=== PATIENT | male | born 1975 | race Caucasian/White ===

== ENCOUNTER 2018-03-02 10:39 | Outpatient (REF) | payer BC, SELFPAY ==
[2018-03-02 21:45] LABS: Abs Immature Grans 0.01 k/cumm (0.0-0.09); Absolute Basophil Count 0.05 k/cumm (0.0-0.2); Absolute Eosinophil Count 0.12 k/cumm (0.0-0.7); Absolute Lymphocyte Count 1.35 k/cumm (1.2-3.4); Absolute Monocyte Count 0.61 k/cumm (0.11-0.7); Absolute Neutrophil Count 5.95 k/cumm (1.2-6.7); Basophils % 0.6; Eosinophils % 1.5; HCT 46.9 % (40.0-50.0); HGB 15.8 g/dL (13.5-17.5); Immature Grans % 0.1; Lymphocytes % 16.7; Mean Corp. HGB Concentration 33.7 g/dL (32.0-36.0); Mean Corpuscular Hemoglobin 30.9 pg (27.0-33.0); Mean Corpuscular Volume 91.8 fL (80-95); Mean Platelet Volume 11.3 fL (8.0-11.0); Monocytes % 7.5; Neutrophils % 73.6; Platelet Count 236 x1000/uL (130-400); RBC 5.11 m/cumm (4.50-6.00); RBC Distribution Width 12.9 % (11.8-14.1); White Blood Cell Count 8.09 k/cumm (4.4-10.8)
[2018-03-02 21:53] LABS: Anion Gap 8.6 mmol/L (3-11); BUN 13 mg/dL (7-18); C-Reactive Protein 0.57 mg/dL (0.0-0.3); CO2 28.4 mmol/L (21.0-32.0); CREATININE 1.12 mg/dL (0.70-1.30); Calcium 8.6 mg/dL (8.5-10.1); Chloride 102 mmol/L (98-107); Glucose 163 mg/dL (70-100); Potassium 4.5 mmol/L (3.5-5.1); Sodium 139 mmol/L (136-145); Uric Acid 6.8 mg/dL (3.5-7.2)
[2018-03-02 22:52] LABS: ESR 6 MM/HR (0-15)
== END 2018-03-02 10:59 ==
LOC: NCHCN 10:39
PROVIDERS: PCP Family Medicine; Visit Provider Nurse Practitioner Family
DX: M79.672 Pain in left foot (principal)
CPT/HCPCS: 80048; 85652; 84550; 85025; 86140

== ENCOUNTER 2018-05-30 15:00 | Outpatient (REF) | payer BC, SELFPAY ==
[2018-05-30 20:50] LABS: ALT 95 U/L (12-78); AST 28 U/L (15-37); Albumin 4.1 g/dL (3.4-5.0); Alkaline Phosphatase 76 U/L (46-116); Anion Gap 10.3 mmol/L (3-11); BUN 16 mg/dL (7-18); Bilirubin, Total 0.4 mg/dL (0.2-1.0); C-Reactive Protein 0.65 mg/dL (0.0-0.3); CO2 27.7 mmol/L (21.0-32.0); CREATININE 1.09 mg/dL (0.70-1.30); Chloride 100 mmol/L (98-107); Glucose 127 mg/dL (70-100); Lipase 234 U/L (73-393); Potassium 4.2 mmol/L (3.5-5.1); Sodium 138 mmol/L (136-145); Total Protein 7.7 g/dL (6.4-8.2); Uric Acid 7.3 mg/dL (3.5-7.2)
== END 2018-05-30 15:20 ==
LOC: NCHCN 15:00
PROVIDERS: PCP Family Medicine; Visit Provider Family Medicine
DX: R10.13 Epigastric pain (principal); M10.9 Gout, unspecified
CPT/HCPCS: 80053; 83690; 84550; 86140

== ENCOUNTER 2018-08-02 00:33 | Outpatient (CLI) | payer BC, SELFPAY ==
--- NOTE | 2018-08-02 08:20 | DI.US_ITS ---
SYMPTOMS/DIAGNOSIS: ELEVATED LIVER ENZYMES, R74.8 ABDOMINAL ULTRASOUND: The visualized portions of the aorta appear unremarkable. The inferior vena cava is normal. The liver is enlarged and appears echogenic. There is normal portal venous flow. No focal abnormality is apparent. The gallbladder wall is 2 mm thick. There is no evidence of cholelithiasis or ductal obstruction. As visualized, the head and body of the pancreas appear intact. The tail is not seen. The spleen has a maximum diameter of 11.7 cm and is acoustically homogeneous. The kidneys are unremarkable. The right kidney measures 12.8 cm, the left kidney 12.7 cm. There is no evidence of abdominal fluid. . SUMMARY: There is an apparent enlarged fatty liver. No focal hepatic abnormality is apparent.
== END 2018-08-02 00:53 ==
PROVIDERS: PCP Family Medicine; Visit Provider Family Medicine
DX: R74.8 Abnormal levels of other serum enzymes (principal); K76.0 Fatty (change of) liver, not elsewhere classified; R16.0 Hepatomegaly, not elsewhere classified
CPT/HCPCS: 76700

== ENCOUNTER 2018-10-03 09:01 | Outpatient (REF) | payer BC, SELFPAY ==
[2018-10-03 21:55] LABS: Ferritin 244 ng/mL (8-388); TSH (W/Ref FT4) 0.96 uIU/mL (0.358-3.74)
== END 2018-10-03 09:21 ==
LOC: NCHCN 09:01
PROVIDERS: PCP Family Medicine; Visit Provider Family Medicine
DX: R06.02 Shortness of breath (principal)
CPT/HCPCS: 82728; 84443

== ENCOUNTER 2019-06-15 19:16 | Outpatient (REF) | payer BC, SELFPAY ==
[2019-06-14 21:13] LABS: ALT 74 U/L (16-63); AST 23 U/L (15-37); Albumin 4.2 g/dL (3.4-5.0); Alkaline Phosphatase 67 U/L (46-116); Anion Gap 6.6 mmol/L (3-11); BUN 12 mg/dL (7-18); Bilirubin, Total 0.4 mg/dL (0.2-1.0); CO2 31.4 mmol/L (21.0-32.0); COMMENT (LAB VIEW ONLY) 151.37 mg/dL; CREATININE 1.05 mg/dL (0.70-1.30); Calcium 8.9 mg/dL (8.5-10.1); Calculated LDL 129 mg/dL; Chloride 103 mmol/L (98-107); Cholesterol 235 mg/dL (<200); Glucose 87 mg/dL (74-106); HDL Cholesterol 33 mg/dL (40-60); Microalb ug/mg Crea 1.4 ug/mg Cr; Potassium 4.1 mmol/L (3.5-5.1); Sodium 141 mmol/L (136-145); Total Protein 7.6 g/dL (6.4-8.2); Triglyceride 365 mg/dL (<150)
== END 2019-06-15 19:36 ==
LOC: NCHCN 19:16
PROVIDERS: PCP Family Medicine; Visit Provider Nurse Practitioner Family
DX: R53.83 Other fatigue (principal); I10 Essential (primary) hypertension; E66.9 Obesity, unspecified
CPT/HCPCS: 80053; 80061; 82043; 82570

== ENCOUNTER 2019-09-28 10:27 | Emergency (ER) | payer BC, SELFPAY ==
[2019-09-28] VITALS (25 sets, daily range): BP systolic 137–162; BP diastolic 61–102; PULSE 76–101; RESP 14–25; TEMP 36.6–37.1; O2SAT 91–97
--- NOTE | 2019-09-28 10:36 | W.ED.GENAD ---
Discharge Plan Disposition Patient Disposition: HOME Condition: Good Discharge Details Chief Complaint: Palpitatns Clinical Impression: Palpitations Primary Care Provider: Lashon Waldron ED Provider: Ling Lizarraga Home Meds and New Rx's Prescriptions: Continued lorazepam 0.5 mg tablet 0.5 mg PO QHS PRNRF: 0 lisinopril 20 mg tablet 20 mg PO DAILY RF: 0 omeprazole 20 mg capsule,delayed release(DR/EC) 20 mg PO DAILY PRNRF: 0 Discharge Instructions Instructions: Palpitations (ED) Additional Instructions: Drink plenty of fluids and get plenty of rest. Return the Holter monitor as directed. Follow-up with your primary care doctor in 1 week for reevaluation for referral for a longer duration dry cleaning manager if needed or a stress test if symptoms persist or worsen. Return to the emergency department with any worsening or new concerning symptoms. Discharge Data Discharge Physician: Ling Lizarraga Medical Decision Making 1045 -- 43-year-old male with a history of palpitations, hypertension, obesity, former tobacco smoker presents with palpitations since last night and left arm pain this morning. Also admits to a few months of intermittent chest pressure. He is a daily alcoholic drinker and had 4 drinks last night. EKG on arrival notes a rate of 94, sinus, no acute ST elevation or depression. Patient appears nontoxic and in no acute distress. He denies any palpitations or chest pain at present. Lungs clear. Of note patient was seen here 5 years ago for similar presentation and had a Holter monitor which noted occasional PVCs and a stress test was negative for ischemia. History and presentation not consistent with dissection, PE. Considering patient's history and risk factors, will obtain a cardiac work-up, chest x-ray and give fluids and reassess. 1215 --labs and imaging reviewed and unremarkable. Negative troponin. Negative d-dimer. Chest x-ray negative. Patient reassessed -he is texting on phone and currently asymptomatic. Patient states he feels good to go home. We will place a Holter monitor and refer for follow-up with primary care doctor. It was discussed that a longer duration dry cleaning manager stress test could be indicated if symptoms persist or worsen. Usual and customary return precautions given prior to discharge. Medical Records Medical records reviewed: Yes I reviewed the patient's medical records. Imaging Data Radiologic Study: Radiologist's impression: XR CHEST 2V PA LATERAL CLINICAL HISTORY: chest pain, palpitations, r/o acute disease TECHNIQUE: 2D digital imaging was performed. COMPARISON: CHEST 2 VIEWS PA,LAT from 04/25/2015 FINDINGS: The heart is not enlarged. The lungs are clear and well expanded. No pleural effusion seen. Mediastinal contours appear intact. IMPRESSION: Normal chest Lab Data Lab results reviewed: Yes I reviewed the patient's lab results. Labs: Laboratory Tests Range/Units 09/28/19 09/28/19 09/28/19 10:40 10:40 10:40 WBC (4.4-10.8) k/cumm 7.51 RBC (4.50-6.00) m/cumm 5.04 Hgb (13.5-17.5) g/dL 16.0 Hct (40.0-50.0) % 45.1 MCV (80-95) fL 89.5 MCH (27.0-33.0) pg 31.7 MCHC (32.0-36.0) g/dL 35.5 RDW (11.8-14.1) % 12.5 Plt Count (130-400) x1000/uL 266 MPV (8.0-11.0) fL 11.0 Immature Gran % % 0.3 Neutrophils % 71.0 Lymphocytes % 21.6 Monocytes % 5.3 Eosinophils % 1.3 Basophils % 0.5 Absolute Neutrophils (1.2-6.7) k/cumm 5.33 Absolute Lymphocytes (1.2-3.4) k/cumm 1.62 Absolute Monocytes (0.11-0.7) k/cumm 0.40 Absolute Eosinophils (0.0-0.7) k/cumm 0.10 Absolute Basophils (0.0-0.2) k/cumm 0.04 D-Dimer (<500) ng/mlFEU 171 Sodium (136-145) mmol/L 137 Potassium (3.5-5.1) mmol/L 3.9 Chloride (98-107) mmol/L 102 Carbon Dioxide (21.0-32.0) mmol/L 26.7 Anion Gap (3-11) mmol/L 8.3 BUN (7-18) mg/dL 15 Creatinine (0.70-1.30) mg/dL 1.04 Estimated GFR/1.73 m2 (mL/min/1.73m2) >= 60.00 Glucose (74-106) mg/dL 196 H Calcium (8.5-10.1) mg/dL 8.7 Magnesium (1.8-2.4) mg/dL 2.1 Total Bilirubin (0.2-1.0) mg/dL 0.4 AST (15-37) U/L 31 ALT (16-63) U/L 97 H Alkaline Phosphatase (46-116) U/L 71 Troponin I (<0.06) ng/Ml < 0.05 Total Protein (6.4-8.2) g/dL 7.6 Albumin (3.4-5.0) g/dL 4.0 ECG Data Attestation: I personally reviewed and interpreted this ECG (s) as follows: Interpretation: Rate of 94, sinus, no acute ST elevation or depression. OH 154. QTc 428. QRS 102. HPI General Mode of arrival: ambulatory. Date/Time Provider Initiated Documentation: 09/28/19 10:29. Limitations to Documentation: no limitations. Information obtained by: patient. HPI Narrative: Patient is a 43-year-old male with a history of palpitations, hypertension, obesity presents for palpitations since yesterday and left arm pain this morning. Patient states he was sitting at home last night when the symptoms of palpitations started. He states he drank whiskey and the palpitations resolved. He states the palpitations returned this morning. He states he usually drinks 1-2 drinks daily but had 5 alcoholic drinks last night. Patient states he is also having 3 to 4 months of intermittent substernal chest pressure. He denies any chest pain or palpitations at present. He admits to occasional nausea and dizziness but denies any shortness of breath. He denies any recent fever, cough, travel, surgery, leg pain. He states he has occasional bilateral leg swelling but states he eats a lot of salt. Patient drove himself to the emergency department. Related Data Home Medications Medication Instructions Recorded Confirmed lisinopril 20 mg tablet 20 mg PO DAILY 09/25/19 09/28/19 lorazepam 0.5 mg tablet 0.5 mg PO QHS PRN 09/25/19 09/28/19 omeprazole 20 mg capsule,delayed 20 mg PO DAILY PRN 09/25/19 09/28/19 release Allergies Allergy/AdvReac Type Severity Reaction Status Date / Time Penicillins Allergy Unknown Unverified 09/28/19 10:38 Review of Systems All systems reviewed & are unremarkable except as noted in HPI and below Constitutional Constitutional: Reports as per HPI, Denies chills and Denies fever(s) Eyes Eyes: Denies blurry vision ENT Ears, Nose, Mouth, and Throat: Denies dizziness, Denies sore throat and Denies throat swelling Cardiovascular Cardiovascular: Denies chest pain, Reports rapid heart rate and Denies dyspnea Respiratory Respiratory: Denies cough and Denies dyspnea Gastrointestinal Gastrointestinal: Denies abdominal pain, Denies diarrhea and Denies vomiting Genitourinary Genitourinary: Denies hematuria and Denies dysuria Musculoskeletal Musculoskeletal: Denies back pain and Denies numbness Integumentary/Breasts Skin/Breast: Denies lesions and Denies rash Neurologic Neurologic: Denies dizziness, Denies localized weakness and Denies numbness Allergic/Immunologic Allergic/Immunologic: Denies throat swelling [facility] Medical History (Updated 09/28/19 @ 12:16 by Ling Lizarraga DO) Erectile dysfunction (Acute) Fatigue (Acute) Fatty (change of) liver, not elsewhere classified (Acute) Foot pain, left (Acute) Gout (Chronic) History of cigarette smoking (Acute) Hypertension (Chronic) Obesity (Chronic) Social History Smoking/Tobacco Use Status: Former Tobacco Use Alcohol Intake: current Alcohol Intake frequency: 0-2 drinks per day Drug use: Never Substance use type: does not use Do you feel safe at home: Yes Do you feel safe in your relationship?: Yes Exam Const General: cooperative, healthy appearing and no acute distress HENMT Head: normal to inspection Face and sinus: normal facial exam Eyes General: appearance normal, both eyes and all related structures EOM: EOM intact bilaterally Neck Neck: normal visual inspection and No submandibular swelling Lymphatic: no lymphadenopathy noted Chest Chest: normal inspection of the chest and no tenderness Resp Effort & Inspection: normal respiratory effort and able to speak in complete sentences Auscultation: clear to auscultation bilaterally Cardio Rate: regular rate Rhythm: regular rhythm GI Inspection: normal to inspection Palpation: soft, not firm, not rigid and nontender Auscultation: normal bowel sounds Skin General skin exam: no rashes or lesions noted Neuro General: patient alert, patient awake and patient oriented x3 Cognition: normal cognition Speech: speech normal Motor: muscle tone normal throughout Sensory Exam: no sensory deficits noted Extrem General: normal to inspection, full ROM, capillary refill normal, no calf tenderness bilaterally and no edema Psych Appearance: grossly normal Mental Status: mental status grossly normal Speech and Movement: speech and movement normal Affect: normal affect
[2019-09-28] MEDS: Normal Saline 1,000 ML 1000 ML IV (11:06)
[2019-09-28 11:14] LABS: Abs Immature Grans 0.02 k/cumm (0.0-0.09); Absolute Basophil Count 0.04 k/cumm (0.0-0.2); Absolute Lymphocyte Count 1.62 k/cumm (1.2-3.4); Absolute Neutrophil Count 5.33 k/cumm (1.2-6.7); Basophils % 0.5; Eosinophils % 1.3; HCT 45.1 % (40.0-50.0); Immature Grans % 0.3 %; Lymphocytes % 21.6; Mean Corp. HGB Concentration 35.5 g/dL (32.0-36.0); Mean Corpuscular Hemoglobin 31.7 pg (27.0-33.0); Mean Corpuscular Volume 89.5 fL (80-95); Monocytes % 5.3; Platelet Count 266 x1000/uL (130-400); RBC 5.04 m/cumm (4.50-6.00); RBC Distribution Width 12.5 % (11.8-14.1); White Blood Cell Count 7.51 k/cumm (4.4-10.8)
--- NOTE | 2019-09-28 11:20 | DI.RAD_ITS ---
EXAM: XR CHEST 2V PA LATERAL CLINICAL HISTORY: chest pain, palpitations, r/o acute disease TECHNIQUE: 2D digital imaging was performed. COMPARISON: CHEST 2 VIEWS PA,LAT from 04/25/2015 FINDINGS: The heart is not enlarged. The lungs are clear and well expanded. No pleural effusion seen. Mediastin al contours appear intact. IMPRESSION: Normal chest
[2019-09-28 11:32] LABS: ALT 97 U/L (16-63); AST 31 U/L (15-37); Alkaline Phosphatase 71 U/L (46-116); Anion Gap 8.3 mmol/L (3-11); BUN 15 mg/dL (7-18); Bilirubin, Total 0.4 mg/dL (0.2-1.0); CO2 26.7 mmol/L (21.0-32.0); CREATININE 1.04 mg/dL (0.70-1.30); Calcium 8.7 mg/dL (8.5-10.1); Chloride 102 mmol/L (98-107); Glucose 196 mg/dL (74-106); Magnesium 2.1 mg/dL (1.8-2.4); Potassium 3.9 mmol/L (3.5-5.1); Sodium 137 mmol/L (136-145); Total Protein 7.6 g/dL (6.4-8.2)
[2019-09-28 11:37] LABS: Troponin I < 0.05 ng/Ml (<0.06)
[2019-09-28 12:10] LABS: D-Dimer 171 ng/mlFEU (<500)
== END 2019-09-28 13:00 | disposition home or self-care (01) ==
PROVIDERS: Emergency Provider Physician Assistant; PCP Internal Medicine
DX: R00.2 Palpitations (principal); R07.89 Other chest pain; Z72.89 Other problems related to lifestyle; I10 Essential (primary) hypertension; Z87.891 Personal history of nicotine dependence
CPT/HCPCS: 80053; 93005; 96360; 99285; 71046; 83735; 84484; 85025; 85379; 93010; 93225; 99284

== ENCOUNTER 2019-10-01 11:27 | Outpatient (CLI) | payer BC, SELFPAY ==
--- NOTE | 2019-10-01 13:42 | W.HOLTRPT ---
Date of service: 10/01/19 Time of Service: 13:42 Holter Monitor Report Holter Monitor Note: This is a 2-day Holter monitor ordered for the indication of palpitations. ?The patient was in normal sinus rhythm for the majority of the recording. ?There were 2 episodes of supraventricular tachycardia with the longest lasting 3 beats. There were rare PACs. ?There were no episodes of ventricular tachycardia and rare (0.2%) single ventricular ectopic beats. ?There were no episodes of atrial fibrillation, no evidence of high degree heart block and no pauses greater than 3 seconds. ?There were no patient triggered events.
== END 2019-10-01 11:47 ==
PROVIDERS: PCP Internal Medicine; Visit Provider Internal Medicine
DX: R00.1 Bradycardia, unspecified (principal); I47.1 Supraventricular tachycardia
CPT/HCPCS: 93226

== ENCOUNTER 2019-10-05 19:17 | Emergency (ER) | payer BC, SELFPAY ==
[2019-10-05] VITALS (30 sets, daily range): BP systolic 132–166; BP diastolic 69–95; PULSE 74–87; RESP 10–25; TEMP 36.6–36.7; O2SAT 94–99
--- NOTE | 2019-10-05 20:03 | W.ED.GENAD ---
Discharge Plan Disposition Patient Disposition: HOME Condition: Serious Discharge Details Chief Complaint: Chest Pain Clinical Impression: Hypertension, Palpitations, Chest pain Primary Care Provider: Lashon Waldron ED Provider: Ney Coelho Home Meds and New Rx's Prescriptions: New metoprolol succinate 25 mg tablet extended release 24 hr 25 mg PO DAILY Qty: 30 RF: 0 Continued lorazepam 0.5 mg tablet 0.5 mg PO QHS PRNRF: 0 lisinopril 20 mg tablet 20 mg PO DAILY RF: 0 omeprazole 20 mg capsule,delayed release(DR/EC) 20 mg PO DAILY PRNRF: 0 Discharge Instructions Instructions: Chest Pain (ED), Heart Palpitations (ED), Hypertension (ED) Additional Instructions: You should have a cardiac stress test performed soon as possible. Please call to arrange stress test. Please follow-up with your primary care physician. Call on Tuesday. Please contact your primary care physician to arrange follow-up. Please decrease alcohol consumption as alcohol is known to cause cardiac irritability. Return to the ER for any worsening or new concerning symptoms. Referrals: Lashon Waldron [Primary Care Provider] - Medical Decision Making 21:30 -- 43-year-old male with history of hypertension, former smoker, here with palpitations intermittent over the past couple weeks, generalized weakness and generally not feeling well today, hypertensive at home despite taking lisinopril, also with left anterior chest discomfort that is focal and without radiation. Patient was recently seen here in the emergency department and had nondiagnostic work-up. He did complete 48-hour Holter monitoring. I obtained and reviewed Holter record. Holter monitor from 10/01/2019 interpretation was reviewed: Holter Monitor Note: This is a 2-day Holter monitor ordered for the indication of palpitations. ?The patient was in normal sinus rhythm for the majority of the recording. ?There were 2 episodes of supraventricular tachycardia with the longest lasting 3 beats. There were rare PACs. ?There were no episodes of ventricular tachycardia and rare (0.2%) single ventricular ectopic beats. ?There were no episodes of atrial fibrillation, no evidence of high degree heart block and no pauses greater than 3 seconds. ?There were no patient triggered events. Consider arrhythmia. Screening ECG was reviewed and interpreted by me: Sinus rhythm, 75 bpm, normal axis, subtle ST depressions are noted laterally V4 to V6, no delta wave, no signs of Brugada or hypertrophic obstructive cardiomyopathy. No significant change in ECG compared to 09/28/2019. Consider ACS. Initial labs reviewed and initial troponin negative. Plan to obtain delta troponin. Patient has had recent pitting edema of the legs. Consider congestive heart failure - will check BNP. Considered hyperthyroidism. TSH normal. Consider electrolyte abnormalities. Electrolytes are within normal limits. --Repeat ECG was reviewed and interpreted by me: Normal sinus rhythm 75 bpm, normal axis, no change from prior. Repeat delta troponin at 3 hours was normal and unchanged from prior. D-dimer negative. Patient was reassessed and has remained stable, BP improved, has not had symptoms, noted feels great. No alarms noted on cardiac monitoring. Plan will be to initiate treatment with metoprolol to hopefully reduce palpitations and treat persistent hypertension. Plan will be for outpatient follow-up with PCP and outpatient stress testing. Disposition decision was made weighing the risks and benefits of hospitalization versus outpatient treatment, the risk for further decompensation, and the patient's wishes. The patient was stable and requested discharge. Prior to discharge, my usual and customary return precautions were reviewed with the patient - this included follow-up instructions and reason to return to the emergency department if condition worsens, does not improve as expected, or other new concerns arise. HPI General Mode of arrival: ambulatory. Date/Time Provider Initiated Documentation: 10/05/19 19:21. Limitations to Documentation: no limitations. Information obtained by: patient. HPI Narrative: 43-year-old male with history of hypertension, presents today with chief complaint of palpitations. Patient notes he has had palpitations intermittently over the past 2 weeks or so. Palpitations come and brief episodes lasting minutes and then resolved. He describes them as a fluttering or skipping a beat. Patient also notes some associated chest discomfort that is described as cramp in his ribs, localized to left lower anterior chest. Discomfort is focal and does not radiate. No associated back pain. Today has had associated jitteriness and some generalized weakness. This afternoon he has been generally not feeling well. His checked his blood pressure and was noted to be elevated 167/101 and he decided to come to the emergency department for evaluation. Of note, he was seen here and evaluated in the emergency department on 09/28/2019. Patient does have a history of hypertension and has been taking antihypertensive as prescribed. He does note that he has had some edema bilateral lower extremities that was first noticed a couple weeks ago. He is not sure if this was present in the past. Related Data Home Medications Medication Instructions Recorded Confirmed lisinopril 20 mg tablet 20 mg PO DAILY 09/25/19 10/05/19 lorazepam 0.5 mg tablet 0.5 mg PO QHS PRN 09/25/19 10/05/19 omeprazole 20 mg capsule,delayed 20 mg PO DAILY PRN 09/25/19 10/05/19 release metoprolol succinate 25 mg PO DAILY #30 tab 10/05/19 Previous Rx's Medication Instructions Recorded metoprolol succinate 25 mg PO DAILY #30 tab 10/05/19 Allergies Allergy/AdvReac Type Severity Reaction Status Date / Time Penicillins Allergy Unknown Unverified 10/05/19 19:26 General Stated Complaint: Chest Pain CANDE: 3 Review of Systems All systems reviewed & are unremarkable except as noted in HPI and below Constitutional Constitutional: Denies fever(s) Cardiovascular Cardiovascular: Reports chest pain and Denies dyspnea Respiratory Respiratory: Reports cough (Chronic unchanged) and Denies dyspnea Gastrointestinal Gastrointestinal: Denies abdominal pain, Denies nausea and Denies vomiting [facility] Medical History Erectile dysfunction (Acute) Fatigue (Acute) Fatty (change of) liver, not elsewhere classified (Acute) Foot pain, left (Acute) Gout (Chronic) History of cigarette smoking (Acute) Hypertension (Chronic) Obesity (Chronic) Social History Smoking/Tobacco Use Status: Former Tobacco Use Alcohol Intake: current Alcohol Intake frequency: 0-2 drinks per day Alcohol type: beer, wine and hard liquor Drug use: Never Substance use type: does not use Do you feel safe at home: Yes Do you feel safe in your relationship?: Yes Exam Const General: cooperative and no acute distress HENMT Mouth: moist mucous membranes Eyes Conjunctivae: normal conjunctivae Sclera: normal sclerae Neck Neck: trachea midline Resp Auscultation: clear to auscultation bilaterally, no rales, no rhonchi and no wheezes Cardio Jugular venous pressure: no JVD Rate: regular rate and not tachycardic Rhythm: regular rhythm GI Palpation: soft, not firm, no guarding, no masses, not rigid and nontender Skin General skin exam: no rashes or lesions noted Neuro General: patient alert, patient awake and tone normal Extrem General: no calf tenderness and edema Laterality: bilateral (Trace pitting up to shins) Psych Appearance: grossly normal Mental Status: mental status grossly normal Course Vital Signs Vital signs: Vital Signs Temperature 36.6 C 10/05/19 19:21 Pulse 75 10/05/19 19:21 Respiratory Rate 19 10/05/19 19:21 Blood Pressure 166/95 H 10/05/19 19:21 Pulse Oximetry 99 10/05/19 19:21 Temperature 36.6 C 10/05/19 19:21 Temperature Source Skin 10/05/19 19:21 Pulse 79 10/05/19 19:24 Pulse 83 10/05/19 19:25 Respiratory Rate 18 10/05/19 19:25 Respiratory Effort Non-Labored 10/05/19 19:32 Respiratory Pattern Normal 10/05/19 19:32 Blood Pressure 166/95 H 10/05/19 19:24 Blood Pressure Mean 111 10/05/19 19:24 Blood Pressure Position Supine 10/05/19 19:21 Pulse Oximetry 98 10/05/19 19:25 Oxygen Delivery Method Room Air 10/05/19 19:21 Oxygen Flow Rate 0 10/05/19 19:21
[2019-10-05 20:18] LABS: Abs Immature Grans 0.02 k/cumm (0.0-0.09); Absolute Basophil Count 0.04 k/cumm (0.0-0.2); Absolute Eosinophil Count 0.14 k/cumm (0.0-0.7); Absolute Monocyte Count 1.03 k/cumm (0.11-0.7); Absolute Neutrophil Count 6.23 k/cumm (1.2-6.7); Basophils % 0.4; Eosinophils % 1.4; HCT 48.1 % (40.0-50.0); HGB 16.5 g/dL (13.5-17.5); Immature Grans % 0.2 %; Lymphocytes % 25.8; Mean Corp. HGB Concentration 34.3 g/dL (32.0-36.0); Mean Corpuscular Volume 90.2 fL (80-95); Mean Platelet Volume 10.6 fL (8.0-11.0); Monocytes % 10.2; Platelet Count 275 x1000/uL (130-400); RBC 5.33 m/cumm (4.50-6.00); RBC Distribution Width 12.6 % (11.8-14.1); White Blood Cell Count 10.06 k/cumm (4.4-10.8)
--- NOTE | 2019-10-05 20:46 | NUR.NOTE ---
report given to MARLEY Matthews
[2019-10-05 21:03] LABS: ALT 113 U/L (16-63); AST 33 U/L (15-37); Albumin 4.2 g/dL (3.4-5.0); Alkaline Phosphatase 62 U/L (46-116); Anion Gap 11.4 mmol/L (3-11); BUN 14 mg/dL (7-18); Bilirubin, Total 0.4 mg/dL (0.2-1.0); CO2 26.6 mmol/L (21.0-32.0); CREATININE 1.08 mg/dL (0.70-1.30); Calcium 8.9 mg/dL (8.5-10.1); Chloride 101 mmol/L (98-107); Glucose 95 mg/dL (74-106); Magnesium 2.4 mg/dL (1.8-2.4); NT-proBNP 7 pg/mL (<300); Potassium 3.9 mmol/L (3.5-5.1); Sodium 139 mmol/L (136-145); TSH (W/Ref FT4) 0.96 uIU/mL (0.36-3.74); Total Protein 8.1 g/dL (6.4-8.2)
[2019-10-05 21:08] LABS: Troponin I < 0.05 ng/Ml (<0.06)
[2019-10-05 21:25] LABS: D-Dimer 235 ng/mlFEU (<500)
[2019-10-05 22:47] LABS: Troponin I < 0.05 ng/Ml (<0.06)
[2019-10-05] MEDS: Metoprolol CR 25 MG TABCR PO (23:00)
== END 2019-10-05 23:00 | disposition home or self-care (01) ==
PROVIDERS: Emergency Provider Student in an Organized Health Care Education/Training Program; PCP Internal Medicine
DX: R00.2 Palpitations (principal); R07.89 Other chest pain; I10 Essential (primary) hypertension
CPT/HCPCS: 80053; 93005; 99284; 83735; 83880; 84443; 84484; 85025; 85379; 93010

== ENCOUNTER 2019-10-23 01:50 | Outpatient (CLI) | payer BC, SELFPAY ==
--- NOTE | 2019-10-23 08:00 | ETT_ITS ---
APPROVED REPORT Exam: Exercise Treadmill Patient Location: Out-Patient Room/Bed: Stress Nurse: Lisa Mix RN BMI: 38.25 Baseline Rhythm: Sinus Rhythm Indications: Palpitations. Hypertension. Medical History Medical History: HTN Cardiac Medications: Metoprolol succinate. Lisinopril. , Allergies: Penicillins Cardiac Risk Factors: HTN. Borderline HLD. Former smoker. Exercise History: Physically active Lung Sounds: Clear to auscultation Heart Sounds: Regular Stress Test Details Test: Exercise stress testing was performed using a Jair protocol. Rest Stress HR Resting HR Supine: 75 bpm Max Heart Rate (APMHR): 176 bpm Resting HR Standin bpm Target HR (85% APMHR): 149 bpm Max HR Achieved: 171 bpm % of APMHR: 97 Recovery HR: 103 bpm HR response to stress: Normal HR response to stress BP Resting BP Supine: 164/98 mmHg Resting BP Standin/102 mmHg Max BP: 180/92 mmHg Recovery BP: 174/94 mmHg BP response to stress: Normal blood pressure response to stress. Comment: Hypertensive BP at baseline ECG Resting ECG: Sinus Rhythm Ectopy: VPC Stress ECG: Sinus Tachycardia ST Change: No significant ST segment changes Arrhythmia: VPC's Comment: Infrequent VPC's Recovery ECG: Sinus Rhythm Recovery ST Change: No significant ST segment changes Clinical Reason for Termination: Fatigue Stress Symptoms: General Fatigue Exercise duration: 12 min0 sec Highest Stage Reached: Stage 4: 4.2 mph at 16% grade. Exercise capacity: 13.48 METs Functional Capacity: Average Capacity Stress ECG Conclusion 1. The patient exercised on the Jair protocol and completed a workload of 13.48 METS without symptom s to suggest angina 2. Hypertension at rest. Normal blood pressure and heart rate response to exercise 3. Normal resting electrocardiogram. No electrocardiographic evidence of myocardial ischemia at 97% of predicted heart rate for age 4. Sporadic ventricular ectopic beats were noted Stress Test Summary STAGE Time (mins) Speed (mph) Grade (%) HR BP SYMPTOMS METS Supine 75 164/98 Standing 88 170/102 1 3 1.7 10 111 172/96 4.6 2 6 2.5 12 124 178/94 7 3 9 3.4 14 145 176/98 10.2 4 12 4.2 16 171 12.9 1 min recovery 132 180/92 3 min recovery 117 178/96 6 min recovery 107 174/94 9 min recovery 103
== END 2019-10-23 02:10 ==
PROVIDERS: PCP Internal Medicine; Visit Provider Nurse Practitioner Family
DX: R00.2 Palpitations (principal); I10 Essential (primary) hypertension; Z87.891 Personal history of nicotine dependence
CPT/HCPCS: 93017

== ENCOUNTER 2020-03-04 08:30 | Outpatient (REF) | payer BC, SELFPAY ==
[2020-03-04 21:05] LABS: Calculated LDL 89 mg/dL (<100); Cholesterol 153 mg/dL (<200); Glucose 125 mg/dL (74-106); HDL Cholesterol 31 mg/dL (40-60); Triglyceride 168 mg/dL (<150)
== END 2020-03-04 08:50 ==
LOC: NCHCN 08:30
PROVIDERS: PCP Internal Medicine; Visit Provider Nurse Practitioner Family
DX: E78.5 Hyperlipidemia, unspecified (principal); E11.9 Type 2 diabetes mellitus without complications
CPT/HCPCS: 80061; 82947

== ENCOUNTER 2020-05-13 19:23 | Outpatient (REF) | payer BC, SELFPAY ==
[2020-05-13 21:51] LABS: Abs Immature Grans 0.07 10^3/uL (0.0-0.06); Absolute Eosinophil Count 0.07 10^3/uL (0.0-0.7); Absolute Monocyte Count 0.79 10^3/uL (0.1-0.8); Basophils % 0.4; Eosinophils % 0.5; HCT 45.7 % (40.0-50.0); HGB 15.3 g/dL (13.5-17.5); Immature Grans % 0.5; Lymphocytes % 10.3; MCH 31.1 pg (27.0-33.0); MCHC 33.5 % (32.0-36.0); MCV 92.9 fL (80-95); MPV 11.2 fL (8.0-11.0); Monocytes % 5.8; Neutrophils % 82.5; Nucleated RBC 0 %; Platelet Count 250 10^3/uL (130-400); RBC 4.92 10^6/uL (4.36-5.78); RDW 12.2 % (11.8-14.1); WBC 13.63 10^3/uL (4.4-10.8)
[2020-05-13 21:52] LABS: Absolute Basophil Count 0.05 10^3/uL (0.0-0.2); Absolute Neutrophil Count 11.24 10^3/uL (1.2-6.7)
[2020-05-13 22:36] LABS: Hemoglobin A1C 6.5 % (<5.7)
[2020-05-13 22:51] LABS: ALT 72 U/L (16-63); AST 30 U/L (15-37); Alkaline Phosphatase 84 U/L (46-116); Anion Gap 8.9 mmol/L (3-11); BUN 15 mg/dL (7-18); Bilirubin, Total 0.6 mg/dL (0.2-1.0); CO2 25.1 mmol/L (21.0-32.0); CREATININE 1.22 mg/dL (0.70-1.30); Calcium 8.6 mg/dL (8.5-10.1); Chloride 101 mmol/L (98-107); Glucose 204 mg/dL (74-106); Lipase 164 U/L (73-393); Potassium 4.3 mmol/L (3.5-5.1); Sodium 135 mmol/L (136-145); Total Protein 7.3 g/dL (6.4-8.2)
== END 2020-05-13 19:43 ==
LOC: NCHCN 19:23
PROVIDERS: PCP Internal Medicine; Visit Provider Nurse Practitioner Family
DX: R73.03 Prediabetes (principal); R10.9 Unspecified abdominal pain
CPT/HCPCS: 80053; 83690; 83036; 85025

== ENCOUNTER 2020-05-14 13:47 | Emergency (ER) | payer BC, SELFPAY ==
[2020-05-14 14:04] VITALS: BP 125/75; PULSE 104; RESP 18; TEMP 37.2; O2SAT 96
--- NOTE | 2020-05-14 14:15 | DI.CT_ITS ---
EXAM: CT ABDOMEN PELVIS W CLINICAL HISTORY: Abdominal pain TECHNIQUE: Imaging Protocol: Axial computed tomography images with coronal and sagittal reformatted images were created and reviewed CONTRAST MATERIAL: Intravenous: Omnipaque 350 Contrast volume:structured data in ml Oral: yes / no COMPARISON: No exams were available for comparison FINDINGS: ABDOMEN: Lung Bases: Mild benign-appearing increased markings in the posterior basal segment left lower lobe. No pleural effusion. Liver: Hepatic steatosis. No discrete focal hepatic lesions. Portal, Superior Mesenteric, and Splenic Veins: Gallbladder and Biliary Tract: No radiodense calculus or dilation. Pancreas: Normal density, no abnormal calcifications or inflammatory process. Spleen: Normal. Adrenals: No masses seen. Kidneys: Normal size, contour and axis. No radiodense stones or obstructive uropathy. No masses seen. Abdominal Aorta: Abdominal portion non-dilated. Bowel: No evidence of appendicitis. However, there is and prominent does streaking around the sigmoi d consistent with probable acute diverticulitis. No abscess seen. No air evident within the adjacen t urinary bladder to suggest fistulous communication. There is no air in the portal venous system. No hepatic abscess. No evidence for appendicitis. Peritoneal Cavity: Lymph Nodes: Within normal limits. Bones: Unremarkable. Soft Tissues: Unremarkable. PELVIS: Bladder: Symmetric distention, no gross wall thickening. Reproductive Organs: Unremarkable as visualized. Lymph Nodes: Within normal limits. Bones: Within normal limits. IMPRESSION: 1. Acute sigmoid diverticulitis. No evidence of abscess at this time. 2. Hepatic steatosis. No focal hepatic lesions. RADIATION DOSE DELIVERED: 1,301.67mGy.cm Total DLP DATA REPOSITORY: All CT scans at this facility are submitted to the National Radiology Data Registry (NRDR) Dose Index Registry (DIR) with the [employer] ([employer]). RADIATION OPTIMIZATION: All CT scans at this facility use at least one of these dose optimization te chniques: automated exposure control; mA and/or kV adjustment per patient size (includes targeted exa ms where dose is matched to clinical indication); or iterative reconstruction.
--- NOTE | 2020-05-14 14:24 | ED.GENADUL_ITS ---
Discharge Plan Disposition Patient Disposition: HOME Condition: Fair Discharge Details Clinical Impression: Diverticulitis Primary Care Provider: Lashon Waldron ED Provider: Peace Cárdenas Home Meds and New Rx's Prescriptions: New metronidazole 500 mg tablet 500 mg PO TID 10 Days Qty: 30 RF: 0 ciprofloxacin HCl 500 mg tablet 500 mg PO BID 7 Days Qty: 14 RF: 0 promethazine 25 mg tablet 25 mg PO TID PRN (Reason: nausea and vomiting) Qty: 10 RF: 0 Continued lorazepam 0.5 mg tablet 0.5 mg PO QHS PRNRF: 0 lisinopril 20 mg tablet 20 mg PO DAILY RF: 0 omeprazole 20 mg capsule,delayed release(DR/EC) 20 mg PO DAILY PRNRF: 0 metoprolol succinate 25 mg tablet extended release 24 hr 25 mg PO DAILY Qty: 30 RF: 0 Discharge Instructions Instructions: Diverticulitis (ED) Additional Instructions: Your imaging is consistent with diverticulitis. Please see the attached information on this. Please encourage water intake. You may continue with Tylenol and/or ibuprofen as needed for discomfort. Please take the antibiotics as prescribed. You are given this evening's dosing here. You may use the Phenergan as prescribed to help with any recurrence of nausea. Please advance your diet slowly. I would like you to follow-up with your primary care on Tuesday for reevaluation. Please call Tuesday morning to schedule appointment. If in the interim, you develop increased pain, fever/chills, inability to hydrate or other new/worsening symptoms please seek care urgently once again. Stand Alone Forms: Work Release Referrals: Lashon Waldron [Primary Care Provider] - Discharge Data Discharge Date/Time-TO BE ENTERED AT DEPARTURE: 05/14/20 18:37 Medical Decision Making <Isabel Dodson - Last Filed: 05/15/20 08:02> 44-year-old male presents to the ER with chief complaint of lower abdominal pain which began on Tuesday. Associated with nausea and diarrhea, no vomiting. No history of abdominal surgeries. He was seen by his PCP yesterday and had labs drawn which showed a white blood cell count elevated slightly at 13. He has a past medical history of hypertension, obesity he is a smoker. CBC shows elevated white blood cell count at 16.18, sodium is 132, glucose 136, calcium 8.4, total bilirubin 1.3. CT abdomen pelvis with IV contrast ordered is pending at this time. Parents to be signed out to oncoming provider ADEEL Delgadillo pending CT abdomen pelvis. Differential diagnosis includes appendicitis, diverticulitis, cholecystitis, UTI, gastroenteritis. <ADEEL Padilla - Last Filed: 05/14/20 23:14> Care transition myself from Cheryl Cruz NP with CT of his abdomen pending. CT reviewed by radiologist: FINDINGS: Lungs: Minimal posterior bilateral lower lobe dependent atelectasis. The visualized lung lehman are otherwise clear. Liver: Generalized hepatic steatosis. Gallbladder and bile ducts: Normal. No calcified stones. No ductal dilation. Pancreas: Normal. No ductal dilation. Spleen: Normal. No splenomegaly. Adrenal glands: Normal. No mass. Kidneys and ureters: Normal. No hydronephrosis. Stomach and bowel: Diffuse sigmoid mesenteric fat stranding with sigmoid colon wall thickening and multiple diverticula consistent with acute diverticulitis. No evidence for free air to suggest diverticular perforation. No steven diverticular abscess. Appendix: Normal appendix. No secondary signs of appendicitis. Intraperitoneal space: See Stomach and bowel finding. Vasculature: Unremarkable. No abdominal aortic aneurysm. Lymph nodes: Unremarkable. No enlarged lymph nodes. Urinary bladder: Left superolateral urinary bladder wall thickening due to serosal inflammation from the diverticulitis but no colovesicular fistula at this time. Reproductive: Unremarkable as visualized. Bones/joints: Unremarkable. No acute fracture. Soft tissues: Unremarkable. IMPRESSION: 1. Acute uncomplicated diverticulitis. Adjacent superolateral left urinary bladder wall thickening but no communication to suggest colovesicular fistula at this time. 2. Mild generalized hepatic steatosis. Discussed the findings with the patient. He and I discussed potential risks associated with this. We discussed p.o. versus IV antibiotics. The patient he has had some nausea but not endorsing any nausea currently. He did refuse the morphine and Zofran that was initially offered to him. He would prefer to try p.o. antibiotics with hopes to be able to be discharged home with close follow- up with his primary care. We will give him Flagyl and ofloxacin orally here as well as a ciprofloxacin to ensure that he can be able to tolerate this PO. Patient tolerated meds well. Would like ot be discharged. He was given strict return precautions. He will call his PCP on Tuesday, I would like for him to be reassessed at that time. Will prescribe Phenergan in the event he has recurrence of his nausea. He has declined antiemetics while here. He will continue to take antibiotics as prescribed. All of his questions and concerns were addressed, he is in agreement with this plan. HPI <Isabel Dodson - Last Filed: 05/15/20 08:02> General Mode of arrival: ambulatory . Date/Time Provider Initiated Documentation: 05/14/20 13:52 . Limitations to Documentation: no limitations . Information obtained by: patient . HPI Narrative: 44-year-old male presents to the ER with chief complaint of lower abdominal pain which began on Tuesday. Associated with nausea and diarrhea, no vomiting. No history of abdominal surgeries. He was seen by his PCP yesterday and had labs drawn which showed a white blood cell count elevated slightly at 13. He has a past medical history of hypertension, obesity he is a smoker. Related Data Home Medications Medication Instructions Recorded Confirmed lisinopril 20 mg tablet 20 mg PO DAILY 09/25/19 10/05/19 lorazepam 0.5 mg tablet 0.5 mg PO QHS PRN 09/25/19 10/05/19 omeprazole 20 mg capsule,delayed 20 mg PO DAILY PRN 09/25/19 10/05/19 release metoprolol succinate 25 mg PO DAILY #30 tab 10/05/19 ciprofloxacin HCl 500 mg PO BID 7 Days #14 tab 05/14/20 metronidazole 500 mg PO TID 10 Days #30 tab 05/14/20 promethazine 25 mg PO TID PRN #10 tab 05/14/20 Previous Rx's Medication Instructions Recorded metoprolol succinate 25 mg PO DAILY #30 tab 10/05/19 ciprofloxacin HCl 500 mg PO BID 7 Days #14 tab 05/14/20 metronidazole 500 mg PO TID 10 Days #30 tab 05/14/20 promethazine 25 mg PO TID PRN #10 tab 05/14/20 Allergies Allergy/AdvReac Type Severity Reaction Status Date / Time Penicillins Allergy Unknown Unverified 05/14/20 14:10 General Stated Complaint: Abd Prob CANDE: 3 Review of Systems <Isabel Dodson - Last Filed: 05/15/20 08:02> Narrative: Constitutional: Negative for weight loss, alert and oriented, well groomed, normal body habitus, appears comfortable. HEENT: Denies trauma, headaches, blurry vision, nasal discharge, sore throat, trouble swallowing. Chest: Denies chest pain, palpitations, irregular rhythm, hypertension. Respiratory: Denies Shortness of breath, cough, hemoptysis. GI: Denies vomiting, constipation. Positive abdominal pain positive nausea. Positive diarrhea. : Denies dysuria, hematuria, flank pain, rectal bleeding. Neuro: Denies dizziness, blurry vision, weakness, syncope, headache or facial numbness. Hematologic: Denies easy bruising, intolerance to heat or cold, hair loss. PFSH <Isabel Dodson - Last Filed: 05/15/20 08:02> Medical History (Updated 05/14/20 @ 18:21 by ADEEL Padilla) Erectile dysfunction Fatigue Fatty (change of) liver, not elsewhere classified Foot pain, left Gout History of cigarette smoking Hypertension Obesity Social History Smoking/Tobacco Use Status: Never Smoking risk assessment performed?: Yes Alcohol Intake: current Alcohol Intake frequency: 0-2 drinks per day Alcohol type: beer, wine and hard liquor Drug use: Never Substance use type: does not use Do you feel safe at home: Yes Do you feel safe in your relationship?: Yes Exam <Isabel Ivory - Last Filed: 05/15/20 08:02> Narrative Exam Narrative: Constitutional: Alert and oriented x3. Appears stated age. Normal body habitus. Head: Normocephalic, no trauma. Eyes: Pupils PERRLA, Red reflex noted, EOM's intact. Eyelids symmetrical without lesions, discharge, or swelling. ENT: Bilateral TM's WNL, External ear normal to inspection, no mastoid TTP, swelling, or erythema, Nasal turbinates WNL, no nasal discharge. Normal dentition, Posterior pharynx WNL, no exudate. Chest: RRR, Normal S1, S2, distal pulses intact. Resp: Lungs clear to auscultation bilaterally, no wheezes, rales, or rhonchi. Abdomen: Soft, nondistended, tender to palpation right and left lower quadrants and epigastrium. Musculoskeletal: Normal gait, 5/5 strength to all four extremities. Skin: No suspicious rashes or lesions. Capillary refill less than 2 sec. Neurologic: Cranial nerves II-XII intact. Alert and oriented x 3. DTR's intact. Hematologic/Lymphatic: No ecchymosis, no lymphadenopathy. Course <Isabel Dodson - Last Filed: 05/15/20 08:02> Vital Signs Vital signs: Vital Signs Temperature 37.2 C 05/14/20 14:04 Pulse 104 H 05/14/20 14:04 Respiratory Rate 18 05/14/20 14:04 Blood Pressure 125/75 05/14/20 14:04 Pulse Oximetry 96 05/14/20 14:04 Temperature 37.2 C 05/14/20 14:04 Temperature Source Oral 05/14/20 14:04 Pulse 104 H 05/14/20 14:04 Respiratory Rate 18 05/14/20 14:04 Respiratory Effort Non-Labored 05/14/20 14:08 Blood Pressure 125/75 05/14/20 14:04 Blood Pressure Position Supine 05/14/20 14:04 Pulse Oximetry 96 05/14/20 14:04 Oxygen Delivery Method Room Air 05/14/20 14:04 Oxygen Flow Rate 0 05/14/20 14:04 Pain Level 7 05/14/20 14:08 Sign Out <Isabel Dodson - Last Filed: 05/15/20 08:02> Sign Out Data: Sign Out Comment: Pending CT abd/pelvis Last updated by Isabel Dodson at 05/14/20 15:39
[2020-05-14 14:51] LABS: Abs Immature Grans 0.06 10^3/uL (0.0-0.06); Absolute Basophil Count 0.05 10^3/uL (0.0-0.2); Absolute Monocyte Count 1.41 10^3/uL (0.1-0.8); Basophils % 0.3; HCT 46.4 % (40.0-50.0); HGB 15.8 g/dL (13.5-17.5); Immature Grans % 0.4; Lymphocytes % 7.7; MCH 30.8 pg (27.0-33.0); MCHC 34.1 % (32.0-36.0); MCV 90.4 fL (80-95); Monocytes % 8.7; Neutrophils % 82.9; Nucleated RBC 0 %; Platelet Count 220 10^3/uL (130-400); RBC 5.13 10^6/uL (4.36-5.78); RDW 12.4 % (11.8-14.1); RDW-SD 41.1 fL; WBC 16.18 10^3/uL (4.4-10.8)
[2020-05-14 14:52] LABS: Absolute Lymphocyte Count 1.25 10^3/uL (1.2-3.4); Absolute Neutrophil Count 13.41 10^3/uL (1.2-6.7)
[2020-05-14 15:14] LABS: ALT 55 U/L (16-63); AST 13 U/L (15-37); Albumin 3.6 g/dL (3.4-5.0); Alkaline Phosphatase 72 U/L (46-116); Anion Gap 8.9 mmol/L (3-11); BUN 12 mg/dL (7-18); Bilirubin, Total 1.3 mg/dL (0.2-1.0); CO2 25.1 mmol/L (21.0-32.0); CREATININE 1.16 mg/dL (0.70-1.30); Calcium 8.4 mg/dL (8.5-10.1); Chloride 98 mmol/L (98-107); Glucose 136 mg/dL (74-106); Potassium 4.1 mmol/L (3.5-5.1); Sodium 132 mmol/L (136-145); Total Protein 7.9 g/dL (6.4-8.2)
[2020-05-14] MEDS: Omnipaque 350 MG/ML 100 ML BTL IJ (16:04)
[2020-05-14] MEDS: Normal Saline - Diluent 50 ML VIAL IV (16:05)
--- NOTE | 2020-05-14 16:27 | DI.VRAD_ITS ---
PROCEDURE INFORMATION: Exam: CT Abdomen And Pelvis With Contrast Exam date and time: 05/14/2020 3:56 PM Age: 44 years old Clinical indication: Abdominal pain TECHNIQUE: Imaging protocol: Computed tomography of the abdomen and pelvis with intravenous contrast. Contrast material: OMNIPAQUE 350; Contrast volume: 100 ml; Contrast route: INTRAVENOUS (IV); COMPARISON: No relevant prior studies available. FINDINGS: Lungs: Minimal posterior bilateral lower lobe dependent atelectasis. The visualized lung lehman are otherwise clear. Liver: Generalized hepatic steatosis. Gallbladder and bile ducts: Normal. No calcified stones. No ductal dilation. Pancreas: Normal. No ductal dilation. Spleen: Normal. No splenomegaly. Adrenal glands: Normal. No mass. Kidneys and ureters: Normal. No hydronephrosis. Stomach and bowel: Diffuse sigmoid mesenteric fat stranding with sigmoid colon wall thickening and multiple diverticula consistent with acute diverticulitis. No evidence for free air to suggest diverticular perforation. No steven diverticular abscess. Appendix: Normal appendix. No secondary signs of appendicitis. Intraperitoneal space: See Stomach and bowel finding. Vasculature: Unremarkable. No abdominal aortic aneurysm. Lymph nodes: Unremarkable. No enlarged lymph nodes. Urinary bladder: Left superolateral urinary bladder wall thickening due to serosal inflammation from the diverticulitis but no colovesicular fistula at this time. Reproductive: Unremarkable as visualized. Bones/joints: Unremarkable. No acute fracture. Soft tissues: Unremarkable. IMPRESSION: 1. Acute uncomplicated diverticulitis. Adjacent superolateral left urinary bladder wall thickening but no communication to suggest colovesicular fistula at this time. 2. Mild generalized hepatic steatosis. Dictated and Authenticated by: Elvia Inman MD. Ordering:DION Hall MD
[2020-05-14] MEDS: Normal Saline 1,000 ML 1000 ML IV (16:30)
[2020-05-14 17:02] LABS: Bilirubin Negative (Negative); Blood Trace-intact (Negative); Clarity Clear (Clear); Glucose Negative (Negative); Ketones Negative (Negative); Leukocyte Esterase Negative (Negative); Nitrite Negative (Negative); Specific Gravity 1.015 (1.005-1.025); pH 6.5 (5-8)
[2020-05-14 17:37] LABS: Bacteria Negative HPF (Negative); C & S Indicated? No; Casts Negative LPF (Negative); Crystals Negative HPF (Negative); Epithelial Cells Negative HPF (Negative); Mucus Negative (Negative); Other Cells Few Renal (Negative); RBC 0-2 HPF (0-2); WBC 0-2 HPF (0-5)
[2020-05-14] MEDS: Ciprofloxacin 500 MG TAB PO (17:42)
[2020-05-14] MEDS: metroNIDAZOLE 500 MG TAB PO (17:42)
[2020-05-14 18:08] VITALS: BP 143/82; PULSE 97; TEMP 37.1; O2SAT 97
== END 2020-05-14 18:37 | disposition home or self-care (01) ==
PROVIDERS: Registered Nurse Emergency; Emergency Provider Physician Assistant; PCP Internal Medicine
DX: K57.32 Diverticulitis of large intestine without perforation or abscess without bleeding (principal); R11.0 Nausea; R19.7 Diarrhea, unspecified; I10 Essential (primary) hypertension
CPT/HCPCS: 36415; 80053; 96361; 99285; 74177; 81003; 81015; 83735; 85025; 99284; J3490

== ENCOUNTER 2020-06-17 17:04 | Emergency (ER) | payer BC, SELFPAY ==
[2020-06-17 17:07] VITALS: BP 159/91; PULSE 76; RESP 16; TEMP 36.2; O2SAT 98
--- NOTE | 2020-06-17 18:27 | ED.GENADUL_ITS ---
Discharge Plan Disposition Patient Disposition: HOME Condition: Good Discharge Details Clinical Impression: Rectal bleeding Primary Care Provider: Lashon Waldron ED Provider: Peace Cárdenas Home Meds and New Rx's Prescriptions: Continued lorazepam 0.5 mg tablet 0.5 mg PO QHS PRNRF: 0 lisinopril 20 mg tablet 20 mg PO DAILY RF: 0 omeprazole 20 mg capsule,delayed release(DR/EC) 20 mg PO DAILY PRNRF: 0 metoprolol succinate 25 mg tablet extended release 24 hr 25 mg PO DAILY Qty: 30 RF: 0 promethazine 25 mg tablet 25 mg PO TID PRN (Reason: nausea and vomiting) Qty: 10 RF: 0 atorvastatin 20 mg tablet 20 mg PO DAILY RF: 0 Discharge Instructions Instructions: Rectal Bleeding (ED) Additional Instructions: As we discussed, please keep your stool soft. Encourage water intake. Care management will contact you with primary care. I would like for you to follow up with general surgery regarding your rectal bleeding. Please call tomorrow to schedule appointment, number listed below. If you develop fevers/chills, abdominal pain, weakness, lightheadedness or other new/worsening symptoms please seek care urgently once again. Referrals: Shanelle Roblero DO [OSTEOPATHIC DOCTOR] - Discharge Data Discharge Date/Time-TO BE ENTERED AT DEPARTURE: 06/17/20 19:35 Medical Decision Making Patient is a pleasant 44-year-old gentleman presenting today with bright red blood per rectum. He had 2 bloody stools today. He was able to show me pictures of these and it does appear to be some blood intermixed with the stool as well as some blood loose in the toilet bowl. Denies appears or chills. No abdominal pain on history or on exam. Appears nontoxic. No evidence to suggest bleeding elsewhere. He has not had history of this historically. No blood in his urine. He does report that he ate beets the other day and initially thought the change in the color was associated with this however, the photo is suggestive of blood and he states that it has increased throughout the day. Only 2 bloody bowel movements today and no blood from rectum elsewise. His rectal exam was nondiagnostic he does not able to get a good stool sample. Based on the amount of blood that was shown in the photo, I do feel that baseline labs would be appropriate, in particular evaluate his H&H. Patient appears otherwise stable and is hemodynamically stable at this time and I feel that he needs emergent imaging. Based on his history, this could be a diverticular bleed which I did discuss with the patient. I did not appreciate any hemorrhoids on exam. Patient requesting discharge prior to the labs returning. He reports that he is continuing to feel well. No bloody stools while here. Plan to refer patient to general surgery. I did advise that he may benefit from a colonoscopy. Patient reports that he had a colonoscopy as a child and had polyps at that point. This further increases my concern for the need for potential colonoscopy. Patient also would like to transition his primary care provider to this area, I have asked her care management team to read this. Strict return precautions were discussed. Plan to contact patient with any abnormalities in his labs. All questions and concerns were addressed he is in agreement this plan. He will encourage water intake and keep his stools soft. The patient department care, labs reviewed. Stable H&H. BUN slightly elevated 21 but otherwise no significant abnormality. HPI General Mode of arrival: ambulatory . Date/Time Provider Initiated Documentation: 06/17/20 17:06 . Limitations to Documentation: no limitations . Information obtained by: patient and RN notes reviewed . HPI Narrative: Patient pleasant 44-year-old gentleman presenting today with chief complaint of bright red blood per rectum. States that he had some amount of blood in his stool this morning. Subsequently had another bloody stool this afternoon during which time he noted a large quantity of blood. He denies feeling lightheaded or dizzy. He has not had this previously. He denies any rectal pain. No rectal trauma. Has not noted bleeding elsewhere. No fevers or chills. Denies any abdominal pain. Patient does have a history of diverticulitis but does not have any pain to suggest diverticulitis at this time. Related Data Home Medications Medication Instructions Recorded Confirmed lisinopril 20 mg tablet 20 mg PO DAILY 09/25/19 06/17/20 lorazepam 0.5 mg tablet 0.5 mg PO QHS PRN 09/25/19 06/17/20 omeprazole 20 mg capsule,delayed 20 mg PO DAILY PRN 09/25/19 06/17/20 release metoprolol succinate 25 mg PO DAILY #30 tab 10/05/19 06/17/20 promethazine 25 mg PO TID PRN #10 tab 05/14/20 atorvastatin 20 mg PO DAILY 06/17/20 06/17/20 Previous Rx's Medication Instructions Recorded metoprolol succinate 25 mg PO DAILY #30 tab 10/05/19 promethazine 25 mg PO TID PRN #10 tab 05/14/20 Allergies Allergy/AdvReac Type Severity Reaction Status Date / Time Penicillins Allergy Unknown Unverified 06/17/20 19:26 General Stated Complaint: GI Bleed CANDE: 3 Review of Systems Constitutional Constitutional: Reports as per HPI, Denies chills, Denies fatigue, Denies fever(s) and Denies headache(s) ENT Ears, Nose, Mouth, and Throat: Denies headache(s) Cardiovascular Cardiovascular: Reports as per HPI, Denies chest pain and Denies dyspnea Respiratory Respiratory: Reports as per HPI, Denies cough and Denies dyspnea Gastrointestinal Gastrointestinal: Reports as per HPI Genitourinary Genitourinary: Denies system reviewed and no additional complaints, except as documented (patient denies any change in urinary habits) Musculoskeletal Musculoskeletal: Reports as per HPI and Denies back pain Integumentary/Breasts Skin/Breast: Reports as per HPI and Denies rash Neurologic Neurologic: Reports as per HPI and Denies headache(s) Endocrine Endocrine: Denies fatigue [facility] Medical History (Updated 06/17/20 @ 19:32 by ADEEL Padilla) Erectile dysfunction Fatigue Fatty (change of) liver, not elsewhere classified Foot pain, left Gout History of cigarette smoking Hypertension Obesity Social History Smoking/Tobacco Use Status: Never Smoking risk assessment performed?: Yes Alcohol Intake: current Alcohol Intake frequency: 0-2 drinks per day Alcohol type: beer, wine and hard liquor Drug use: Never Substance use type: does not use Do you feel safe at home: Yes Do you feel safe in your relationship?: Yes Exam Const General: cooperative, healthy appearing, comfortable, no acute distress and well developed Nutritional Appearance: well nourished and overweight Orientation: alert and awake HENMT Head: normal to inspection Mouth: moist mucous membranes Resp Effort & Inspection: normal respiratory effort, able to speak in complete sentences and no respiratory distress Auscultation: clear to auscultation bilaterally, no rales, no rhonchi and no wheezes Cardio Rate: regular rate Rhythm: regular rhythm Heart Sounds: S1 normal and S2 normal GI Inspection: normal to inspection and non-distended Palpation: soft, no hepatosplenomegaly, not firm, no guarding, not rigid and nontender Percussion: normal to percussion Auscultation: normal bowel sounds Rectal Exam: visual inspection normal, normal sphincter tone, prostate normal, No fecal impaction, No heme positive stool (Poor sample was obtained on rectal exam) and No hemorrhoids Back/Spine/Pelvis Back: no CVA tenderness Skin General skin exam: no rashes or lesions noted Trauma: no lacerations or abrasions Neuro General: patient alert and patient awake Cognition: normal cognition Speech: speech normal Gait: normal gait Psych Appearance: grossly normal and well kempt Mental Status: mental status grossly normal Speech and Movement: speech and movement normal Course Vital Signs Vital signs: Vital Signs Temperature 36.2 C L 06/17/20 17:07 Pulse 76 06/17/20 17:07 Respiratory Rate 16 06/17/20 17:07 Blood Pressure 159/91 H 06/17/20 17:07 Pulse Oximetry 98 06/17/20 17:07 Temperature 36.2 C L 06/17/20 17:07 Temperature Source Skin 06/17/20 17:07 Pulse 76 06/17/20 17:07 Respiratory Rate 16 06/17/20 17:07 Respiratory Effort 06/17/20 17:10 Blood Pressure 159/91 H 06/17/20 17:07 Blood Pressure Position Sitting 06/17/20 17:07 Pulse Oximetry 98 06/17/20 17:07 Oxygen Delivery Method Room Air 06/17/20 17:07 Oxygen Flow Rate 0 06/17/20 17:07 Pain Level 0 06/17/20 17:07
[2020-06-17 19:23] LABS: Abs Immature Grans 0.02 10^3/uL (0.0-0.06); Absolute Basophil Count 0.09 10^3/uL (0.0-0.2); Absolute Eosinophil Count 0.18 10^3/uL (0.0-0.7); Absolute Lymphocyte Count 1.97 10^3/uL (1.2-3.4); Absolute Monocyte Count 0.75 10^3/uL (0.1-0.8); Absolute Neutrophil Count 6.27 10^3/uL (1.2-6.7); Eosinophils % 1.9; HCT 43.8 % (40.0-50.0); HGB 14.7 g/dL (13.5-17.5); Immature Grans % 0.2; Lymphocytes % 21.2; MCH 30.3 pg (27.0-33.0); MCHC 33.6 % (32.0-36.0); MCV 90.3 fL (80-95); MPV 10.1 fL (8.0-11.0); Monocytes % 8.1; Neutrophils % 67.6; Nucleated RBC 0 %; Platelet Count 236 10^3/uL (130-400); RBC 4.85 10^6/uL (4.36-5.78); RDW 12.3 % (11.8-14.1); WBC 9.28 10^3/uL (4.4-10.8)
[2020-06-17 19:32] LABS: Anion Gap 6.3 mmol/L (3-11); BUN 21 mg/dL (7-18); CO2 27.7 mmol/L (21.0-32.0); CREATININE 1.04 mg/dL (0.70-1.30); Chloride 103 mmol/L (98-107); Glucose 108 mg/dL (74-106); Potassium 4.5 mmol/L (3.5-5.1); Sodium 137 mmol/L (136-145)
--- NOTE | 2020-06-17 23:10 | NUR.NOTE ---
referral sent to general surgery for rectal bleeeding. referral sent to CM for PCP establishment and follow up. Elin NGUYEN. Nursing Note:
== END 2020-06-17 19:35 | disposition home or self-care (01) ==
PROVIDERS: Emergency Provider Physician Assistant; PCP Nurse Practitioner Family
DX: K62.5 Hemorrhage of anus and rectum (principal); I10 Essential (primary) hypertension
CPT/HCPCS: 36415; 80048; 99283; 85025

== ENCOUNTER 2020-08-09 21:40 | Emergency (ER) | payer BC, SELFPAY ==
[2020-08-09 22:02] VITALS: BP 129/74; PULSE 74; RESP 18; TEMP 36.4; O2SAT 99
--- NOTE | 2020-08-09 22:40 | W.ED.GENAD ---
Discharge Plan Disposition Patient Disposition: HOME Condition: Good Discharge Details Clinical Impression: Fracture of hand Primary Care Provider: Kelly Flores ED Provider: Asha Gonzalez Home Meds and New Rx's Prescriptions: No Action lorazepam 0.5 mg tablet 0.5 mg PO QHS PRNRF: 0 lisinopril 20 mg tablet 20 mg PO DAILY RF: 0 omeprazole 20 mg capsule,delayed release(DR/EC) 20 mg PO DAILY PRNRF: 0 metoprolol succinate 25 mg tablet extended release 24 hr 25 mg PO DAILY Qty: 30 RF: 0 promethazine 25 mg tablet 25 mg PO TID PRN (Reason: nausea and vomiting) Qty: 10 RF: 0 atorvastatin 20 mg tablet 20 mg PO DAILY RF: 0 Discharge Instructions Additional Instructions: Ice, elevate, ibuprofen 600 mg every 8 hours with food Tylenol for breakthrough pain, 650 mg Please return with strength or sensation changes, dramatic worsening pain, or with any new or progressing symptoms Follow-up with Ortho on Tuesday Keep splint dry Stand Alone Forms: Work Release Medical Decision Making Patient has a fourth and fifth metacarpal fracture on x-ray, the fourth metacarpal is at the proximal portion of the metacarpal and the fifth is distal adjacent to be MCP joint Per my interpretation and radiology pending of review Patient was placed in an ulnar gutter splint tolerated procedure without incident He remained neurovascularly intact pre and post procedure He is declined sling He is also declined opiate analgesia He will take ibuprofen and Tylenol for pain control His tetanus is updated I examined head injury thoroughly as there was an area of abrasion overlying the fracture, there is no clinical evidence that this is an open fracture at this time, He is given close outpatient follow-up Tetanus was updated While patient is under the influence of alcohol, he is clinically sober at time of my evaluation Differential Diagnosis Differential Diagnosis: Open fracture, fracture, abrasion, contusion Medical Records Medical records reviewed: Yes I reviewed the patient's medical records. HPI This 44-year-old male presents with injury to right hand after punching a wall. He states he has had several drink this evening and became frustrated at home and punched a wall just prior to arrival. He is unsure regarding his tetanus. He states he has an obvious deformity to his hand. He is unable to fully extend his hand secondary to discomfort. He denies any additional complaints time. General Date/Time Provider Initiated Documentation: 08/09/20 22:01. Related Data Home Medications Medication Instructions Recorded Confirmed lisinopril 20 mg tablet 20 mg PO DAILY 09/25/19 08/09/20 lorazepam 0.5 mg tablet 0.5 mg PO QHS PRN 09/25/19 08/09/20 omeprazole 20 mg capsule,delayed 20 mg PO DAILY PRN 09/25/19 08/09/20 release metoprolol succinate 25 mg PO DAILY #30 tab 10/05/19 08/09/20 promethazine 25 mg PO TID PRN #10 tab 05/14/20 08/09/20 atorvastatin 20 mg PO DAILY 06/17/20 08/09/20 Previous Rx's Medication Instructions Recorded metoprolol succinate 25 mg PO DAILY #30 tab 10/05/19 promethazine 25 mg PO TID PRN #10 tab 05/14/20 Allergies Allergy/AdvReac Type Severity Reaction Status Date / Time Penicillins Allergy Unknown Unsure Unverified 08/09/20 22:05 happened as child General Stated Complaint: Orthopedic CANDE: 4 Review of Systems Narrative: Review of systems negative x3 aside from where indicated in HPI, specifically no sensation change, history of coagulopathy [facility] Medical History (Updated 08/09/20 @ 23:10 by ADEEL Schulte) Erectile dysfunction Fatigue Fatty (change of) liver, not elsewhere classified Foot pain, left Gout History of cigarette smoking Hypertension Obesity Rectal bleeding Social History Smoking/Tobacco Use Status: Never Smoking risk assessment performed?: Yes Alcohol Intake: current Alcohol Intake frequency: 0-2 drinks per day Alcohol type: beer, wine and hard liquor Drug use: Never Substance use type: does not use Do you feel safe at home: Yes Do you feel safe in your relationship?: Yes Exam Extrem Other: Right hand with deformity to the fourth and fifth digits, small abrasion noted over right fifth MCP, no evidence of open fracture clinically, superficial laceration after cleansing and thorough evaluation Brisk capillary refill distally, neurovascularly intact Decreased full extension of fourth and fifth digit secondary to obvious deformity, no tenderness with palpation over distal phalanx or wrist Course Vital Signs Vital signs: Vital Signs Temperature 36.4 C L 08/09/20 22:02 Pulse 74 08/09/20 22:02 Respiratory Rate 18 08/09/20 22:02 Blood Pressure 129/74 08/09/20 22:02 Pulse Oximetry 99 08/09/20 22:02 Temperature 36.4 C L 08/09/20 22:02 Temperature Source Temporal Artery Scan 08/09/20 22:02 Pulse 74 08/09/20 22:02 Respiratory Rate 18 08/09/20 22:02 Respiratory Effort 08/09/20 22:05 Blood Pressure 129/74 08/09/20 22:02 Blood Pressure Position Supine 08/09/20 22:02 Pulse Oximetry 99 08/09/20 22:02 Oxygen Delivery Method Room Air 08/09/20 22:02 Oxygen Flow Rate 0 08/09/20 22:02 Pain Level 8 08/09/20 22:02 Procedures Orthopedic Splinting/Casting Injury #1: Side: right Upper Extremity Immobilizer: ulnar gutter Additional Comments: Remains neurovascularly intact pre and post procedure
--- NOTE | 2020-08-09 22:47 | DI.RAD_ITS ---
EXAM: XR HAND RT COMPLETE CLINICAL HISTORY: deformity, punched wall. TECHNIQUE: 2D digital imaging was performed. COMPARISON: There is an angulated fracture at the neck of the 5th metacarpal. There is also a fracture of the ba se of the 4th metacarpal. Some air is seen in the tissues adjacent to the medic carpophalangeal join t of the 5th finger. There is no radiopaque foreign body. FINDINGS: IMPRESSION: DATA REPOSITORY: RADIATION DOSE DELIVERED:
--- NOTE | 2020-08-09 23:01 | DI.VRAD_ITS ---
PROCEDURE INFORMATION: Exam: XR Right Hand Exam date and time: 08/09/2020 10:47 PM Age: 44 years old Clinical indication: Injury or trauma; Puncture; Hand; Right; Patient HX: Punched wall, deformity 5th meta caprpal. TECHNIQUE: Imaging protocol: XR Right hand. Views: 3 or more views. COMPARISON: No relevant prior studies available. FINDINGS: Bones/joints: There is a displaced, angulated transverse fracture through distal shaft of the 5th metacarpal and a comminuted, minimally displaced fracture base of 4th metacarpal. No subluxation. Soft tissues: Soft tissue swelling about the fractures. IMPRESSION: Fractures of 4th and 5th metacarpals. Dictated and Authenticated by: Km Maldonado MD. Ordering:VERONICA Barry MD
== END 2020-08-09 23:35 | disposition home or self-care (01) ==
PROVIDERS: Emergency Provider Physician Assistant; PCP Nurse Practitioner Family
DX: S62.396A Other fracture of fifth metacarpal bone, right hand, initial encounter for closed fracture (principal); S62.394A Other fracture of fourth metacarpal bone, right hand, initial encounter for closed fracture; W22.09XA Striking against other stationary object, initial encounter; I10 Essential (primary) hypertension
CPT/HCPCS: 29125; 90471; 99284; 73130; 99283

== ENCOUNTER 2020-08-13 12:04 | Day surgery (SDC) | payer BC, SELFPAY ==
--- NOTE | 2020-08-13 08:10 | W.PM.DSUDISC ---
Documented by User: Shanelle Montilla 08/13/20 08:13 Discharge Plan Disposition Patient Disposition: HOME Condition: Good Discharge Details Reason For Visit: Right fourth and fifth metacarpal fractures Attending Provider: Juan F Brady Primary Care Provider: Kelly Flores Home Meds and New Rx's Prescriptions: New hydrocodone-acetaminophen 5-325 mg tablet 1 tab PO Q6H PRN (Reason: pain) Qty: 10 RF: 0 ibuprofen 600 mg tablet 600 mg PO TID PRN (Reason: pain) Qty: 30 RF: 0 acetaminophen 500 mg capsule 1,000 mg PO Q8H PRN PRNQty: 90 RF: 0 Continued lorazepam 0.5 mg tablet 0.5 mg PO QHS PRNRF: 0 lisinopril 20 mg tablet 20 mg PO DAILY RF: 0 omeprazole 20 mg capsule,delayed release(DR/EC) 20 mg PO DAILY PRNRF: 0 metoprolol succinate 25 mg tablet extended release 24 hr 25 mg PO DAILY Qty: 30 RF: 0 promethazine 25 mg tablet 25 mg PO TID PRN (Reason: nausea and vomiting) Qty: 10 RF: 0 atorvastatin 20 mg tablet 20 mg PO DAILY RF: 0 Discharge Instructions Additional Instructions: Hand Fracture Fixation Discharge Instructions Activity: You should keep the hand/wrist elevated as much as possible for the first few days. You may use the other fingers as tolerated but avoid trying to do too much too soon. You may perform light activities with the splint in place. Dressing/Cast: Your splint should stay in place at all times. Do NOT get it wet. You may loosen the KEVIN wrap if you feel it is too tight and then re-wrap more loosely. Medications: - You should take Tylenol and Ibuprofen for baseline pain control. - You have been prescribed a stronger pain medication, Oxycodone, for breakthrough pain. - You may apply ice over the wrist, just double bag so it doesn't get wet. Follow-up: 10-14 days Referrals: Juan F Brady MD [ [facility] STAFF PHYSICIAN] - Equipment/Supplies: Sling Activity:: Elevate Remove Dressings/Wound Care:: Do Not Remove Shower/Bathe:: Cover Diet:: As Tolerated Discharge Orders Discharge Orders: Discharge Order (Routine); Ordered 08/13/20 Ordered By: Shanelle Montilla DS: Diagnosis Discharge Diagnosis (1) Closed fracture of fifth metacarpal bone of right hand: Status: Acute (2) Fracture of base of fourth metacarpal bone of right hand: Status: Acute Documented by User: ADEEL Portillo 08/13/20 10:32 Discharge Plan Disposition Patient Disposition: HOME Condition: Good Discharge Details Reason For Visit: Right fourth and fifth metacarpal fractures Attending Provider: Juan F Brday Primary Care Provider: Kelly Flores Home Meds and New Rx's Prescriptions: New hydrocodone-acetaminophen 5-325 mg tablet 1 tab PO Q6H PRN (Reason: pain) Qty: 10 RF: 0 ibuprofen 600 mg tablet 600 mg PO TID PRN (Reason: pain) Qty: 30 RF: 0 acetaminophen 500 mg capsule 1,000 mg PO Q8H PRN PRNQty: 90 RF: 0 Continued lorazepam 0.5 mg tablet 0.5 mg PO QHS PRNRF: 0 lisinopril 20 mg tablet 20 mg PO DAILY RF: 0 omeprazole 20 mg capsule,delayed release(DR/EC) 20 mg PO DAILY PRNRF: 0 metoprolol succinate 25 mg tablet extended release 24 hr 25 mg PO DAILY Qty: 30 RF: 0 promethazine 25 mg tablet 25 mg PO TID PRN (Reason: nausea and vomiting) Qty: 10 RF: 0 atorvastatin 20 mg tablet 20 mg PO DAILY RF: 0 Discharge Instructions Additional Instructions: Hand Fracture Fixation Discharge Instructions Activity: You should keep the hand/wrist elevated as much as possible for the first few days. You may use the other fingers as tolerated but avoid trying to do too much too soon. You may perform light activities with the splint in place. Dressing/Cast: Your splint should stay in place at all times. Do NOT get it wet. You may loosen the KEVIN wrap if you feel it is too tight and then re-wrap more loosely. Medications: - You should take Tylenol and Ibuprofen for baseline pain control. - You have been prescribed a stronger pain medication, Oxycodone, for breakthrough pain. - You may apply ice over the wrist, just double bag so it doesn't get wet. Follow-up: 10-14 days Referrals: Juan F Brady MD [ [facility] STAFF PHYSICIAN] - Equipment/Supplies: Sling Activity:: Elevate Remove Dressings/Wound Care:: Do Not Remove Shower/Bathe:: Cover Diet:: As Tolerated Discharge Orders Discharge Orders: Discharge Order (Routine); Ordered 08/13/20 Ordered By: Shanelle Montilla
--- NOTE | 2020-08-13 11:24 | HPE_ITS ---
Documented by User: ADEEL Portillo 08/13/20 11:33 Assessment and Plan Assessment and plan (1) Closed fracture of fifth metacarpal bone of right hand: Status: Acute Qualifiers: Encounter type: initial encounter Metacarpal location: neck Fracture alignment: displaced Qualified Code(s): S62.336A - Displaced fracture of neck of fifth metacarpal bone, right hand, initial encounter for closed fracture (2) Fracture of base of fourth metacarpal bone of right hand: Status: Acute Assessment and plan: Closed reduction percutaneous pinning versus open reduction internal fixation right fourth and fifth metacarpals. Details of surgery were discussed with patient as well as risks and pertinent anatomy. All questions were answered. Qualifiers: Encounter type: initial encounter Fracture type: closed Fracture alignment: displaced Qualified Code(s): S62.314A - Displaced fracture of base of fourth metacarpal bone, right hand, initial encounter for closed fracture History of Present Illness History of Present Illness Chief Complaint: Right hand injury Narrative: Mr. Longoria comes in today for a closed reduction and PERC pinning/possible open reduction of a fourth and fifth metacarpal fracture of his right hand that he sustained after punching a wall approximately 4 days ago. He had immediate pain and swelling upon punching the wall, so he went to the emergency room where he had x-rays which revealed fractures of both the fourth and fifth metacarpals with angulation apex dorsal and also displacement especially of the distal end of the 5th metacarpal volarly. He was placed in a splint, and was also instructed that he would need operative reduction and fixation of the metacarpals by Dr. Brady. Pertinent Surgical Information Patient has a history of diabetes that appears well controlled with the last hemoglobin A1c being 6.5 on 05/13/2020. Patient denies history of CVA, PA, angina, asthma, COPD, renal or liver disorders, hepatitis, bleeding disorders, immune or thyroid disorders. No complications from anesthesia. Review of Systems Constitutional Constitutional: Denies fever(s) ENT Ears, Nose, Mouth, and Throat: Denies dizziness and Denies sore throat Cardiovascular Cardiovascular: Denies chest pain, Denies palpitations and Denies dyspnea Respiratory Respiratory: Denies cough and Denies dyspnea Gastrointestinal Gastrointestinal: Denies abdominal pain, Denies melena, Denies hematochezia, Denies diarrhea, Denies nausea and Denies vomiting Genitourinary Genitourinary: Denies hematuria and Denies dysuria Neurologic Neurologic: Denies dizziness Endocrine Endocrine: Denies palpitations [facility] Medical History (Updated 08/13/20 @ 14:46 by Juan F Brady MD) Diabetes Erectile dysfunction Fatigue Fatty (change of) liver, not elsewhere classified Foot pain, left Gout History of cigarette smoking Hypertension Obesity Rectal bleeding Surgical History (Updated 08/13/20 @ 12:34 by Leti Kinney RN) Hx of arthroscopy of left knee Social History Smoking/Tobacco Use Status: Former Tobacco Use Quit Date: 06/20/04 Smoking risk assessment performed?: Yes Alcohol Intake: current Alcohol Intake frequency: 0-2 drinks per day Alcohol type: beer and hard liquor Drug use: Never Substance use type: does not use Do you feel safe at home: Yes Do you feel safe in your relationship?: Yes Meds Home Medications and Allergies Home Medications Medication Instructions Recorded Confirmed Type lisinopril 20 mg tablet 20 mg PO DAILY 09/25/19 08/13/20 History lorazepam 0.5 mg tablet 0.5 mg PO QHS PRN 09/25/19 08/13/20 History omeprazole 20 mg capsule,delayed 20 mg PO DAILY PRN 09/25/19 08/13/20 History release metoprolol succinate 25 mg PO DAILY #30 tab 10/05/19 08/13/20 Rx promethazine 25 mg PO TID PRN #10 tab 05/14/20 08/13/20 Rx atorvastatin 20 mg PO DAILY 06/17/20 08/13/20 History acetaminophen 1,000 mg PO Q8H PRN PRN #90 cap 08/13/20 Rx hydrocodone-acetaminophen 1 tab PO Q6H PRN #10 tab 08/13/20 Rx ibuprofen 600 mg PO TID PRN #30 tab 08/13/20 Rx Allergies Allergy/AdvReac Type Severity Reaction Status Date / Time Penicillins Allergy Unknown Unsure Unverified 08/13/20 12:34 happened as child Exam Const General: cooperative and no acute distress Orientation: alert and awake HENMT Head: normocephalic and atraumatic Eyes Conjunctivae: conjunctivae normal Sclera: sclerae normal Resp Effort & Inspection: normal respiratory effort Auscultation: clear to auscultation bilaterally and no wheezes Cardio Rate: regular rate Rhythm: regular rhythm Heart Sounds: S1 normal, S2 normal and no murmurs GI Palpation: soft, no hepatosplenomegaly and nontender Auscultation: normal bowel sounds Documented by User: Juan F Brady MD 08/13/20 14:47 Date of service: 08/13/20 Time of Service: 14:45 Assessment and Plan Assessment and plan (1) Closed fracture of fifth metacarpal bone of right hand: Status: Acute Qualifiers: Encounter type: initial encounter Metacarpal location: neck Fracture alignment: displaced Qualified Code(s): S62.336A - Displaced fracture of neck of fifth metacarpal bone, right hand, initial encounter for closed fracture (2) Fracture of base of fourth metacarpal bone of right hand: Status: Acute Assessment and plan: Edgar is a 44-year-old who suffered a displaced fracture of the fifth metacarpal neck as well as a displaced fracture of the base of the fourth metacarpal. The alignment is not acceptable and therefore I recommended operative fixation. I discussed the technical details. I reviewed the risk of the procedure to include bleeding, infection, pain, stiffness, damage to nerves and vessels, damage to muscles and tendons, fracture displacement, malunion, nonunion, hardware irritation. All of his questions were answered. We will proceed with surgery today. He is NPO. His Covid test is negative. Qualifiers: Encounter type: initial encounter Fracture type: closed Fracture alignment: displaced Qualified Code(s): S62.314A - Displaced fracture of base of fourth metacarpal bone, right hand, initial encounter for closed fracture [facility] Medical History (Updated 08/13/20 @ 14:46 by Juan F Brady MD) Diabetes Erectile dysfunction Fatigue Fatty (change of) liver, not elsewhere classified Foot pain, left Gout History of cigarette smoking Hypertension Obesity Rectal bleeding Surgical History (Updated 08/13/20 @ 12:34 by Leti Kinney RN) Hx of arthroscopy of left knee Social History Smoking/Tobacco Use Status: Former Tobacco Use Quit Date: 06/20/04 Smoking risk assessment performed?: Yes Alcohol Intake: current Alcohol Intake frequency: 0-2 drinks per day Alcohol type: beer and hard liquor Drug use: Never Substance use type: does not use Do you feel safe at home: Yes Do you feel safe in your relationship?: Yes Meds Home Medications and Allergies Home Medications Medication Instructions Recorded Confirmed Type lisinopril 20 mg tablet 20 mg PO DAILY 09/25/19 08/13/20 History lorazepam 0.5 mg tablet 0.5 mg PO QHS PRN 09/25/19 08/13/20 History omeprazole 20 mg capsule,delayed 20 mg PO DAILY PRN 09/25/19 08/13/20 History release metoprolol succinate 25 mg PO DAILY #30 tab 10/05/19 08/13/20 Rx promethazine 25 mg PO TID PRN #10 tab 05/14/20 08/13/20 Rx atorvastatin 20 mg PO DAILY 06/17/20 08/13/20 History acetaminophen 1,000 mg PO Q8H PRN PRN #90 cap 08/13/20 Rx hydrocodone-acetaminophen 1 tab PO Q6H PRN #10 tab 08/13/20 Rx ibuprofen 600 mg PO TID PRN #30 tab 08/13/20 Rx Allergies Allergy/AdvReac Type Severity Reaction Status Date / Time Penicillins Allergy Unknown Unsure Unverified 08/13/20 12:34 happened as child
[2020-08-13 12:29] VITALS: BP 136/77; PULSE 58; RESP 16; TEMP 36.5; O2SAT 100
[2020-08-13] MEDS: Lactated Ringers 1,000 ML 80 ML IV (12:46)
--- NOTE | 2020-08-13 14:30 | DI.RAD_ITS ---
EXAM: XR HAND RT LIMITED CLINICAL HISTORY: RIGHT 4TH AND 5TH METACARPAL FX. TECHNIQUE: 2D digital imaging was performed. COMPARISON: CR,XR XR HAND RT COMPLETE from 08/09/2020 FINDINGS: Phillips was provided during orthopedic pinning of the angulated fracture at the level of the neck of th e 5th metacarpal. Images reveal placement of K-wire across this fracture and also an almost perpendi cular K-wire across the bases of the 3rd, 4th, and 5th metacarpals. Total fluoroscopy time 2 minutes 34 seconds. IMPRESSION: DATA REPOSITORY: RADIATION DOSE DELIVERED:
[2020-08-13] MEDS: ceFAZolin 2 GM/50 ML BAG IVPB (15:01)
[2020-08-13] MEDS: Bupivacaine 0.25% Pres-Free 30 ML VIAL (15:37)
[2020-08-13] MEDS: Acetaminophen 325 MG TAB 650 MG PO (16:10)
[2020-08-13 16:21] VITALS: BP 118/61; PULSE 61; RESP 16; TEMP 36.3; O2SAT 95
--- NOTE | 2020-08-13 21:59 | ROE_ITS ---
Date of service: 08/13/20 Time of Service: 16:02 Operative Note Operative Note DATE OF PROCEDURE: 08/13/20 PRE-OP DIAGNOSIS: Right 4th Metacarpal Base and 5th Metacarpal Neck Fractures POST-OP DIAGNOSIS: same PROCEDURE: Closed reduction and pinning of right fourth and fifth metacarpal fractures SURGEON: Juan F Brady ANESTHESIA TYPE: General:No Airway Refer to Anesthesia Record ESTIMATED BLOOD LOSS: 0 COMPLICATIONS: None Patient was transported to: same day Patient's condition: stable Indications: Edgar is a 44-year-old who punched a wall 3 days ago. He suf fered 1/5 metacarpal neck fracture and fourth metacarpal base fracture. The fifth metacarpal fracture was notably displaced, translated anteriorly and angulated. Therefore, I recommended operative fixation with a closed reduction and pinning. I reviewed the technical details. I discussed the risk of the procedure to include loss of reduction, malunion, nonunion, hardware prominence or failure, need for repeat procedures, damage to nerves and vessels, damage to muscles and tendons. Findings: There is a notably displaced fracture of the fifth metacarpal neck. Using a closed means of reduction, Robb maneuver, I was able to reduce metacarpal neck fracture. However, there appeared to be some comminution about the metacarpal neck as well. This fracture fragment was pinned with a single K wire. An additional K wire was placed between the fifth, fourth, and third metacarpals to hold the fourth metacarpal base. Procedure Description: Edgar was greeted in the preoperative holding area. His identity was confirmed the correct side was identified and marked. The consent was read the patient and signed. History physical was updated. He segment to the operating room placed in supine position. A general anesthetic was administered. Prophylactic in a biotics in the form of cefazolin were given. A timeout was performed is a surgery. A closed reduction was then performed of the fifth finger with palpable success. His right hand was then placed into finger traps except for the little finger. The hand was prepped with ChloraPrep. Using fluoroscopy I made sure that we had adequate reduction. With the little finger flexed and placing a posterior directed force, I advanced the K wire through the metacarpal head and into the shaft of the fifth metacarpal. There was some difficulty in placing this that appeared to be some comminution over the lateral aspect of the metacarpal head. However, was able to advance his K wire through the fracture and into the metacarpal shaft. This was confirmed to be within the bone itself. There is still some minor angulation of the fracture fragment but the translation was improved and the angulation was approximate 20 degrees. Under live fluoroscopy the finger was moved and there was no displacement of the metacarpal neck fracture fragment. The fourth metacarpal base was still relatively well reduced. With a slight anteriorly directed force against the base of the fourth metacarpal advanced the K wire from the lateral border of the hand through the fifth, then the fourth, and into the third metacarpal. This allowed to stabilize the fourth metacarpal base. X-rays were confirmed to show that that K wire was in all 3 metacarpals. The pin sites were then injected with 0.25% bupivacaine. Candida ball was placed over the wire and cut. Xeroform is placed against the skin. A boxer type splint was then placed after padding the K wires. At the end the case all counts were correct and he tolerated procedure well. He is take back to the same-day surgery in stable condition.
== END 2020-08-13 16:43 | disposition home or self-care (01) ==
LOC: SUR 12:04
PROVIDERS: PCP Nurse Practitioner Family; Visit Provider Student in an Organized Health Care Education/Training Program
PROC: (CPT 26727; principal; 2020-08-13 15:00)
DX: S62.336A Displaced fracture of neck of fifth metacarpal bone, right hand, initial encounter for closed fracture (principal); S62.314A Displaced fracture of base of fourth metacarpal bone, right hand, initial encounter for closed fracture; E11.9 Type 2 diabetes mellitus without complications; W22.01XA Walked into wall, initial encounter; I10 Essential (primary) hypertension; M10.9 Gout, unspecified
CPT/HCPCS: 26608 ×2; 76000; NC; 73120; J0690; J1885; J2001; J2405

== ENCOUNTER 2020-08-21 09:41 | Outpatient (CLI) | payer BC, SELFPAY ==
--- NOTE | 2020-08-21 09:56 | DI.RAD_ITS ---
EXAM: XR HAND RT COMPLETE CLINICAL HISTORY: POST OP. TECHNIQUE: 2D digital imaging was performed. COMPARISON: CR,XR XR HAND RT COMPLETE from 08/09/2020 CR XR HAND RT LIMITED from 08/13/2020 FINDINGS: BONES: There are stable post operative changes present. There has been no significant change in alig nment of the fractures involving the 4th and 5th metacarpals given the slight differences in position ing compared to the prior examination. No new fracture or dislocation. JOINTS: The joint spaces are well maintained. No joint effusion is present. SOFT TISSUE: Normal. IMPRESSION: Stable postoperative changes. DATA REPOSITORY: RADIATION DOSE DELIVERED:
== END 2020-08-21 09:42 | disposition home or self-care (01) ==
LOC: DIORS 09:41
PROVIDERS: PCP Nurse Practitioner Family; Referring Provider Nurse Practitioner Family; Visit Provider Student in an Organized Health Care Education/Training Program
DX: S62.396A Other fracture of fifth metacarpal bone, right hand, initial encounter for closed fracture; S62.394A Other fracture of fourth metacarpal bone, right hand, initial encounter for closed fracture
CPT/HCPCS: 73130

== ENCOUNTER 2020-08-28 10:20 | Outpatient (CLI) | payer BC, SELFPAY ==
--- NOTE | 2020-08-28 08:32 | DI.RAD_ITS ---
EXAM: XR HAND RT COMPLETE CLINICAL HISTORY: f/u fracture. TECHNIQUE: 2D digital imaging was performed. COMPARISON: CR XR HAND RT COMPLETE from 08/21/2020 FINDINGS: BONES: There has been no change in alignment of the fractures involving the 4th and 5th metacarpals. The percutaneous pins are stable in alignment. No new fractures or dislocations are seen. No bony destructive lesion is seen. JOINTS: No dislocation present. SOFT TISSUE: Normal. IMPRESSION: Stable fractures of the 4th and 5th metacarpals. DATA REPOSITORY: RADIATION DOSE DELIVERED:
== END 2020-08-28 10:21 | disposition home or self-care (01) ==
LOC: DIORS 10:21
PROVIDERS: PCP Nurse Practitioner Family; Referring Provider Nurse Practitioner Family; Visit Provider Physician Assistant
DX: S62.394A Other fracture of fourth metacarpal bone, right hand, initial encounter for closed fracture (principal); S62.396A Other fracture of fifth metacarpal bone, right hand, initial encounter for closed fracture
CPT/HCPCS: 73130

== ENCOUNTER 2020-08-29 15:15 | Outpatient (REF) | payer BC, SELFPAY ==
[2020-08-29 15:26] LABS: ALT 77 U/L (16-63); AST 27 U/L (15-37); Alkaline Phosphatase 89 U/L (46-116); Anion Gap 11.7 mmol/L (3-11); BUN 15 mg/dL (7-18); Bilirubin, Total 0.6 mg/dL (0.2-1.0); CO2 25.3 mmol/L (21.0-32.0); CREATININE 0.9 mg/dL (0.70-1.30); Calcium 8.7 mg/dL (8.5-10.1); Chloride 103 mmol/L (98-107); Cholesterol 157 mg/dL (<200); Glucose 98 mg/dL (74-106); HDL Cholesterol 25 mg/dL (40-60); Potassium 4.5 mmol/L (3.5-5.1); Sodium 140 mmol/L (136-145); Total Protein 7.3 g/dL (6.4-8.2); Triglyceride 404 mg/dL (<150)
[2020-08-29 16:01] LABS: LDL CHOLESTEROL 77 mg/dL (<100)
== END 2020-08-29 15:16 | disposition home or self-care (01) ==
LOC: NCHCN 15:15
PROVIDERS: PCP Nurse Practitioner Family; Visit Provider Physician Assistant
DX: E11.9 Type 2 diabetes mellitus without complications (principal)
CPT/HCPCS: 80053; 80061; 83721; 83036

== ENCOUNTER 2020-09-11 08:56 | Outpatient (CLI) | payer BC, SELFPAY ==
--- NOTE | 2020-09-11 08:15 | DI.RAD_ITS ---
EXAM: XR HAND RT COMPLETE CLINICAL HISTORY: follow up. TECHNIQUE: 2D digital imaging was performed. COMPARISON: Prior x-rays 08/28/2020 FINDINGS: The wires have been removed from the 5th metacarpal. Fracture lines at the level of the head-neck of the 5th metacarpal are still evident. No further displacement. No new additional fractures evident . No obvious radiographic evidence of osteomyelitis. IMPRESSION: DATA REPOSITORY: RADIATION DOSE DELIVERED:
== END 2020-09-11 08:57 | disposition home or self-care (01) ==
LOC: DIORS 08:57
PROVIDERS: PCP Nurse Practitioner Family; Referring Provider Nurse Practitioner Family; Visit Provider Physician Assistant Surgical
DX: S62.336D Displaced fracture of neck of fifth metacarpal bone, right hand, subsequent encounter for fracture with routine healing (principal)
CPT/HCPCS: 73130

== ENCOUNTER 2020-09-25 13:31 | Outpatient (CLI) | payer BC, SELFPAY ==
--- NOTE | 2020-09-25 10:30 | DI.RAD_ITS ---
EXAM: XR HAND RT COMPLETE INDICATION: follow up. COMPARISON: CR XR HAND RT COMPLETE from 09/11/2020 TECHNIQUE: 2D digital imaging was performed. FINDINGS: There has been no change in the alignment of the 5th meta carpal fracture. Pin tracks are again note d through the 3rd through 5th meta carpals. Mild posterior soft tissue swelling remains present. No new. DATA REPOSITORY: RADIATION DOSE DELIVERED:
== END 2020-09-25 13:32 | disposition home or self-care (01) ==
LOC: DIORS 13:31
PROVIDERS: PCP Nurse Practitioner Family; Referring Provider Nurse Practitioner Family; Visit Provider Physician Assistant Surgical
DX: S62.314D Displaced fracture of base of fourth metacarpal bone, right hand, subsequent encounter for fracture with routine healing (principal); S62.336D Displaced fracture of neck of fifth metacarpal bone, right hand, subsequent encounter for fracture with routine healing; X58.XXXD Exposure to other specified factors, subsequent encounter
CPT/HCPCS: 73130

== ENCOUNTER 2020-10-23 13:23 | Outpatient (CLI) | payer BC, SELFPAY ==
--- NOTE | 2020-10-23 08:00 | DI.RAD_ITS ---
Exam(s) XR HAND RT COMPLETE EXAM: XR HAND RT COMPLETE CLINICAL HISTORY: follow up TECHNIQUE: COMPARISON: CR XR HAND RT COMPLETE from 09/25/2020 FINDINGS: Three views were obtained. Previously noted 4th and 5th metacarpal fractures are again noted and denis ear to be healing with no change in alignment in comparison with examination of September 25. Prior fix ation pin holes again noted. IMPRESSION: RADIATION DOSE DELIVERED: Total DLP
== END 2020-10-23 13:24 | disposition home or self-care (01) ==
LOC: DIORS 13:23
PROVIDERS: PCP Nurse Practitioner Family; Referring Provider Nurse Practitioner Family; Visit Provider Physician Assistant Surgical
DX: S62.314D Displaced fracture of base of fourth metacarpal bone, right hand, subsequent encounter for fracture with routine healing (principal); S62.336D Displaced fracture of neck of fifth metacarpal bone, right hand, subsequent encounter for fracture with routine healing
CPT/HCPCS: 73130

== ENCOUNTER 2021-10-28 07:52 | Outpatient (REF) | payer BC, SELFPAY ==
[2021-10-28 15:55] LABS: ALT 125 U/L (16-63); AST 46 U/L (15-37); Albumin 3.9 g/dL (3.4-5.0); Alkaline Phosphatase 80 U/L (46-116); Anion Gap 9.4 mmol/L (3-11); BUN 16 mg/dL (7-18); Bilirubin, Total 0.4 mg/dL (0.2-1.0); CO2 24.6 mmol/L (21.0-32.0); Calcium 8.3 mg/dL (8.5-10.1); Chloride 107 mmol/L (98-107); Cholesterol 162 mg/dL (<200); Glucose 138 mg/dL (74-106); HDL Cholesterol 27 mg/dL (40-60); Potassium 4.3 mmol/L (3.5-5.1); Sodium 141 mmol/L (136-145); Total Protein 7.1 g/dL (6.4-8.2); Triglyceride 460 mg/dL (<150)
[2021-10-28 16:30] LABS: LDL CHOLESTEROL 69 mg/dL (<100)
[2021-10-28 18:55] LABS: Hemoglobin A1C 6.1 % (<5.7)
== END 2021-10-28 07:53 | disposition home or self-care (01) ==
LOC: NCHCN 07:52
PROVIDERS: PCP Nurse Practitioner Family; Visit Provider Physician Assistant
DX: I10 Essential (primary) hypertension (principal); E11.9 Type 2 diabetes mellitus without complications; E78.5 Hyperlipidemia, unspecified
CPT/HCPCS: 80053; 80061; 83721; 83036

== ENCOUNTER 2022-01-02 22:08 | Emergency (ER) | payer BC, SELFPAY ==
[2022-01-02 22:39] VITALS: BP 131/93; PULSE 99; RESP 16; TEMP 37.2; O2SAT 96
--- NOTE | 2022-01-02 23:00 | DI.RAD_ITS ---
Exam(s) XR FOOT LT COMPLETE EXAM: XR FOOT LT COMPLETE CLINICAL HISTORY: trauma, lateral foot pain. TECHNIQUE: 2D digital imaging was performed. COMPARISON: No exams were available for comparison FINDINGS: 3 views No evidence of fracture nor diastasis of the Lisfranc joint. Mild degenerative changes noted in the great toe metatarsophalangeal joint. Accessory ossicles noted adjacent to the navicular tuberosity o n the medial aspect of the foot. Base of the 5th metatarsal is intact. Moderate size inferior calca julee spur is noted. IMPRESSION: DATA REPOSITORY: RADIATION DOSE DELIVERED:
--- NOTE | 2022-01-02 23:00 | DI.RAD_ITS ---
Exam(s) XR ANKLE LT COMPLETE EXAM: XR ANKLE LT COMPLETE CLINICAL HISTORY: trauma, lateral ankle pain. TECHNIQUE: 2D digital imaging was performed. COMPARISON: No exams were available for comparison FINDINGS: 3 views There is soft tissue swelling-mild. No fracture or widening of the mortise. Talar dome unremarkable . Moderate size inferior calcaneal spur noted. There is an in these 0 fight in the region of the Ac hilles tendon insertion on posterior aspect of the calcaneus. Also on the inferior aspect of the rita caneus. No osseous lesions. No radiopaque foreign body. IMPRESSION: DATA REPOSITORY: RADIATION DOSE DELIVERED:
--- NOTE | 2022-01-02 23:50 | ED.GENADUL_ITS ---
Discharge Plan Disposition Patient Disposition: HOME Condition: Stable Discharge Details Clinical Impression: Left ankle sprain Primary Care Provider: Isaías Larios ED Provider: Catrachito Pickard Home Meds and New Rx's Prescriptions: No Action lorazepam 0.5 mg tablet 0.5 mg PO QHS PRN lisinopril 20 mg tablet 20 mg PO DAILY omeprazole 20 mg capsule,delayed release(DR/EC) 20 - 40 mg PO DAILY PRN metoprolol succinate 25 mg tablet extended release 24 hr 25 mg PO DAILY Qty: 30 0RF promethazine 25 mg tablet 25 mg PO TID PRN (Reason: nausea and vomiting) Qty: 10 0RF ibuprofen 600 mg tablet 600 mg PO TID PRN (Reason: pain) Qty: 30 0RF acetaminophen 500 mg capsule 1,000 mg PO Q8H PRN PRNQty: 90 0RF atorvastatin 20 mg tablet 20 mg PO DAILY cetirizine [Zyrtec] 10 mg Tablet 10 mg PO PRN PRN Ozempic 0.25 mg or 0.5 mg(2 mg/1.5 mL) Pen Injector 0.5 mg SUBCUT DIRECTED Rx Instructions: weekly valsartan 320 mg tablet 1 tab PO DAILY Label Comments: TAKE 1 TABLET BY MOUTH EVERY DAY Discharge Instructions Instructions: Ankle Sprain (ED) Additional Instructions: We will contact you with the radiological imaging shows any abnormal findings that need a different treatment. It is recommended that you use crutches for the next 3 days and then slowly advance weightbearing activities as tolerated. If not improving over the next week please call the orthopedic office for arrangement of follow-up appointment. Referrals: [facility] [Provider Group] (If not improving contact the office for arrangement of follow-up appointment.) Discharge Data Discharge Date/Time-TO BE ENTERED AT DEPARTURE: 01/03/22 00:55 Medical Decision Making Patient presenting to the emergency department for chief complaint of left ankle injury. Approximately 9-hour prior to arrival he had jumped out of a pontoon boat when he landed hard and heard a pop. Patient denies any other injury or trauma. Physical exam shows tenderness to the lateral malleolus and lateral aspects of the foot including base of fifth metatarsal. Exam is otherwise unremarkable. We will plan on performing radiological imaging of the left foot and ankle and will give ibuprofen pending results My review of radiological imaging shows no acute fracture. Due to significant delay in onset radiology read discussed with patient discharge and that we will contact him with any abnormal results but at this time I feel that this is just a ankle sprain. Patient was agreeable to this and patient placed in a short walking boot and encouraged to use crutches for the next 3 days and then weightbearing activities as tolerated. After discussion of diagnosis and plan of care patient has no further needs, questions, or concerns and states clear understanding to return to the emergency department for any worsening symptoms. This documentation was generated using [employer] dictation system, please disregard any oddities of phrase or misspellings. HPI General Mode of arrival: ambulatory (with crutches) . Date/Time Provider Initiated Documentation: 01/02/22 22:17 . Limitations to Documentation: no limitations . Information obtained by: patient and RN notes reviewed . History of Present Illness 46 year old M presents to the emergency department with the chief complaint of left ankle injury, described as moderate, with intensity rated at 9. Quality is described as sharp, and is localized to the left and lower extremity. Patient proximal. Patient started experiencing this hour(s) (9) and it has been constant. Patient notes no other symptoms.. Patient did receive the following treatments prior to arrival, none Related Data Home Medications Medication Instructions Recorded Confirmed lisinopril 20 mg tablet 20 mg PO DAILY 09/25/19 01/02/22 lorazepam 0.5 mg tablet 0.5 mg PO QHS PRN 09/25/19 08/13/20 omeprazole 20 mg capsule,delayed 20 - 40 mg PO DAILY PRN 09/25/19 01/02/22 release metoprolol succinate 25 mg 25 mg PO DAILY #30 tabs 10/05/19 01/02/22 tablet,extended release 24 hr promethazine 25 mg tablet 25 mg PO TID PRN nausea and 05/14/20 08/13/20 vomiting #10 tabs atorvastatin 20 mg tablet 20 mg PO DAILY 06/17/20 01/02/22 acetaminophen 500 mg capsule 1,000 mg PO Q8H PRN PRN #90 caps 08/13/20 01/02/22 ibuprofen 600 mg tablet 600 mg PO TID PRN pain #30 tabs 08/13/20 01/02/22 cetirizine 10 mg tablet (Zyrtec) 10 mg PO PRN PRN 01/02/22 01/02/22 semaglutide 0.25 mg or 0.5 mg (2 0.5 mg subcut DIRECTED 01/02/22 01/02/22 mg/1.5 mL) subcutaneous pen injector (Ozempic) valsartan 320 mg tablet 1 tab PO DAILY 01/02/22 01/02/22 Previous Rx's Medication Instructions Recorded metoprolol succinate 25 mg 25 mg PO DAILY #30 tabs 10/05/19 tablet,extended release 24 hr promethazine 25 mg tablet 25 mg PO TID PRN nausea and 05/14/20 vomiting #10 tabs acetaminophen 500 mg capsule 1,000 mg PO Q8H PRN PRN #90 caps 08/13/20 ibuprofen 600 mg tablet 600 mg PO TID PRN pain #30 tabs 08/13/20 Allergies Allergy/AdvReac Type Severity Reaction Status Date / Time Penicillins Allergy Unknown Unsure Unverified 01/02/22 22:45 happened as child grass pollen AdvReac Mild Unverified 01/02/22 22:46 General Stated Complaint: Orthopedic CANDE: 4 Review of Systems Narrative: 8 systems reviewed and unremarkable except what is marked below. Musculoskeletal Musculoskeletal: Reports as per HPI, Denies back pain, Denies deformity, Reports arthralgias, Reports joint swelling, Reports limited range of motion and Reports radiating pain into limb Integumentary/Breasts Skin/Breast: Denies wounds PFSH All Active Problems (Updated 01/03/22 @ 00:15 by Catrachito Pickard NP) Left ankle sprain (Acute) Closed fracture of fifth metacarpal bone of right hand (Acute 08/09/20) S/P closed reduction percutaneous pinnin08/13/2020 Fracture of base of fourth metacarpal bone of right hand (Acute 08/09/20) S/P closed reduction percutaneous pinnin08/13/2020 History of cigarette smoking (Acute) Erectile dysfunction (Acute) Gout (Chronic) Hypertension (Chronic) Fatigue (Acute) Obesity (Chronic) Medical History Diabetes Dysphonia (12/16/14) Fatty (change of) liver, not elsewhere classified Foot pain, left Gastroesophageal reflux disease (10/21/14) Rectal bleeding Surgical History Hx of arthroscopy of left knee Social History Smoking/Tobacco Use Status: Former Tobacco Use Quit Date: 06/20/04 Smoking risk assessment performed?: Yes Alcohol Intake: current Alcohol Intake frequency: 0-2 drinks per day Alcohol type: beer and hard liquor Drug use: Never Substance use type: does not use Do you feel safe at home: Yes Do you feel safe in your relationship?: Yes Exam Const General: cooperative, no acute distress and not ill appearing Orientation: alert, awake and oriented x3 Resp Effort & Inspection: normal respiratory effort, able to speak in complete sentences and no respiratory distress Cardio Rate: regular rate Rhythm: regular rhythm Skin General skin exam: no rashes or lesions noted Neuro General: patient alert, patient awake, patient oriented x3, moves all extremities and no focal motor deficits Sensory Exam: no sensory deficits noted Extrem General: capillary refill normal and normal exam except as noted Right lower extremity: ankle Details: tenderness Location: of the lateral malleolus, swelling Details: laterally and abnormal ROM Details: pain with active ROM; no abrasions and no lacerations and foot Details: normal capillary refill, tenderness Location: of the lateral foot and of the base of the 5th metatarsal, toes with normal ROM, edema, vascular exam Details: dorsalis pedis pulse present, posterior tibial pulse present and normal capillary refill, tendon exam Details: active flexion normal and active extension normal and motor-sensory exam Details: two point discrimination normal and light-touch normal; no laceration and no ecchymosis Course Vital Signs Vital signs: Vital Signs Temperature 37.2 C 01/02/22 22:39 Pulse 99 H 01/02/22 22:39 Respiratory Rate 16 01/02/22 22:39 Blood Pressure 131/93 H 01/02/22 22:39 Pulse Oximetry 96 01/02/22 22:39 Temperature 37.2 C 01/02/22 22:39 Temperature Source Skin 01/02/22 22:39 Pulse 99 H 01/02/22 22:39 Respiratory Rate 16 01/02/22 22:39 Respiratory Effort 01/02/22 22:49 Blood Pressure 131/93 H 01/02/22 22:39 Blood Pressure Position Sitting 07/16/22 22:39 Pulse Oximetry 96 01/02/22 22:39 Oxygen Delivery Method Room Air 01/02/22 22:39 Oxygen Flow Rate 0 01/02/22 22:39 Pain Level 9 01/02/22 22:39 Comment 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
[2022-01-02] MEDS: Ibuprofen 800 MG TAB PO (23:57)
--- NOTE | 2022-01-03 00:37 | DI.VRAD_ITS ---
PROCEDURE INFORMATION: Exam: XR Left Ankle Exam date and time: 01/02/2022 11:49 PM Age: 46 years old Clinical indication: Injury or trauma; Fall; Blunt trauma; Ankle; Left TECHNIQUE: Imaging protocol: Radiologic exam of the Left ankle. Views: 3 or more views. COMPARISON: CR XR FOOT LT COMPLETE 01/02/2022 11:47 PM FINDINGS: Bones/joints: Noninflamed enthesophyte seen within the region of the Achilles tendon.There is a noninflamed plantar enthesophyte. Bone mineralization is age-appropriate. There is no evidence of fracture. No evidence of dislocation. The joint spaces are adequately preserved; no significant degenerative narrowing and no bony erosion seen. Soft tissues: No radiopaque foreign body present. There is soft tissue swelling present. IMPRESSION: 1. No acute osseous abnormality. 2. Soft tissue swelling only. Dictated and Authenticated by: Thomas Ospina MD. Ordering:VERONICA Winston MD
--- NOTE | 2022-01-03 00:37 | DI.VRAD_ITS ---
PROCEDURE INFORMATION: Exam: XR Left Foot Exam date and time: 01/02/2022 11:47 PM Age: 46 years old Clinical indication: Injury or trauma; Fall; Blunt trauma; Foot; Left TECHNIQUE: Imaging protocol: Radiologic exam of the Left foot. Views: 3 or more views. COMPARISON: No relevant prior studies available. FINDINGS: Bones/joints: Bone mineralization is age-appropriate. There is no evidence of fracture. No evidence of dislocation. Soft tissues: No radiopaque foreign body present. There is soft tissue swelling present. Mild degenerative changes at the 1st metatarsal-phalangeal joint. IMPRESSION: 1. No acute osseous abnormality. 2. Soft tissue swelling only. Dictated and Authenticated by: Thomas Ospina MD. Ordering:VERONICA Winston MD
== END 2022-01-03 00:55 | disposition home or self-care (01) ==
PROVIDERS: Emergency Provider Nurse Practitioner Family; PCP Physician Assistant
DX: S93.492A Sprain of other ligament of left ankle, initial encounter (principal); X50.0XXA Overexertion from strenuous movement or load, initial encounter
CPT/HCPCS: 29515; 99284; 73610; 73630; 99283

== ENCOUNTER 2022-04-23 15:34 | Outpatient (REF) | payer BC, SELFPAY ==
[2022-04-23 16:51] LABS: Hemoglobin A1C 6.1 % (<5.7)
[2022-04-23 17:01] LABS: ALT 102 U/L (16-63); AST 47 U/L (15-37); Albumin 3.8 g/dL (3.4-5.0); Alkaline Phosphatase 77 U/L (46-116); BUN 15 mg/dL (7-18); Bilirubin, Total 0.5 mg/dL (0.2-1.0); Calculated LDL 53 mg/dL (<100); Chloride 104 mmol/L (98-107); Cholesterol 137 mg/dL (<200); Estimated GFR 93.42 (mL/min/1.73m2); Glucose 117 mg/dL (74-106); HDL Cholesterol 37 mg/dL (40-60); Potassium 4.2 mmol/L (3.5-5.1); Sodium 139 mmol/L (136-145); Total Protein 7.6 g/dL (6.4-8.2); Triglyceride 235 mg/dL (<150)
[2022-04-23 18:11] LABS: Microalb ug/mg Crea 3.1 ug/mg Cr
[2022-04-29 14:04] LABS: Testosterone, Total 245 ng/dL (240-950)
== END 2022-04-23 15:35 | disposition home or self-care (01) ==
LOC: NCHCN 15:34
PROVIDERS: PCP Physician Assistant; Visit Provider Physician Assistant
DX: E11.9 Type 2 diabetes mellitus without complications (principal); R53.83 Other fatigue
CPT/HCPCS: 80053; 80061; 84403; 82043; 82570; 83036

== ENCOUNTER 2023-08-03 13:50 | Outpatient (REF) | payer BC, SELFPAY ==
[2023-08-03 16:52] LABS: Hemoglobin A1C 6.1 % (<5.7)
[2023-08-03 17:42] LABS: ALT 105 U/L (16-63); AST 50 U/L (15-37); Albumin 3.8 g/dL (3.4-5.0); Alkaline Phosphatase 70 U/L (46-116); Anion Gap 9.3 mmol/L (3-11); BUN 10 mg/dL (7-18); Bilirubin, Total 0.5 mg/dL (0.2-1.0); CO2 29.7 mmol/L (21.0-32.0); Calcium 8.9 mg/dL (8.5-10.1); Calculated LDL 79 mg/dL (<100); Chloride 103 mmol/L (98-107); Cholesterol 146 mg/dL (<200); Estimated GFR 92.84 (mL/min/1.73m2); Glucose 120 mg/dL (74-106); HDL Cholesterol 40 mg/dL (40-60); Potassium 4.1 mmol/L (3.5-5.1); Sodium 142 mmol/L (136-145); Total Protein 7.1 g/dL (6.4-8.2); Triglyceride 135 mg/dL (<150)
[2023-08-03 18:21] LABS: COMMENT (LAB VIEW ONLY) 195.85 mg/dL; Microalb ug/mg Crea 4.2 ug/mg Cr
[2023-08-04 19:54] LABS: Hepatitis C Ab w Rflx HCV PCR Negative (Negative)
== END 2023-08-03 13:51 | disposition home or self-care (01) ==
LOC: NCHCN 13:50
PROVIDERS: PCP Physician Assistant; Visit Provider Physician Assistant
DX: E11.9 Type 2 diabetes mellitus without complications (principal); Z11.59 Encounter for screening for other viral diseases
CPT/HCPCS: 80053; 80061; 86803; 82043; 82570; 83036

== ENCOUNTER 2023-09-09 09:00 | Day surgery (SDC) | payer BC, SELFPAY ==
--- NOTE | 2023-09-08 12:52 | HPE_ITS ---
[facility] All Active Problems Constipation by delayed colonic transit (Acute) Diverticula of colon (Acute) External hemorrhoids with complication (Acute) Steatosis of liver (Acute) Allergic rhinitis (Acute) Thrombosed external hemorrhoid (Acute) GREER (obstructive sleep apnea) (Chronic) Closed fracture of fifth metacarpal bone of right hand (Acute 08/09/20) S/P closed reduction percutaneous pinnin08/13/2020 Fracture of base of fourth metacarpal bone of right hand (Acute 08/09/20) S/P closed reduction percutaneous pinnin08/13/2020 History of cigarette smoking (Acute) Erectile dysfunction (Acute) Gout (Chronic) Hypertension (Chronic) Fatigue (Acute) Obesity (Chronic) Medical History Metabolic syndrome X Hyperlipidemia Tinea pedis Onychomycosis due to dermatophyte Dysphonia (12/16/14) Gastroesophageal reflux disease (10/21/14) Diabetes Rectal bleeding Foot pain, left Fatty (change of) liver, not elsewhere classified Surgical History Hx of arthroscopy of left knee Social History Smoking/Tobacco Use Status: Former Tobacco Use Quit Date: 06/20/04 Smoking risk assessment performed?: Yes Alcohol Intake: current Alcohol Intake frequency: 0-2 drinks per day Alcohol type: beer and hard liquor Drug use: Never Substance use type: does not use Housing: house Do you feel safe at home: Yes Do you feel safe in your relationship?: Yes Meds Allergies and Home Medications Allergies Allergy/AdvReac Type Severity Reaction Status Date / Time Penicillins Allergy Unknown Unsure Verified 09/07/23 16:03 happened as child grass pollen AdvReac Mild Other (See Verified 09/07/23 16:03 Comment) Home Medications Medication Instructions Recorded Confirmed Type lorazepam 0.5 mg tablet 0.5 mg PO QHS PRN 09/25/19 09/07/23 History atorvastatin 20 mg tablet 20 mg PO DAILY 06/17/20 09/07/23 History acetaminophen 500 mg capsule 1,000 mg (2 x 500 mg) PO Q8H PRN 08/13/20 09/07/23 Rx PRN #90 caps ibuprofen 600 mg tablet 600 mg PO TID PRN pain #30 tabs 08/13/20 09/07/23 Rx cetirizine 10 mg tablet (Zyrtec) 10 mg PO PRN PRN 01/02/22 09/07/23 History albuterol sulfate 90 mcg/actuation 2 puff inhalation Q6H PRN 07/11/23 09/07/23 History aerosol inhaler (ProAir HFA) modafinil 100 mg tablet 100 mg PO QAM PRN 07/11/23 09/07/23 History tirzepatide 10 mg/0.5 mL 10 mg subcut QWEEK 07/11/23 09/07/23 History subcutaneous pen injector (Narda) valsartan 320 1 tab PO DAILY 07/11/23 09/07/23 History mg-hydrochlorothiazide 12.5 mg tablet multivitamin 1 tab PO DAILY 07/26/23 09/07/23 History omeprazole 20 mg capsule,delayed 20 - 40 mg PO DAILY 07/26/23 09/07/23 History release polyethylene glycol 3350 17 238 g PO ONCE colonoscopy prep 07/26/23 09/07/23 Rx gram/dose oral powder #238 grams bisacodyl 5 mg tablet,delayed 5 mg PO ONCE colonscopy bowel prep 09/01/23 09/07/23 Rx release (Dulcolax (bisacodyl)) #4 tabs
--- NOTE | 2023-09-08 15:55 | HPE_ITS ---
Date of service: 09/09/23 Time of Service: 09:54 Assessment and Plan Assessment and plan (1) Hypertension: Status: Chronic (2) Obesity: Status: Chronic (3) Steatosis of liver: Status: Acute (4) Thrombosed external hemorrhoid: Status: Acute (5) External hemorrhoids with complication: Status: Acute (6) Diverticula of colon: Status: Acute (7) Constipation by delayed colonic transit: Status: Acute Assessment and plan: Plan: Colonoscopy w/ general & natural airway. Informed consent is obtained for the procedural (explained in simple layman's terms that?the pt and/or family could understand) explaining risks vs benefits and alternatives to the procedure and consequences if we do not do the procedure and need/rational for the procedure. Risks include but are not limited to: bleeding, infection, perforation of colon.? This would necessitate emergency surgery to repair the damage w/ possible ostomy; and other associated complications w/ the required surgery. ? Also complications of anesthesia including aspiration, [place]/CVA/, inability to complete the procedure. I discussed with the?patient would they could expect during the procedure, post procedure and recovery time and risks.? The patient understands that they need to have a ride home after the procedure.? Generally Colonoscopy does not require antibiotics prophylaxis, possible hemorrhoid banding. We discussed hemorrhoid surgery, what the patient could expect during the procedure, recovery time, and risks. would need to be off of work approximately 2 weeks, (and everyone is different- some need more or less time) and will need to be off of work/stay home so can do sitz bathes frequently to relieve the muscle spasms. The surgery can be very painful, and each person response/recovery time is different. The patient does need a pre-operative H&P to determine fitness for anesthesia (MAC). Risks include but are not limited to: bleeding/infection/pneumonia/blood clots/scarring- resulting in stricture, loss of control of bowels, the need for more surgery to correct any complications, residual hemorrhoids. I discussed with the patient the importance of preventing any more straining/constipation, as the hemorrhoids could reoccur. We reviewed a high fiber diet and patient was given information on this. (S)He should continue to get a colonoscopy every 10 years. (8) Erectile dysfunction: Status: Acute (9) Gout: Status: Chronic (10) GREER (obstructive sleep apnea): Status: Chronic (11) History of cigarette smoking: Status: Acute (12) Metabolic syndrome X: (13) Diabetes: History of Present Illness Narrative: Patient is here today for colonoscopy for CRC screening/chronic constipation.??? They completed a bowel prep with just a clear yellow residual effluent.? They not having any chest pain or shortness of breath, currently.? They are not experiencing any fever or chills.? They deny any productive cough or upper respiratory tract infection signs or symptoms.? He has issues with allergies and so has a mild chronic cough and congestion but no changes in this. They are not having abdominal pain, or nausea and vomiting.? They have not had any changes in medications, past medical history or past surgical history since previously be ing seen in the office. They have not had any accidents or have been in the ER since the clinic pre-operative evaluation. ??I reviewed the procedure with the patient today, including risks and benefits of the procedure, and what they could expect at home for recovery.? All questions are answered to the patient?s satisfaction today, and they are stable to proceed with the proposed procedure. Patient has not had lab work since 2019 RN: Pt reports hemorrhoid has improved, states has had issues in the past, due for first colonoscopy, reports paternal grandfather had colon cancer is his 70's. Pt seen at the request of PCP regarding colon cancer screening. Pt has never had colon cancer screening before.? They denies problems with constipation or diarrhea.? They deny any pain or difficulty with bowel movements, or rectal bleeding.? There is family history-grandparent in their 70s of CRC cancer.? Pt has not had any unexplained weight loss.? Their appetite is good.? ?They deny heart, lung, or kidney problems. They are not having heartburn or indigestion- well controlled on PPI. . They have not had any prior colo-rectal surgery.? The patient has not had a prior prostate sx or XRT. .? They deny any problems with anesthesia in the past. When he was a kid had blood in his stool nad had a loewr GI and possible a scope. The diagnosis was that he was from straining to move his bowels. Patient denies straining or constipation at this point Pt has had problems w/ thrombosesd hemorrhoids in the past. was using Prep H and tux pads. The hemorrhoid resolved on it's own. pt denies constipation and straining. Also has a hx of diverticulitis. We discussed the importance of straining to prevent further problems with hemorrhoids in the past. We discussed adding a fiber supplement Into his diet. We discussed hemorrhoids and the difference tween internal hemorrhoids and external hemorrhoids. Patient was given information on this as well. If amendable- he would like to have internal hemoorrhoid banded. We reviewed what he could expect during the procedure and postoperatively, postoperative care, and recovery time We will review the home cares for that period of time. We would use nonnarcotic methods to manage pain. Anesthesia: general (without airway) Previous surgical intolerances: No Previous surgical complications: No Pulmonary risk factors: Planned procedure: Yes Sleep apnea risks: No COPD/Asthma/Smoker: +GREER. does not use CPAP Can climb one flight of stairs (12-13 steps) in less than 30 seconds without stopping and without symptoms: Yes The surgery proposed for this patient is: low risk Active cardiac conditions: none Active risk factors: none ASA (acetylsalicylic acid): not used Beta blockers: not used Kidneys: no concerns DM: pre-DM no tia/mi fatty liver+ PSHX broken hand- no hardware knee scope as a teen anesthesia - no problems ? Review of Systems All systems reviewed & are unremarkable except as noted in HPI and below PFSH All Active Problems Constipation by delayed colonic transit (Acute) Diverticula of colon (Acute) External hemorrhoids with complication (Acute) Steatosis of liver (Acute) Allergic rhinitis (Acute) Thrombosed external hemorrhoid (Acute) GREER (obstructive sleep apnea) (Chronic) Closed fracture of fifth metacarpal bone of right hand (Acute 08/09/20) S/P closed reduction percutaneous pinnin08/13/2020 Fracture of base of fourth metacarpal bone of right hand (Acute 08/09/20) S/P closed reduction percutaneous pinnin08/13/2020 History of cigarette smoking (Acute) Erectile dysfunction (Acute) Gout (Chronic) Hypertension (Chronic) Fatigue (Acute) Obesity (Chronic) Medical History Metabolic syndrome X Hyperlipidemia Tinea pedis Onychomycosis due to dermatophyte Dysphonia (12/16/14) Gastroesophageal reflux disease (10/21/14) Diabetes Rectal bleeding Foot pain, left Fatty (change of) liver, not elsewhere classified Surgical History Hx of arthroscopy of left knee Social History Smoking/Tobacco Use Status: Former Tobacco Use Quit Date: 06/20/04 Smoking risk assessment performed?: Yes Alcohol Intake: current Alcohol Intake frequency: 0-2 drinks per day Alcohol type: beer and hard liquor Drug use: Never Substance use type: does not use Housing: house Do you feel safe at home: Yes Do you feel safe in your relationship?: Yes Meds Allergies and Home Medications Allergies Allergy/AdvReac Type Severity Reaction Status Date / Time Penicillins Allergy Unknown Unsure Verified 09/09/23 09:30 happened as child grass pollen AdvReac Mild Other (See Verified 09/09/23 09:30 Comment) Home Medications Medication Instructions Recorded Confirmed Type lorazepam 0.5 mg tablet 0.5 mg PO QHS PRN 09/25/19 09/09/23 History atorvastatin 20 mg tablet 20 mg PO DAILY 06/17/20 09/09/23 History acetaminophen 500 mg capsule 1,000 mg (2 x 500 mg) PO Q8H PRN 08/13/20 09/09/23 Rx PRN #90 caps ibuprofen 600 mg tablet 600 mg PO TID PRN pain #30 tabs 08/13/20 09/09/23 Rx cetirizine 10 mg tablet (Zyrtec) 10 mg PO PRN PRN 01/02/22 09/09/23 History albuterol sulfate 90 mcg/actuation 2 puff inhalation Q6H PRN 07/11/23 09/09/23 History aerosol inhaler (ProAir HFA) modafinil 100 mg tablet 100 mg PO QAM PRN 07/11/23 09/09/23 History tirzepatide 10 mg/0.5 mL 10 mg subcut QWEEK 07/11/23 09/09/23 History subcutaneous pen injector (Mounjaro) valsartan 320 1 tab PO DAILY 07/11/23 09/09/23 History mg-hydrochlorothiazide 12.5 mg tablet multivitamin 1 tab PO DAILY 07/26/23 09/09/23 History omeprazole 20 mg capsule,delayed 20 - 40 mg PO DAILY 07/26/23 09/09/23 History release Exam Narrative Exam Narrative: PHYSICAL EXAM GENERAL APPEARANCE: Alert, healthy appearance, oriented, x 3,? in no acute distress HYDRATION: Well hydrated HEAD, EYES, EARS, NECK, THROAT: Head is normocephalic, pupils equal, round, reactive to light and accommodation, ocular movement intact, sclera clear and no jaundice. ?Dentition intact. LUNGS: normal respiration/normal chest excursion. ?Clear to auscultation bilaterally. ?No wheeze. ?HEART: Regular rate and rhythm. no murmurs ABDOMEN: soft and non-tender to palpation.? Normal bowel sounds.? Time Spent Time spent with Patient: <40 minutes Time was spent: preparing to see the patient(eg.review tests), obtaining and/or reviewing separately otained hiistory, ordering medications,tests, procedures, referring, communicating with other health floor care specialist, indepentently interpreting results, counseling the patient and care coordination
--- NOTE | 2023-09-08 15:59 | PDOC.DSDIS_ITS ---
Date of service: 09/09/23 Time of Service: 09:58 Discharge Plan Disposition Patient Disposition: Home Condition: Good Discharge Details Reason For Visit: CRC screening Attending Provider: Shanelle Roblero Primary Care Provider: Isaías Larios Home Meds and New Rx's Prescriptions: Continued multivitamin Tablet 1 tab PO DAILY lorazepam 0.5 mg tablet 0.5 mg PO QHS PRN omeprazole 20 mg capsule,delayed release(DR/EC) 20 - 40 mg PO DAILY modafinil 100 mg tablet 100 mg PO QAM PRN Mounjaro 10 mg/0.5 mL pen injector 10 mg subcut QWEEK valsartan-hydrochlorothiazide 320-12.5 mg tablet 1 tab PO DAILY albuterol sulfate [ProAir HFA] 90 mcg/actuation HFA aerosol inhaler 2 puff inhalation Q6H PRN ibuprofen 600 mg tablet 600 mg PO TID PRN (Reason: pain) Qty: 30 0RF acetaminophen 500 mg capsule 1,000 mg PO Q8H PRN PRNQty: 90 0RF atorvastatin 20 mg tablet 20 mg PO DAILY cetirizine [Zyrtec] 10 mg Tablet 10 mg PO PRN PRN Discontinued polyethylene glycol 3350 17 gram/dose powder 238 g PO ONCE Qty: 238 0RF Rx Instructions: take per colonoscopy instructions bisacodyl [Dulcolax (bisacodyl)] 5 mg tablet,delayed release (DR/EC) 5 mg PO ONCE Qty: 4 0RF Rx Instructions: take per colonoscopy instructions Discharge Instructions Additional Instructions: [facility] Colonoscopy Post- Op Instructions Instructions for Everyone who is given Anesthesia: For your safety, please do the following for the next twenty-four (24) hours: *Do Not operate a motor vehicle (car, truck, motorcycle, etc.) *Do Not drink alcoholic beverages or use any recreational drugs for the first 24 hours or while taking pain medications. The medications in your body may have a reaction that can be dangerous. *Do Not make any important decisions or sign any important papers. Findings: Internal & external hemorrhoids/diverticula-there is some mild residual irritation. I think you had a low grade infection previously. Make sure you are following a high-fiber diet, drinking plenty of water, and avoid straining to move your bowels. If you find you are having problems with chronic constipation or straining, then it is recommended that she start a fiber supplement such as Metamucil daily. diverticula- no polyps Follow up: Repeat in 10 years time. 1. No lifting over 20 pounds or strenuous activity for the first 24 hours after your procedure. After 24 hours there are no restrictions on your activity but you may feel fatigued for a few days. 2. After you arrive home you may have a light meal and return to your normal diet as you can tolerate it without feeling sick to your stomach. 3. You may have a bloated, gaseous feeling in your belly (abdomen) after a colonoscopy. Passing gas and belching will help. Walking or lying down on your left side with your knees flexed may relieve the discomfort. Call the office at [phone] (Office) or [phone] (Hospital) right away if you notice any of the following: a.Vomiting of blood or ?coffee ground stools?. b.Rectal bleeding 1Tbsp, blood clots or continuous bleeding. c.Severe belly (abdominal) pain. d.A hard distended belly (abdomen) and an inability to pass gas. 4. Please don?t expect to have a normal BM (bowel movement) for 2-3 days after your procedure. 5. If there are questions regarding the findings of your procedure, please contact your doctor 6. If you are unable to contact your doctor with a problem, contact the hospital at [phone]. 7. Continue all your regular medications unless directed otherwise. INSTRUCTIONS AFTER RUBBER BAND LIGATION RUBBER BANDS: There are many methods of treating hemorrhoids. Rubber band ligation is done by application of a small rubber band over the hemorrhoid. The bands, being elastic, tighten and strangulate the hemorrhoid until it falls off. Since internal hemorrhoids usually do not have much sensation to pain, this method is easily tolerated. However, external hemorrhoids are very sensitive, and this method cannot be used for them. ?AFTER THE PROCEDURE: ?It is not uncommon to feel a dull ache for a day or two. This sensation may be noted as soon as the rubber band is applied. Occasionally, it will make you feel as if you want to have a bowel movement. For this ache or discomfort, a great majority of patients either take no medication or they take a few Tylenol. (NOTE: AVOID THE USE OF ASPIRIN, ADVIL, OR MOTRIN (IBUPROFEN), ALEVE, ARTHRITIS MEDICATIONS, OR BLOOD THINNERS FOR ONE WEEK). Taking warm Sitz baths or sitting in a bath tub of warm water for 15 minutes will also relieve this discomfort. ?DIET: You may resume your regular diet. It is important to keep your bowel movements reasonably soft. You should take a bulk laxative (bran, Metamucil, Konsyl, Citrucel etc) daily to avoid hard stools or diarrhea. ?ACTIVITY: You may resume your normal activities such as driving a car, work, and sports.? Avoid ?saddle? type activities for two weeks- horse back rising, cycling, motorcycles/all-terrain vehicles. ?PRECAUTIONS: Banded hemorrhoid will drop off in about 3-10 days. Usually you will not notice anything other than some minor bleeding. Should severe bleeding (half a cup of blood at a time or more) occur, you should contact us immediately. If pain persists past 48 hours, or if it is not controlled by pain pills, or if there is urinary difficulty please call the office. Although this treatment is safe and effective, rare instances of severe infection or bleeding can occur. The main symptoms of infection are severe pain, chills and fever, and inability to urinate. I understand the above instructions and have no questions. Signature of Patient or Adult Escort Name of Responsible Adult Escort Signature of Nurse Date/Time Activity:: see above Diet:: see above Discharge Orders Discharge Orders: Discharge Order (Routine); Ordered 09/09/23 Ordered By: Shanelle Roblero DS: Diagnosis Discharge Diagnosis (1) Hypertension: Status: Chronic (2) Obesity: Status: Chronic (3) Steatosis of liver: Status: Acute (4) Thrombosed external hemorrhoid: Status: Acute (5) External hemorrhoids with complication: Status: Acute (6) Diverticula of colon: Status: Acute (7) Constipation by delayed colonic transit: Status: Acute Asessment and Plan: The patient is seen and examined after their colonoscopy.? The patient has been able to pass gas.? They are not having abdominal pain.? They have been able to tolerate liquids and a snack.? They do not have any nausea or vomiting.? They are not having any chest pain or shortness of breath.??? They are not having any rectal bleeding. Their vital signs have been stable-see nursing notes. We discussed findings during their colonoscopy, and any biopsies that were done/polyps that were removed. The patient will be sent a letter with any biopsy results, and when to repeat the colonoscopy.-see discharge instructions. Patient was given explicit instructions to follow-up regarding colonoscopy-refer to discharge instructions.? We reviewed resumption of medications. Patient verbalized understanding and discharged in stable and satisfactory condition- See nursing notes. (8) Erectile dysfunction: Status: Acute (9) Gout: Status: Chronic (10) GREER (obstructive sleep apnea): Status: Chronic (11) History of cigarette smoking: Status: Acute (12) Metabolic syndrome X: (13) Diabetes:
--- NOTE | 2023-09-08 16:02 | COLE_ITS ---
Date of service: 09/09/23 Time of Service: 10:40 Colonoscopy Report Date of procedure: 09/09/23 Pre-op diagnosis general: CRC screening/constipation Post-op diagnosis procedure note: same (Internal hemorrhoids x 1, external hemorrhoids x 3, and diverticula confined to the sigmoid colon) Procedure: And hemorrhoid banding x 1 Surgeon: Shanelle Roblero Anesthesia Type: General:No Airway Estimated blood loss (mL): 1 Pathology: other Complications: None Disposition: same day Prep: Miralax/Dulcolax Retraction Time: 11 Procedure Description: After informed consent was obtained the patient was taken to the procedure room and placed in a left decubitous position. Monitors were applied and a time out was done. The patients name, date of , procedure, allergies to medications and metal in their body was reviewed. The patient was then sedated. Once sedated and comfortable a rectal exam was done. External exam: External hemorrhoids x 3. Internal exam revealed a normal sphincter tone and no palpable masses. The prostate -not palpable. The scope was then introduced and retrofelexed. Grade 2 internal hemorrhoidsx1 x 1 column were identified. The scope was then advanced to the cecum without difficulty. The TI and appendiceal orifice were identified. The scope was then slowly retracted over 11 minutes back into the rectum. There were no polyps or AVMs visualized today. He does have moderate in size and number diverticula confined to the sigmoid colon. At 40 to 30 cm there is some minimal patchy erythema. Biopsies taken at 40 cm. All specimen is retrieved and no bleeding is noted. The scope was removed. The patient presents with symptomatic grade 1 I. hemorrhoids, unresponsive to maximal medical therapy, requesting rubber band ligation of his/her hemorrhoid disease.? All risks, benefits and alternative forms of therapy were described and informed consent was obtained, explaining risks and benefits of the procedure including but not limited to: bleeding/infection/recurrence/complications of anesthesia/need for repeat procedure. In the Left Lateral Decubitus position anoscopic examination revealed grade 1 I. hemorrhoids in the RA,/ 11 o?clock. ? There are no other masses noted.? Good sphincter tone. No rectal prolapse. The decision was made to band the RA, internal hemorrhoid, and suction clinic supervisor was used to perform band ligation without complication.? Digital anorectal examination was then performed to assure proper positioning of the band, and to adjust the banded tissue as required.? The patient was discharged home without pain or bleeding. ?Instructions were given in wound care/activity/warning signs and a pain management plan, as well as instructions to avoid constipation. along with follow-up instructions.? No complications were encountered and the patient tolerated the procedure well. the patient was woken up and taken back to Same day surgery in stable condition. The patient tolerated the procedure well and there were no immediate complications. Follow up: The patient should follow up in 10 years unless they develop changes in bowel habits or other new gastrointestinal complaints.
[2023-09-09 09:24] VITALS: BP 136/93; PULSE 99; RESP 16; TEMP 36.7; O2SAT 96
[2023-09-09] MEDS: Lactated Ringers 1,000 ML 80 ML IV (09:35)
--- NOTE | 2023-09-09 09:36 | W.ANESPRE ---
General Info Date of Service Date Performed: 09/09/23 Height: 5 ft 11.5 in Weight: 132.9 kg Body Mass Index (BMI): 40.3 Surgical Procedure: Operation Date: 09/09/23 09:55 Proposed Procedure Side Surgeon p Colonoscopy Shanelle Roblero DO s Possible Hemorrhoid Banding Shanelle Roblero DO Meds Allergies and Home Medications Allergies Allergy/AdvReac Type Severity Reaction Status Date / Time Penicillins Allergy Unknown Unsure Verified 09/09/23 09:30 happened as child grass pollen AdvReac Mild Other (See Verified 09/09/23 09:30 Comment) Home Medication Medication Instructions Recorded lorazepam 0.5 mg tablet 0.5 mg PO QHS PRN 09/25/19 atorvastatin 20 mg tablet 20 mg PO DAILY 06/17/20 acetaminophen 500 mg capsule 1,000 mg (2 x 500 mg) PO Q8H PRN 08/13/20 PRN #90 caps ibuprofen 600 mg tablet 600 mg PO TID PRN pain #30 tabs 08/13/20 cetirizine 10 mg tablet (Zyrtec) 10 mg PO PRN PRN 01/02/22 albuterol sulfate 90 mcg/actuation 2 puff inhalation Q6H PRN 07/11/23 aerosol inhaler (ProAir HFA) modafinil 100 mg tablet 100 mg PO QAM PRN 07/11/23 tirzepatide 10 mg/0.5 mL 10 mg subcut QWEEK 07/11/23 subcutaneous pen injector (Mounjaro) valsartan 320 1 tab PO DAILY 07/11/23 mg-hydrochlorothiazide 12.5 mg tablet multivitamin 1 tab PO DAILY 07/26/23 omeprazole 20 mg capsule,delayed 20 - 40 mg PO DAILY 07/26/23 release Current Visit Medications: Current Medications Generic Name Dose Route Start Last Admin Trade Name Freq PRN Reason Stop Dose Admin Hyoscyamine Sulfate 0.125 mg 09/09/23 03:51 Hyoscyamine 0.125 Mg Sl/Oral/Chew SL 10/09/23 03:50 DIRECTED PRN Ringer's Solution 1,000 mls @ 80 mls/hr 09/09/23 06:00 09/09/23 09:35 IV 10/08/23 23:59 80 mls/hr INFUSION AMAN Administration IV Miscellaneous Supplies 1 each 09/09/23 06:00 Iv Access IV 10/08/23 23:59 DIRECTED AMAN Ondansetron HCl 4 mg 09/09/23 03:51 Ondansetron 4 Mg/2 Ml Vial IVP 10/09/23 03:50 Q4H PRN PRN Nausea / Vomiting Sodium Chloride 0 ml 09/09/23 06:00 Normal Saline Flush 10 Ml Syr IV 10/08/23 23:59 PRN PRN Sodium Chloride 0 ml 09/09/23 06:00 Normal Saline 10 Ml Vial IJ 10/08/23 23:59 DIRECTED PRN Sterile Water 0 ml 09/09/23 06:00 Water,Injection,Sterile 10 Ml Vial IJ 10/08/23 23:59 DIRECTED PRN PFSH Active Problems Active Problems: Problem Status Onset Code Constipation by delayed colonic transit K59.01 Diverticula of colon K57.30 External hemorrhoids with complication K64.4 Steatosis of liver K76.0 Allergic rhinitis J30.9 Thrombosed external hemorrhoid K64.5 GREER (obstructive sleep apnea) G47.33 Closed fracture of fifth metacarpal bone of right hand 08/09/20 S62.306A Fracture of base of fourth metacarpal bone of right hand 08/09/20 S62.314A History of cigarette smoking Z87.891 Erectile dysfunction N52.9 Gout M10.9 Hypertension I10 Fatigue R53.83 Obesity E66.9 Medical History Medical History Metabolic syndrome X Hyperlipidemia Tinea pedis Onychomycosis due to dermatophyte Dysphonia (12/16/14) Gastroesophageal reflux disease (10/21/14) Diabetes Rectal bleeding Foot pain, left Fatty (change of) liver, not elsewhere classified Surgical History Surgical History Hx of arthroscopy of left knee Tobacco Smoking/Tobacco Use Status: Former Tobacco Use Alcohol Alcohol Intake: current Alcohol intake frequency: 0-2 drinks per day Alcohol type: beer and hard liquor Substance Use Substance use: Never Substance use type: does not use Vital Signs and Lab Results Vital Signs Most Recent Vital Signs in EMR: Most Recent Vital Signs Temp Pulse Resp BP Pulse Ox 36.7 C 99 H 16 136/93 H 96 09/09/23 09:24 09/09/23 09:24 09/09/23 09:24 09/09/23 09:24 09/09/23 09:24 Lab Results Blood Type / Crossmatch: No Data to Display Complete Blood Count: No Data to Display Complete Metabolic Panel: No Data to Display Liver Function Panel: No Data to Display Coagulation Panel: No Data to Display Cardiac Panel: No Data to Display Arterial Blood Gas: No Data to Display Venous Blood Gas: No Data to Display Pancreas Panel: No Data to Display Thyroid Panel: No Data to Display Infectious Disease: No Data to Display Blood Cultures: No Data to Display Toxicology Panel: No Data to Display Imaging and Studies Imaging and Studies Study information below may be from another EMR and interpreted by another provider. Please see original notes in EMR for more complete details. Stress Test Summary: 10/23/19 Stress ECG Conclusion 1. The patient exercised on the Jair protocol and completed a workload of 13.48 METS without symptoms to suggest angina 2. Hypertension at rest. Normal blood pressure and heart rate response to exercise 3. Normal resting electrocardiogram. No electrocardiographic evidence of myocardial ischemia at 97% of predicted heart rate for age 4. Sporadic ventricular ectopic beats were noted Echocardiogram Summary: 07/31/15 Summary: 1. Left ventricle: The cavity size was normal. Wall thickness was normal. Systolic function was normal. The estimated ejection fraction was 60-65%. Wall motion was normal; there were no regional wall motion abnormalities. 2. Mitral valve: Mild regurgitation. 3. Left atrium: The atrium was mildly dilated. 4. Right ventricle: The cavity size was normal. Wall thickness was normal. Systolic function was normal. 5. Pulmonary arteries: Pulmonary systolic pressure was in the range of 10mm Hg to 20mm Hg. 6. Inferior vena cava: The vessel was normal in size; the respirophasic diameter changes were in the normal range (greater than or equal to 50%); findings are consistent with normal central venous pressure. Anesthesia Assessment and Plan Anesthesia History Personal History: No History of Anesthesia Complications Family History: No Family History of Anesthesia Complications Exercise Tolerance Exercise Tolerance: Metabolic Equivalents>4 Pertinent Negatives Pertinent Negatives: No Symptoms of GERD, No Major Cardiovascular Symptoms or Complaints, No Major Pulmonary Symptoms or Complaints and No History of CVA/TIA Cardiac & Pulmonary Exam Cardiac Exam: Normal S1/S2 Heart Sounds Pulmonary Exam: Clear Bilateral Breath Sounds Cardiac and Pulmonary Comment:: GREER, does not tolerate CPAP Post nasal gtt Implantable Cardiac Device Does patient have a Pacemaker or an ICD?: No Airway Exam Known Difficult Airway: No Mallampati Class: 2 Mouth Opening: Normal (> 3cm) Thyromental Distance: Greater than 3 cm Neck Range of Motion: Full ROM Neck Circumference: Normal Teeth Condition: Normal Dentition (partial at home) ASA Classification ASA Score: ASA 3 Emergency Case?: No NPO Status NPO Status: NPO Clears >2 hours, Solids >8 hours Anesthesia Plan Resuscitation Status: Full Code Anesthesia Technique: General Anesthesia Airway Planned: Natural Airway Monitors Used: Standard Monitors
[2023-09-09 09:38] VITALS: BMI 40.3
--- NOTE | 2023-09-09 10:19 | BOWEL_PTH ---
PATIENT: Edgar Longoria JR LOC: [facility] U#:[id number] AGE/SX: 47/M ROOM: RE09/09/[address]: Shanelle Roblero : 1975 BED: DIS: 09/09/2023 SPEC #: [id number] RECD: 09/09/23 13:13 STATUS: SEVEN REQ #: [id number] ALISSA: 09/09/23 10:[address]: Shanelle Roblero DEPT: Surgical Specimen RECD BY: Asha Lima ENTERED: 09/09/23 13:14 SP TYPE: Bowel OTHR DR: Isaías Larios Tissues: 1 - BIOPSY BOWEL Procedures: GROSS AND MICRO LEVEL 4 Comments: [id number]
[2023-09-09 10:35] VITALS: BP 135/91; PULSE 90; RESP 20; TEMP 36.5; O2SAT 93
--- NOTE | 2023-09-09 10:55 | W.ANESPOSTOP ---
Postoperative Evaluation Date, Time and Location Date Performed: 09/09/23 Time Performed: 10:49 Patient Location: Day Surgery Unit Vital Signs Most Recent Imported Vital Signs: Most Recent Vital Signs Temp Pulse Resp BP Pulse Ox 36.5 C 90 20 135/91 H 93 09/09/23 10:35 09/09/23 10:35 09/09/23 10:35 09/09/23 10:35 09/09/23 10:35 Pain Score Most Recent Pain Score: Most Recent Pain Score Pain Level 1 09/09/23 10:35 Assessment Mental Status: Awake (Alert & Oriented to Patient Baseline) Airway and Respiratory Function: Patent airway with normal (patient baseline) respiratory exam Cardiovascular Function: Hemodynamically Stable Hydration Status: Adequately Hydrated Nausea & Vomiting: No Nausea or Vomiting Pain: Pt. Denies Any Pain Peripheral Nerve Block: Patient did not receive a nerve block
[2023-09-09] MEDS: Acetaminophen 500 MG TAB 1000 MG PO (10:59)
[2023-09-09 11:05] VITALS: BP 153/102; PULSE 85; RESP 18; TEMP 36.6; O2SAT 96
== END 2023-09-09 11:45 | disposition home or self-care (01) ==
LOC: SUR 09:01
PROVIDERS: PCP Physician Assistant; Visit Provider Surgery
PROC: 0DJD8ZZ Inspection of Lower Intestinal Tract, Via Natural or Artificial Opening Endoscopic (ICD-10-PCS; CPT 45378; principal; 2023-09-09 09:45)
PROC: (CPT 45380; 2023-09-09 09:45)
DX: Z12.11 Encounter for screening for malignant neoplasm of colon (principal); K64.1 Second degree hemorrhoids; K59.01 Slow transit constipation; K57.30 Diverticulosis of large intestine without perforation or abscess without bleeding; I10 Essential (primary) hypertension; E66.9 Obesity, unspecified; Z87.891 Personal history of nicotine dependence; E11.9 Type 2 diabetes mellitus without complications; G47.33 Obstructive sleep apnea (adult) (pediatric); K63.89 Other specified diseases of intestine
CPT/HCPCS: 45380; 46221; 88305; J1885; J2001; J2405; J2704

== ENCOUNTER 2024-04-01 09:27 | Emergency (ER) | payer BC, SELFPAY ==
[2024-04-01 09:31] VITALS: BP 148/88; PULSE 95; TEMP 36.8; O2SAT 97
[2024-04-01 09:33] VITALS: BP 148/88; PULSE 95; TEMP 36.8; O2SAT 97
[2024-04-01 09:43] LABS: Bilirubin Negative (Negative); Blood Large (Negative); Clarity Cloudy (Clear); Glucose >=1000 mg/dL (Negative); Ketones Trace mg/dL (Negative); Leukocyte Esterase Small (Negative); Nitrite Negative (Negative); pH 8.5 (5-8)
[2024-04-01 09:51] LABS: Bacteria Few HPF (Negative); C & S Indicated? Yes; Casts Negative LPF (Negative); Crystals Negative HPF (Negative); Epithelial Cells Rare HPF (Negative); Mucus Negative (Negative); RBC >50 HPF (0-2); WBC >50 HPF (0-5)
--- NOTE | 2024-04-01 10:04 | ED.GENADUL_ITS ---
Discharge Plan Disposition Patient Disposition: Home Condition: Stable Discharge Details Clinical Impression: Acute UTI Primary Care Provider: Isaías Larios ED Provider: Isabel Dodson Home Meds and New Rx's Prescriptions: New sulfamethoxazole-trimethoprim [Bactrim DS] 800-160 mg tablet 1 tab PO BID 10 Days Qty: 20 0RF No Action multivitamin Tablet 1 tab PO DAILY lorazepam 0.5 mg tablet 0.5 mg PO QHS PRN omeprazole 20 mg capsule,delayed release(DR/EC) 20 - 40 mg PO DAILY modafinil 100 mg tablet 100 mg PO QAM PRN Mounjaro 10 mg/0.5 mL pen injector 10 mg subcut QWEEK valsartan-hydrochlorothiazide 320-12.5 mg tablet 1 tab PO DAILY albuterol sulfate [ProAir HFA] 90 mcg/actuation HFA aerosol inhaler 2 puff inhalation Q6H PRN ibuprofen 600 mg tablet 600 mg PO TID PRN (Reason: pain) Qty: 30 0RF acetaminophen 500 mg capsule 1,000 mg PO Q8H PRN PRNQty: 90 0RF atorvastatin 20 mg tablet 20 mg PO DAILY cetirizine [Zyrtec] 10 mg Tablet 10 mg PO PRN PRN Discharge Instructions Instructions: Urinary Tract Infection, Adult ED Additional Instructions: It appears you have a urinary tract infection. Please take the antibiotic as directed twice daily with yogurt or a probiotic. Follow up with primary care provider in 3-5 days. Return to ED sooner if any worsening or concerns. Please take Tylenol or Ibuprofen with food every 4-6 hours as needed for pain and swelling. Referrals: Isaías Larios [Primary Care Provider] - 1 week Discharge Data Discharge Date/Time-TO BE ENTERED AT DEPARTURE: 04/01/24 10:17 HPI General Mode of arrival: ambulatory . Date/Time Provider Initiated Documentation: 04/01/24 09:31 . Limitations to Documentation: no limitations . Information obtained by: patient, RN notes reviewed and old records reviewed . HPI Narrative: 48-year-old male presents to the ER with a chief complaint of dysuria and hematuria which started yesterday. Denies any back pain denies any nausea vomiting fever or any other associated symptoms. Denies any penile discharge or concerns for STDs. Related Data Home Medications ?Medication ?Instructions ?Recorded ?Confirmed lorazepam 0.5 mg tablet 0.5 mg PO QHS PRN 09/25/19 09/09/23 atorvastatin 20 mg tablet 20 mg PO DAILY 06/17/20 09/09/23 acetaminophen 500 mg capsule 1,000 mg (2 x 500 mg) PO Q8H PRN 08/13/09/09/23 PRN #90 caps ibuprofen 600 mg tablet 600 mg PO TID PRN pain #30 tabs 08/13/20 09/09/23 cetirizine 10 mg tablet (Zyrtec) 10 mg PO PRN PRN 01/02/22 09/09/23 albuterol sulfate 90 mcg/actuation 2 puff inhalation Q6H PRN 07/11/23 09/09/23 aerosol inhaler (ProAir HFA) modafinil 100 mg tablet 100 mg PO QAM PRN 07/11/23 09/09/23 tirzepatide 10 mg/0.5 mL 10 mg subcut QWEEK 07/11/23 09/09/23 subcutaneous pen injector (Narda) valsartan 320 1 tab PO DAILY 07/11/23 09/09/23 mg-hydrochlorothiazide 12.5 mg tablet multivitamin 1 tab PO DAILY 07/26/23 09/09/23 omeprazole 20 mg capsule,delayed 20 - 40 mg PO DAILY 07/26/23 09/09/23 release sulfamethoxazole 800 1 tab PO BID 10 days #20 tabs 04/01/24 mg-trimethoprim 160 mg tablet (Bactrim DS) Previous Rx's ?Medication ?Instructions ?Recorded acetaminophen 500 mg capsule 1,000 mg (2 x 500 mg) PO Q8H PRN 08/13/20 PRN #90 caps ibuprofen 600 mg tablet 600 mg PO TID PRN pain #30 tabs 08/13/20 sulfamethoxazole 800 1 tab PO BID 10 days #20 tabs 04/01/24 mg-trimethoprim 160 mg tablet (Bactrim DS) Allergies Allergy/AdvReac Type Severity Reaction Status Date / Time Penicillins Allergy Unknown Unsure Verified 04/01/24 10:13 happened as child grass pollen AdvReac Mild Other (See Verified 04/01/24 10:13 Comment) General Stated Complaint: Urinary CANDE: 3 Review of Systems All systems reviewed & are unremarkable except as noted in HPI and below Genitourinary Genitourinary: Reports dysuria Exam Narrative Exam Narrative: Constitutional: Alert and oriented x3. Appears stated age. Normal body habitus. Chest: RRR, Normal S1, S2, distal pulses intact. Resp: Lungs clear to auscultation bilaterally, no wheezes, rales, or rhonchi. Abdomen: Soft, non-distended, Normoactive bowel sounds all 4 quads. Musculoskeletal: Normal gait, Moves all 4 extremities without difficulty. Skin: No suspicious rashes or lesions. Capillary refill less than 2 sec. Course Vital Signs Vital signs: Vital Signs Temperature 36.8 C 04/01/24 09:31 Pulse 95 H 04/01/24 09:31 Blood Pressure 148/88 H 04/01/24 09:31 Pulse Oximetry 97 04/01/24 09:31 Temperature 36.8 C 04/01/24 09:33 Temperature Source Oral 04/01/24 09:33 Pulse 95 H 04/01/24 09:33 Respiratory Effort Normal 04/01/24 09:41 Blood Pressure 148/88 H 04/01/24 09:33 Blood Pressure Position Sitting 04/01/24 09:33 Pulse Oximetry 97 04/01/24 09:33 Oxygen Delivery Method Room Air 04/01/24 09:33 Oxygen Flow Rate 0 04/01/24 09:33 Lab/Test Results Lab/Test Results: 04/01/24 09:36 Urine - Reflex from Ua Urine Culture - Pending Laboratory Tests Range/Units 04/01/24 09:36 Urine Color (Yellow) Yellow Urine Clarity (Clear) Cloudy Urine pH (5-8) 8.5 H Ur Specific [place] (1.005-1.025) 1.020 Urine Protein (Neg-Trace) mg/dL >=300 H Urine Ketones (Negative) mg/dL Trace H Urine Blood (Negative) Large H Urine Nitrite (Negative) Negative Urine Bilirubin (Negative) Negative Urine Urobilinogen (Up to 0.2) mg/dL 4.0 H Ur Leukocyte Esterase (Negative) Small H Urine RBC (0-2) HPF >50 H Urine WBC (0-5) HPF >50 H Ur Epithelial Cells (Negative) HPF Rare Urine Crystals (Negative) HPF Negative Urine Bacteria (Negative) HPF Few Urine Casts (Negative) LPF Negative Urine Mucus (Negative) Negative Ur Culture Indicated? Yes Urine Glucose (Negative) mg/dL >=1000 H Medical Decision Making 48-year-old male presents to the ER with a chief complaint of dysuria and hematuria which started yesterday. Denies any back pain denies any nausea vomiting fever or any other associated symptoms. Denies any penile discharge or concerns for STDs. Urinalysis shows greater than 300 protein, trace ketones large blood small leukocytes greater than 50 WBCs greater than 50 RBCs. Will treat with Bactrim as patient is allergic to penicillin. First dose given here in the department. This text was generated using [employer] system, please disregard any oddities of phrase or misspellings. Lab Data Lab results reviewed: Yes I reviewed the patient's lab results. Labs: 04/01/24 09:36 Urine - Reflex from Ua Urine Culture - Pending Laboratory Tests Range/Units 04/01/24 09:36 Urine Color (Yellow) Yellow Urine Clarity (Clear) Cloudy Urine pH (5-8) 8.5 H Ur Specific [place] (1.005-1.025) 1.020 Urine Protein (Neg-Trace) mg/dL >=300 H Urine Ketones (Negative) mg/dL Trace H Urine Blood (Negative) Large H Urine Nitrite (Negative) Negative Urine Bilirubin (Negative) Negative Urine Urobilinogen (Up to 0.2) mg/dL 4.0 H Ur Leukocyte Esterase (Negative) Small H Urine RBC (0-2) HPF >50 H Urine WBC (0-5) HPF >50 H Ur Epithelial Cells (Negative) HPF Rare Urine Crystals (Negative) HPF Negative Urine Bacteria (Negative) HPF Few Urine Casts (Negative) LPF Negative Urine Mucus (Negative) Negative Ur Culture Indicated? Yes Urine Glucose (Negative) mg/dL >=1000 H Quality:SDOH Health Related Social Needs: No Data to Display PFSH All Active Problems (Updated 04/01/24 @ 10:05 by Isabel Dodson NP) Acute UTI (Acute) Hyperplastic colon polyp (Acute ~08/2023) Constipation by delayed colonic transit (Acute) Diverticula of colon (Acute) External hemorrhoids with complication (Acute) Steatosis of liver (Acute) Allergic rhinitis (Acute) Thrombosed external hemorrhoid (Acute) GREER (obstructive sleep apnea) (Chronic) Closed fracture of fifth metacarpal bone of right hand (Acute 08/09/20) S/P closed reduction percutaneous pinnin08/13/2020 Fracture of base of fourth metacarpal bone of right hand (Acute 08/09/20) S/P closed reduction percutaneous pinnin08/13/2020 History of cigarette smoking (Acute) Erectile dysfunction (Acute) Gout (Chronic) Hypertension (Chronic) Fatigue (Acute) Obesity (Chronic) Medical History Metabolic syndrome X Hyperlipidemia Tinea pedis Onychomycosis due to dermatophyte Dysphonia (12/16/14) Gastroesophageal reflux disease (10/21/14) Diabetes Rectal bleeding Foot pain, left Fatty (change of) liver, not elsewhere classified Surgical History History of colonoscopy (~08/2023) Hx of arthroscopy of left knee Social History Smoking/Tobacco Use Status: Former Tobacco Use Quit Date: 06/20/04 Smoking risk assessment performed?: Yes Alcohol Intake: current Alcohol Intake frequency: 0-2 drinks per day Alcohol type: beer and hard liquor Drug use: Never Substance use type: does not use Housing: house Do you feel safe at home: Yes Do you feel safe in your relationship?: Yes
[2024-04-01] MEDS: Sulfameth/Trimeth DS TAB 1 TAB PO (10:12)
[2024-04-01 10:13] VITALS: BP 154/70; PULSE 94; RESP 16; O2SAT 98
[2024-04-01] MEDS: Sulfameth/Trimeth DS, 2 TABS/BTL 1 TAB PO (10:13)
== END 2024-04-01 10:17 | disposition home or self-care (01) ==
PROVIDERS: Emergency Provider Registered Nurse Emergency; PCP Physician Assistant
DX: R30.0 Dysuria (principal); R31.9 Hematuria, unspecified; N39.0 Urinary tract infection, site not specified
CPT/HCPCS: 87077; 99283; 81003; 81015; 87086; 87186

== ENCOUNTER 2024-06-10 10:14 | Emergency (ER) | payer BC, SELFPAY ==
[2024-06-10] VITALS (9 sets, daily range): BP systolic 128–139; BP diastolic 79–83; PULSE 90–96; RESP 18; TEMP 36.5; O2SAT 91–98
[2024-06-10] MEDS: Albuterol/Ipratropium 3 ML UPD VIAL UPD (10:25)
--- NOTE | 2024-06-10 10:30 | DI.CT_ITS ---
Exam(s) CT CHEST PE CTA EXAM: CT CHEST PE CTA CLINICAL HISTORY: hemoptysis. TECHNIQUE: Imaging Protocol: Axial CT angiography was performed with multi-slice acquisition and mu lti-planar and/or 3D reconstructions. Lung Computer Aided Detection (CAD) was utilized. CONTRAST MATERIAL: Intravenous: Omnipaque 350 contrast volume:100 mL COMPARISON: CR XR CHEST 2V PA LATERAL from 09/28/2019 FINDINGS: Tracheobronchial tree: Patent where visualized. No bronchiectasis. Pulmonary parenchyma: There is a small ground-glass infiltrate in the left lingula. No focal consoli dating infiltrates are seen elsewhere in the lungs. No pulmonary nodules are present. No architectu ral distortion. Pulmonary Arteries: No evidence of filling defect to suggest pulmonary emboli. Mediastinum and Izzy: No dominant adenopathy or fluid collection. The esophagus is unremarkable. Visualized thyroid gland: Unremarkable. Pleura: No effusion or pneumothorax. Heart: The heart is not dilated. Coronary artery calcifications are present. No pericardial effusion . Aorta: Thoracic aorta non-dilated. No evidence of dissection. Upper abdomen: There is decreased attenuation of the liver suggesting fatty infiltration. Soft tissues: Unremarkable. Bones: Within normal limits for the patient's age. IMPRESSION: 1. No evidence of pulmonary embolism, thoracic aortic dissection or aneurysm. 2. Small infiltrate in the left lingula which may represent atelectasis or pneumonia. Please correla te clinically. RADIATION DOSE DELIVERED: 360.03mGy.cm Total DLP DATA REPOSITORY: All CT scans at this facility are submitted to the National Radiology Data Registry (NRDR) Dose Index Registry (DIR) with the [employer] (A[employer]). RADIATION OPTIMIZATION: All CT scans at this facility use at least one of these dose optimization te chniques: automated exposure control; mA and/or kV adjustment per patient size (includes targeted exa ms where dose is matched to clinical indication); or iterative reconstruction.
--- NOTE | 2024-06-10 10:30 | RT.EKG_ITS ---
APPROVED REPORT Exam: Resting ECG Reason for Exam: chest pain Patient Location: E HR:79 bpm ECG Measurements Heart Rate 79 AXIS MT 161 P 37 QRSd 97 QRS 58 QT 350 T 22 QTc 403 Conclusion Sinus rhythm...normal P axis, V-rate 60- 99 [id number], old compared to prior
--- NOTE | 2024-06-10 10:36 | W.ED.GENAD ---
Discharge Plan Disposition Patient Disposition: Home Condition: Stable Discharge Details Clinical Impression: Respiratory syncytial virus (RSV) Primary Care Provider: Isaías Larios ED Provider: Suraj Stanley Home Meds and New Rx's Prescriptions: Continued multivitamin Tablet 1 tab PO DAILY lorazepam 0.5 mg tablet 0.5 mg PO QHS PRN omeprazole 20 mg capsule,delayed release(DR/EC) 20 - 40 mg PO DAILY modafinil 100 mg tablet 100 mg PO QAM PRN Mounjaro 10 mg/0.5 mL pen injector 10 mg subcut QWEEK valsartan-hydrochlorothiazide 320-12.5 mg tablet 1 tab PO DAILY albuterol sulfate [ProAir HFA] 90 mcg/actuation HFA aerosol inhaler 2 puff inhalation Q6H PRN ibuprofen 600 mg tablet 600 mg PO TID PRN (Reason: pain) Qty: 30 0RF acetaminophen 500 mg capsule 1,000 mg PO Q8H PRN PRNQty: 90 0RF atorvastatin 20 mg tablet 20 mg PO DAILY cetirizine [Zyrtec] 10 mg Tablet 10 mg PO PRN PRN dapagliflozin propanediol [Farxiga] 10 mg tablet 10 mg PO DAILY Discharge Instructions Instructions: Albuterol, Benzonatate, RSV in adults - Discharge instructions Additional Instructions: You were seen in the emergency department for your cough with RSV infection, there is no blood clot in your lungs, no major viral pneumonia on CT scan. Your labs are all reassuring, I have provided you with an albuterol inhaler to help with some shortness of breath at home. I provided you to go pack of benzonatate, a cough suppressant, to take before bedtime to help you sleep. Please use therapeutic dosing of Tylenol (acetamenophen) & Advil (ibuprofen) in an alternating fashion as follows: Take 1000mg of Tylenol every 6 hours without missing doses- that is 4 times per day. [place] in between the Tylenol dosings, take 400-600mg of Advil also on a 6 hour schedule, that is also 4 times per day. The daily maximum dosing of Tylenol is 4000mg, and the daily maximum dosing of Advil is 2400mg. This is safe to do for weeks. Please note that some common cold medications & prescription pain medications may contain acetamenophen and you need to read OTC drug labels and factor that in to maximum daily dosings. Please return to the emergency department for increasing respiratory distress despite treatment, this may take another 1 to 2 weeks to fully clear from your system, return for developing fevers, productive cough with green sputum or other emergent concerns. Referrals: Isaías Larios [Primary Care Provider] - Discharge Data Discharge Date/Time-TO BE ENTERED AT DEPARTURE: 06/10/24 13:11 HPI General Date/Time Provider Initiated Documentation: 06/10/24 10:25. HPI Narrative: 48 year-old male presents to ED today by POV/ambulating with a chief complaint of coughing up blood, mild SOB, chest tightness, subjective fevers for 4 days. Quality described as severe respiratory illness, no radiation to crushing chest pain, intractable nausea/vomiting, abdominal pain, diarrhea, profound lethargy. Severity is described as moderate to severe. Palliating factors include nothing specific attempted. Provoking factors include nothing specific. Patient not anticoagulated. Related Data Home Medications ?Medication ?Instructions ?Recorded ?Confirmed lorazepam 0.5 mg tablet 0.5 mg PO QHS PRN 09/25/19 06/10/24 atorvastatin 20 mg tablet 20 mg PO DAILY 06/17/20 06/10/24 acetaminophen 500 mg capsule 1,000 mg (2 x 500 mg) PO Q8H PRN 08/13/20 06/10/24 PRN #90 caps ibuprofen 600 mg tablet 600 mg PO TID PRN pain #30 tabs 08/13/20 06/10/24 cetirizine 10 mg tablet (Zyrtec) 10 mg PO PRN PRN 01/02/22 06/10/24 albuterol sulfate 90 mcg/actuation 2 puff inhalation Q6H PRN 07/11/23 06/10/24 aerosol inhaler (ProAir HFA) modafinil 100 mg tablet 100 mg PO QAM PRN 07/11/23 06/10/24 tirzepatide 10 mg/0.5 mL 10 mg subcut QWEEK 07/11/23 06/10/24 subcutaneous pen injector (Narda) valsartan 320 1 tab PO DAILY 07/11/23 06/10/24 mg-hydrochlorothiazide 12.5 mg tablet multivitamin 1 tab PO DAILY 07/26/23 06/10/24 omeprazole 20 mg capsule,delayed 20 - 40 mg PO DAILY 07/26/23 06/10/24 release dapagliflozin propanediol 10 mg 10 mg PO DAILY 06/10/24 06/10/24 tablet (Farxiga) Previous Rx's ?Medication ?Instructions ?Recorded acetaminophen 500 mg capsule 1,000 mg (2 x 500 mg) PO Q8H PRN 08/13/20 PRN #90 caps ibuprofen 600 mg tablet 600 mg PO TID PRN pain #30 tabs 08/13/20 Allergies Allergy/AdvReac Type Severity Reaction Status Date / Time Penicillins Allergy Unknown Unsure Verified 06/10/24 10:23 happened as child grass pollen AdvReac Mild Other (See Verified 06/10/24 10:23 Comment) General Stated Complaint: RespSymp CANDE: 4 Review of Systems All systems reviewed & are unremarkable except as noted in HPI and below Exam Narrative Exam Narrative: GENERAL APPEARANCE: Well-nourished, non-toxic, awake and alert, atraumatic, no acute distress. SKIN: Warm, pink, dry, intact, without rashes/lesions/ulcerations. HEAD: Normocephalic, atraumatic, normal hair distribution for gender/age. EYES: Normal conjunctiva, no exudates on lids/lashes. ENT: Nares patent, no circumoral cyanosis, no facial swelling NECK: Supple, trachea midline, painless cervical ROM. LUNGS/CHEST: Lungs - diffusely rhonchorous, non-labored respirations, normal A/P diameter, symmetrical expansion, no chest wall deformity HEART (CV/PV): Regular rate and rhythm without murmur, no peripheral edema, no JVD. ABDOMEN: Soft, non-distended, no guarding. MSK: Normal ROM, no swelling/deformity to bilateral UEs or LEs, moving all extremities without weakness, no cyanosis, spine midline without tenderness, normal curvature. NEURO: Mental Status AAOx4 - alert to person, place, time, events No facial droop, no forehead involvement. Motor: No focal weakness - strength 5/5 in bilateral UEs and LEs, proximal and distal, symmetric. Sensory: sensation intact to light touch globally. Gait normal: patient ambulated without ataxia into ED room. PSYCH: euthymic, cooperative, pleasant, appropriate speech Course Vital Signs Vital signs: Vital Signs Temperature 36.5 C 12/22/24 10:19 Pulse 96 H 06/10/24 10:19 Respiratory Rate 18 06/10/24 10:19 Blood Pressure 129/83 06/10/24 10:19 Pulse Oximetry 98 06/10/24 10:19 Temperature 36.5 C 06/10/24 10:25 Pulse 96 H 06/10/24 10:25 Respiratory Rate 18 06/10/24 10:25 Blood Pressure 129/83 06/10/24 10:25 Blood Pressure Position Supine 06/10/24 10:25 Pulse Oximetry 98 06/10/24 10:25 Medical Decision Making This dictation utilizes [id number] dictation software and may contain unedited grammatical errors. 48 year-old male presents to ED today by POV/ambulating with a chief complaint of coughing up blood, mild SOB, chest tightness, subjective fevers for 4 days. Quality described as severe respiratory illness, no radiation to crushing chest pain, intractable nausea/vomiting, abdominal pain, diarrhea, profound lethargy. Severity is described as moderate to severe. Palliating factors include nothing specific attempted. Provoking factors include nothing specific. Patients' medical history: Hyperlipidemia, diabetes, GREER, hypertension. Family and social history: remote history of tobacco use. Pertinent exam findings / vital signs include diffusely rhonchorous lungs, no hypoxia, benign abdomen neuro intact. Differential / pathologies of concern include pneumonia, viral syndrome, PE, unlikely sepsis, not hypoxic respiratory failure. Diagnostic studies of: -CBC, CMP, troponin and BNP, respiratory PCR swab, coagulation studies. -CBC shows no acute abnormality -CMP has no actionable abnormality -Troponin and BNP negative -Respiratory PCR swab shows positive for RSV -Coagulation studies benign -CTA of the chest shows no PE, no pneumonia Interventions of: -albuterol inhaler to go, DuoNeb with improvement here, benzonatate qHS for help with sleep ED Course/Assessment/Plan: 48-year-old male presents with 4 days of respiratory illness with hemoptysis, suspicious for PE but CT is negative for any PE, negative for pneumonia, he has RSV and has nontoxic vitals without hypoxia, was given a DuoNeb and feels much better, was sent home with an albuterol inhaler and recommended therapeutic dosing Tylenol and ibuprofen with strict return criteria for any further signs of respiratory distress. Findings not consistent with hypoxic respiratory failure, PNA, PE. Disposition of Respiratory Syncytial Virus (RSV). Patient verbalized understanding of the plan and return to ED criteria and engaged in shared decision making. Medical Records Medical records reviewed: Yes I reviewed the patient's medical records. Imaging Data Radiologic Study: Attestation: I personally reviewed and interpreted this imaging study as follows: Imaging: CT Scan Radiologist's impression: Exam: CTA Chest With Contrast Exam date and time: 06/10/2024 11:23 AM Age: 48 years old Clinical indication: Cough TECHNIQUE: Imaging protocol: Computed tomographic angiography of the chest with contrast. Exam focused on the arteries. 3D rendering (Not supervised by radiologist): MIP and/or 3D reconstructed images were created by the technologist. Contrast material: OMNIPAQUE 350; Contrast volume: 100 ml; Contrast route: INTRAVENOUS (IV); COMPARISON: CR XR CHEST 2V PA LATERAL 09/28/2019 12:16 PM FINDINGS: Pulmonary arteries: Normal. No pulmonary emboli. Aorta: Unremarkable. No aortic aneurysm. No aortic dissection. Lungs: Unremarkable. No consolidation. No masses. Pleural spaces: Unremarkable. No pneumothorax. No pleural effusion. Heart: Unremarkable. No cardiomegaly. No pericardial effusion. Coronary arteries: No coronary artery calcification. Lymph nodes: Small mediastinal lymph nodes. No lymphadenopathy. Liver: The included upper abdomen shows prominent fatty infiltration of the liver. Bones/joints: Unremarkable. No acute fracture. Soft tissues: Unremarkable. IMPRESSION: No acute findings in the chest. Incidental note of hepatic steatosis. Dictated and Authenticated by: Michael Lopez MD. Lab Data Lab results reviewed: Yes I reviewed the patient's lab results. Labs: Laboratory Tests Range/Units 06/10/24 06/10/24 10:34 11:14 WBC (4.4-10.8) 10^3/uL 8.36 RBC (4.36-5.78) 10^6/uL 5.53 Hgb (13.5-17.5) g/dL 16.6 Hct (40.0-50.0) % 48.7 MCV (80-95) fL 88 MCH (27.0-33.0) pg 30.0 MCHC (32.0-36.0) % 34.1 RDW (11.8-14.1) % 12.7 Plt Count (130-400) 10^3/uL 217 MPV (8.0-11.0) fL 10.2 Immature Gran % % 0.2 Neutrophils % % 71.6 Lymphocytes % % 15.4 Monocytes % % 11.0 Eosinophils % % 1.2 Basophils % % 0.6 Nucleated RBC % (0.0-0.3) % 0.0 Absolute Neutrophils (1.2-6.7) 10^3/uL 5.98 Absolute Lymphocytes (1.2-3.4) 10^3/uL 1.29 Absolute Monocytes (0.1-0.8) 10^3/uL 0.92 H Absolute Eosinophils (0.0-0.7) 10^3/uL 0.10 Absolute Basophils (0.0-0.2) 10^3/uL 0.05 PT (9.1-11.1) sec 10.2 INR (0.9-1.1) 1.0 APTT (23.6-32.8) sec 26.8 Sodium (136-145) mmol/L 139 Potassium (3.5-5.1) mmol/L 3.8 Chloride (98-107) mmol/L 101 Carbon Dioxide (21.0-32.0) mmol/L 26.1 Anion Gap (3-11) mmol/L 11.9 H BUN (7-18) mg/dL 12 Creatinine (0.70-1.30) mg/dL 1.0 Est GFR (CKD-EPI 2020) (mL/min/1.73m2) 92.26 Glucose (74-106) mg/dL 107 H Calcium (8.5-10.1) mg/dL 9.0 Total Bilirubin (0.2-1.0) mg/dL 0.80 AST (15-37) U/L 36 ALT (16-63) U/L 87 H Alkaline Phosphatase (46-116) U/L 84 Troponin I (<or=76) ng/L 4 NT-Pro-B Natriuret Pep (<300) pg/mL 17 Total Protein (6.4-8.2) g/dL 8.1 Albumin (3.4-5.0) g/dL 4.0 COVID-19 Source Nasopharynx SARS-CoV-2 (PCR) (Negative) Negative Influenza Type A (PCR) (Negative) Negative Influenza Type B (PCR) (Negative) Negative RSV (PCR) (Negative) Positive A* Quality:SDOH Health Related Social Needs: No Data to Display PFSH All Active Problems (Updated 06/10/24 @ 12:45 by ADEEL De La Garza) Respiratory syncytial virus (RSV) (Acute) Hyperplastic colon polyp (Acute ~08/2023) Constipation by delayed colonic transit (Acute) Diverticula of colon (Acute) External hemorrhoids with complication (Acute) Steatosis of liver (Acute) Allergic rhinitis (Acute) Thrombosed external hemorrhoid (Acute) GREER (obstructive sleep apnea) (Chronic) Closed fracture of fifth metacarpal bone of right hand (Acute 08/09/20) S/P closed reduction percutaneous pinnin08/13/2020 Fracture of base of fourth metacarpal bone of right hand (Acute 08/09/20) S/P closed reduction percutaneous pinnin08/13/2020 History of cigarette smoking (Acute) Erectile dysfunction (Acute) Gout (Chronic) Hypertension (Chronic) Fatigue (Acute) Obesity (Chronic) Medical History Metabolic syndrome X Hyperlipidemia Tinea pedis Onychomycosis due to dermatophyte Dysphonia (12/16/14) Gastroesophageal reflux disease (10/21/14) Diabetes Rectal bleeding Foot pain, left Fatty (change of) liver, not elsewhere classified Surgical History History of colonoscopy (~08/2023) Hx of arthroscopy of left knee Social History Smoking/Tobacco Use Status: Former Tobacco Use Quit Date: 06/20/04 Smoking risk assessment performed?: Yes Alcohol Intake: current Alcohol Intake frequency: 0-2 drinks per day Alcohol type: beer and hard liquor Drug use: Never Substance use type: does not use Housing: house Do you feel safe at home: Yes Do you feel safe in your relationship?: Yes
[2024-06-10] MEDS: Omnipaque 350 MG/ML 100 ML BTL IJ (10:53)
[2024-06-10] MEDS: Normal Saline - Diluent 50 ML VIAL IJ (10:53)
[2024-06-10 11:18] LABS: COVID-19 PCR Negative (Negative); Influenza A PCR Negative (Negative); Influenza B PCR Negative (Negative)
[2024-06-10 11:19] LABS: RSV PCR Positive (Negative); Source Nasopharynx
[2024-06-10 11:22] LABS: Abs Immature Grans 0.02 10^3/uL (0.0-0.06); Absolute Basophil Count 0.05 10^3/uL (0.0-0.2); Absolute Lymphocyte Count 1.29 10^3/uL (1.2-3.4); Absolute Monocyte Count 0.92 10^3/uL (0.1-0.8); Absolute Neutrophil Count 5.98 10^3/uL (1.2-6.7); Basophils % 0.6 %; Eosinophils % 1.2 %; HCT 48.7 % (40.0-50.0); HGB 16.6 g/dL (13.5-17.5); Immature Grans % 0.2 %; Lymphocytes % 15.4 %; MCHC 34.1 % (32.0-36.0); MCV 88 fL (80-95); MPV 10.2 fL (8.0-11.0); Neutrophils % 71.6 %; Platelet Count 217 10^3/uL (130-400); RBC 5.53 10^6/uL (4.36-5.78); RDW 12.7 % (11.8-14.1); RDW-SD 41.3 fL; WBC 8.36 10^3/uL (4.4-10.8)
[2024-06-10 11:35] LABS: PTT Activated 26.8 sec (23.6-32.8); Prothrombin Time 10.2 sec (9.1-11.1)
[2024-06-10 11:43] LABS: ALT 87 U/L (16-63); AST 36 U/L (15-37); Alkaline Phosphatase 84 U/L (46-116); Anion Gap 11.9 mmol/L (3-11); BUN 12 mg/dL (7-18); CO2 26.1 mmol/L (21.0-32.0); Chloride 101 mmol/L (98-107); Estimated GFR 92.26 (mL/min/1.73m2); Glucose 107 mg/dL (74-106); NT-proBNP 17 pg/mL (<300); Potassium 3.8 mmol/L (3.5-5.1); Sodium 139 mmol/L (136-145); Total Protein 8.1 g/dL (6.4-8.2); Troponin I 4 ng/L (<or=76)
--- NOTE | 2024-06-10 11:54 | DI.VRAD_ITS ---
PROCEDURE INFORMATION: Exam: CTA Chest With Contrast Exam date and time: 06/10/2024 11:23 AM Age: 48 years old Clinical indication: Cough TECHNIQUE: Imaging protocol: Computed tomographic angiography of the chest with contrast. Exam focused on the arteries. 3D rendering (Not supervised by radiologist): MIP and/or 3D reconstructed images were created by the technologist. Contrast material: OMNIPAQUE 350; Contrast volume: 100 ml; Contrast route: INTRAVENOUS (IV); COMPARISON: CR XR CHEST 2V PA LATERAL 09/28/2019 12:16 PM FINDINGS: Pulmonary arteries: Normal. No pulmonary emboli. Aorta: Unremarkable. No aortic aneurysm. No aortic dissection. Lungs: Unremarkable. No consolidation. No masses. Pleural spaces: Unremarkable. No pneumothorax. No pleural effusion. Heart: Unremarkable. No cardiomegaly. No pericardial effusion. Coronary arteries: No coronary artery calcification. Lymph nodes: Small mediastinal lymph nodes. No lymphadenopathy. Liver: The included upper abdomen shows prominent fatty infiltration of the liver. Bones/joints: Unremarkable. No acute fracture. Soft tissues: Unremarkable. IMPRESSION: No acute findings in the chest. Incidental note of hepatic steatosis. Dictated and Authenticated by: Michael Lopez MD. Ordering:LUCIE Ruelas MD
[2024-06-10] MEDS: Benzonatate 100 MG CAP 400 MG PO (13:06)
[2024-06-10] MEDS: Albuterol HFA 8 GM 60 PUFF INH IH (13:06)
[2024-06-10] MEDS: Inhaler, Assist Device 1 EACH MC (13:06)
== END 2024-06-10 13:11 | disposition home or self-care (01) ==
PROVIDERS: Student in an Organized Health Care Education/Training Program; Emergency Provider Physician Assistant; PCP Physician Assistant
DX: R05.9 Cough, unspecified (principal); B97.4 Respiratory syncytial virus as the cause of diseases classified elsewhere; E11.9 Type 2 diabetes mellitus without complications; E78.5 Hyperlipidemia, unspecified; K21.9 Gastro-esophageal reflux disease without esophagitis; Z87.891 Personal history of nicotine dependence
CPT/HCPCS: 71275; 80053; 87637; 93005; 94640; 99285; 83880; 84484; 85025; 85610; 85730; 93010; 99284; J3490; J7620

== ENCOUNTER 2024-09-10 15:09 | Outpatient (REF) | payer BC, SELFPAY ==
[2024-09-10 16:43] LABS: ALT 60 U/L (16-63); AST 25 U/L (15-37); Alkaline Phosphatase 72 U/L (46-116); Anion Gap 9.2 mmol/L (3-11); BUN 11 mg/dL (7-18); Bilirubin, Total 0.6 mg/dL (0.2-1.0); CO2 28.8 mmol/L (21.0-32.0); Calculated LDL 74 mg/dL (<100); Chloride 105 mmol/L (98-107); Cholesterol 141 mg/dL (<200); Estimated GFR 92.26 (mL/min/1.73m2); Glucose 129 mg/dL (74-106); HDL Cholesterol 38 mg/dL (>or=40); Potassium 4.3 mmol/L (3.5-5.1); Sodium 143 mmol/L (136-145); Total Protein 7.3 g/dL (6.4-8.2); Triglyceride 149 mg/dL (<150)
[2024-09-10 16:51] LABS: Hemoglobin A1C 6.2 % (<5.7)
== END 2024-09-10 15:10 | disposition home or self-care (01) ==
LOC: NCHCN 15:09
PROVIDERS: PCP Physician Assistant; Visit Provider Physician Assistant
DX: E11.9 Type 2 diabetes mellitus without complications (principal); E78.5 Hyperlipidemia, unspecified
CPT/HCPCS: 80053; 80061; 83036

== ENCOUNTER 2024-09-13 13:52 | Outpatient (CLI) | payer BC, SELFPAY ==
--- NOTE | 2024-09-13 10:15 | DI.RAD_ITS ---
Exam(s) XR KNEE RT 4V AP,LAT,YOLANDE,PAT EXAM: XR KNEE RT 4V AP,LAT,YOLANDE,PAT CLINICAL HISTORY: RIGHT KNEE PAIN. TECHNIQUE: 2D digital imaging was performed. Three views. COMPARISON: No exams were available for comparison FINDINGS: BONES: No acute fracture is present. No bony destructive lesion is seen. Enthesophyte at tibial tuber omayra. JOINTS: The knee is normally aligned. The joint spaces are maintained. No joint effusion is seen. SOFT TISSUE: Normal. IMPRESSION: Unremarkable radiographs of the right knee. DATA REPOSITORY: RADIATION DOSE DELIVERED:
== END 2024-09-13 13:53 | disposition home or self-care (01) ==
LOC: DIORS 13:52
PROVIDERS: PCP Physician Assistant; Visit Provider Student in an Organized Health Care Education/Training Program
DX: M25.561 Pain in right knee (principal)
CPT/HCPCS: 73564

== ENCOUNTER 2025-01-04 08:38 | Outpatient (REF) | payer BC, SELFPAY ==
[2025-01-04 16:42] LABS: COMMENT (LAB VIEW ONLY) 77.17 mg/dL; Microalb ug/mg Crea 6.0 ug/mg Cr
== END 2025-01-04 08:39 | disposition home or self-care (01) ==
LOC: NCHCN 08:38
PROVIDERS: PCP Physician Assistant; Visit Provider Physician Assistant
DX: E11.9 Type 2 diabetes mellitus without complications (principal)
CPT/HCPCS: 82043; 82570

== ENCOUNTER 2025-04-29 07:21 | Emergency (ER) | payer BC, SELFPAY ==
[2025-04-29] VITALS (55 sets, daily range): BP systolic 127–165; BP diastolic 74–97; PULSE 63–92; RESP 12–30; TEMP 36.6; O2SAT 91–100
--- NOTE | 2025-04-29 07:15 | RT.EKG_ITS ---
APPROVED REPORT Exam: Resting ECG Reason for Exam: Palpatations Patient Location: E HR:84 bpm ECG Measurements Heart Rate 84 AXIS LA 157 P 51 QRSd 94 QRS 55 QT 355 T 33 QTc 420 Conclusion Sinus rhythm...normal P axis, V-rate 60- 99 Low voltage, precordial leads...precordial leads <1.0mV
[2025-04-29 07:49] LABS: Abs Immature Grans 0.03 10^3/uL (0.0-0.06); HCT 43.3 % (40.0-50.0); HGB 15.0 g/dL (13.5-17.5); Immature Grans % 0.4 %; MCH 30.7 pg (27.0-33.0); MCHC 34.6 % (32.0-36.0); MCV 89 fL (80-95); MPV 10.0 fL (8.0-11.0); Platelet Count 221 10^3/uL (130-400); RBC 4.89 10^6/uL (4.36-5.78); RDW 12.4 % (11.8-14.1); RDW-SD 40.1 fL; WBC 7.44 10^3/uL (4.4-10.8)
[2025-04-29 08:20] LABS: ALT 53 U/L (16-63); AST 21 U/L (15-37); Albumin 3.7 g/dL (3.4-5.0); Alkaline Phosphatase 70 U/L (46-116); Anion Gap 10.3 mmol/L (3-11); BUN 16 mg/dL (7-18); Bilirubin, Total 0.6 mg/dL (0.2-1.0); CO2 27.7 mmol/L (21.0-32.0); Calcium 8.6 mg/dL (8.5-10.1); Chloride 102 mmol/L (98-107); Glucose 119 mg/dL (74-106); Magnesium 2.1 mg/dL (1.8-2.4); Potassium 3.9 mmol/L (3.5-5.1); Sodium 140 mmol/L (136-145); TSH (W/Ref FT4) 0.89 uIU/mL (0.36-3.74); Total Protein 7.4 g/dL (6.4-8.2)
[2025-04-29] MEDS: Lactated Ringers 1,000 ML 1000 ML IV (08:32)
[2025-04-29] MEDS: Normal Saline Flush 10 ML SYR IVP (08:32)
--- NOTE | 2025-04-29 08:47 | ED.GENADUL_ITS ---
Discharge Plan Disposition Patient Disposition: Home Condition: Stable Discharge Details Clinical Impression: Palpitations Primary Care Provider: Isaías Larios ED Provider: Ney Coelho Home Meds and New Rx's Prescriptions: Continued multivitamin Tablet 1 tab PO DAILY lorazepam 0.5 mg tablet 0.5 mg PO QHS PRN omeprazole 20 mg capsule,delayed release(DR/EC) 20 - 40 mg PO DAILY modafinil 100 mg tablet 100 mg PO QAM PRN valsartan-hydrochlorothiazide 320-12.5 mg tablet 1 tab PO DAILY albuterol sulfate [ProAir HFA] 90 mcg/actuation HFA aerosol inhaler 2 puff inhalation Q6H PRN ibuprofen 600 mg tablet 600 mg PO TID PRN (Reason: pain) Qty: 30 0RF acetaminophen 500 mg capsule 1,000 mg PO Q8H PRN PRNQty: 90 0RF Mounjaro 5 mg/0.5 mL pen injector 5 mg SUBCUT .weekly Patient Comments: INJECT 5MG UNDER THE SKIN EVERY WEEK atorvastatin 20 mg tablet 20 mg PO DAILY cetirizine [Zyrtec] 10 mg Tablet 10 mg PO PRN PRN dapagliflozin propanediol [Farxiga] 10 mg tablet 10 mg PO DAILY Discharge Instructions Instructions: Binge Drinking, Palpitations ED Additional Instructions: Please follow-up with your primary care physician. Please discuss potential cardiac Holter monitoring. Please do not abuse alcohol. Drink plenty of clear fluids like water and Gatorade to stay hydrated. Return to the emergency department immediately for any worsening or new concerning symptoms. Stand Alone Forms: Portal Information Referrals: Isaías Larios [Primary Care Provider, Medicine] Discharge Data Discharge Date/Time-TO BE ENTERED AT DEPARTURE: 04/29/25 13:56 HPI General Mode of arrival: ambulatory . Date/Time Provider Initiated Documentation: 04/29/25 07:43 . Limitations to Documentation: no limitations . Information obtained by: patient . HPI Narrative: HISTORY OF PRESENT ILLNESS 49-year-old male with a history of hypertension and diabetes presenting with palpitations. The patient reports experiencing palpitations, describing them as a sensation of his heart skipping beats, which induces coughing and an unusual feeling in his chest. No associated chest pain. No shortness of breath. He states that the symptoms have been present intermittently over the past few days but escalated in intensity this morning. He also mentions episodes of tachycardia, although none have occurred recently. The patient reports no history of thyroid disorders, leg swelling, calf pain, recent long-distance travel, prolonged immobility, rashes, or tick bites. He consumes alcohol primarily on weekends, with a significant intake over the past weekend due to social events. His daily caffeine intake is approximately 2 cups. He has previously worn a Holter monitor, but not within the past year. The patient decided to seek medical care due to the persistence of his symptoms this morning. Patient has no symptoms at this time. Related Data Home Medications Medication Instructions Recorded Confirmed lorazepam 0.5 mg tablet 0.5 mg PO QHS PRN 09/25/19 1 07/02/24 atorvastatin 20 mg tablet 20 mg PO DAILY 06/17/2004/20 acetaminophen 500 mg capsule 1,000 mg (2 x 500 mg) PO Q8H PRN 08/13/20 05/02/25 PRN #90 caps ibuprofen 600 mg tablet 600 mg PO TID PRN pain #30 t abs 08/13/20 05/02/25 cetirizine 10 mg tablet (Zyrtec) 10 mg PO PRN PRN 12/1805/02/25 albuterol sulfate 90 mcg/actuation 2 puff inhalation Q 6H PRN 07/11/23 05/02/25 aerosol inhaler (ProAir HFA) modafinil 100 mg tablet 100 mg PO QAM PRN 07/11/23 1 07/02/24 valsartan 320 1 tab PO DAILY 07/11/2304/20 mg-hydrochlorothiazide 12.5 mg tablet multivitamin 1 tab PO DAILY 07/26/2304/20 omeprazole 20 mg capsule,delayed 20 - 40 mg PO DAILY 0 07/26/23 05/02/25 release dapagliflozin propanediol 10 mg 10 mg PO DAILY 4 05/02/25 tablet (Farxiga) tirzepatide 5 mg/0.5 mL 5 mg subcut .weekly 04/29/25 05/02/25 subcutaneous pen injector (Narda) Previous Rx's Medication Instructions Recorded acetaminophen 500 mg capsule 1,000 mg (2 x 500 mg) PO Q8H PRN 08/13/20 PRN #90 caps ibuprofen 600 mg tablet 600 mg PO TID PRN pain #30 t abs 08/13/20 Allergies Allergy/AdvReac Type Severity Reaction Status Date / Time Penicillins Allergy Unknown Unsure Verified 05/02/25 13:26 happened as child grass pollen AdvReac Mild Other (See Verified 05/02/25 13:26 Comment) General Stated Complaint: Palpitatns CANDE: 3 Review of Systems All systems reviewed & are unremarkable except as noted in HPI and below Constitutional Constitutional: Denies fever(s) Cardiovascular Cardiovascular: Reports as per HPI Exam Const General: cooperative and no acute distress HENMT Mouth: mucous membranes dry Eyes Conjunctivae: normal conjunctivae Sclera: normal sclerae Neck Neck: trachea midline and supple Resp Auscultation: clear to auscultation bilaterally, no rales, no rhonchi and no wheezes Cardio Rate: regular rate and not tachycardic Rhythm: regular rhythm Heart Sounds: no gallops, no murmurs and no rubs GI Palpation: soft, not firm, no guarding, no masses, not rigid and nontender Skin General skin exam: no rashes or lesions noted and turgor decreased Neuro General: patient alert, patient awake, patient oriented x3 and tone normal Extrem General: no pedal edema, no calf tenderness and no edema Psych Appearance: grossly normal Mental Status: mental status grossly normal Speech and Movement: speech and movement normal Course Vital Signs Vital signs: Vital Signs Temperature 36.6 C 04/29/25 07:26 Pulse 85 04/29/25 07:26 Respiratory Rate 17 04/29/25 07:26 Blood Pressure 165/95 H 04/29/25 07:26 Pulse Oximetry 97 04/29/25 07:26 Temperature 36.6 C 04/29/25 07:26 Temperature Source Oral 04/29/25 07:26 Pulse 85 04/29/25 07:26 Respiratory Rate 17 04/29/25 07:26 Blood Pressure 165/95 H 04/29/25 07:26 Blood Pressure Position Sitting 04/29/25 07:26 Pulse Oximetry 97 04/29/25 07:26 Oxygen Delivery Method Room Air 04/29/25 07:26 Oxygen Flow Rate 0 04/29/25 07:26 Pain Level 0 04/29/25 07:26 Lab/Test Results Lab/Test Results: Laboratory Tests Range/Units 04/29/25 07:40 WBC (4.4-10.8) 10^3/uL 7.44 RBC (4.36-5.78) 10^6/uL 4.89 Hgb (13.5-17.5) g/dL 15.0 Hct (40.0-50.0) % 43.3 MCV (80-95) fL 89 MCH (27.0-33.0) pg 30.7 MCHC (32.0-36.0) % 34.6 RDW (11.8-14.1) % 12.4 Plt Count (130-400) 10^3/uL 221 MPV (8.0-11.0) fL 10.0 Immature Gran % % 0.4 Neutrophils % % 70.9 Lymphocytes % % 17.3 Monocytes % % 8.9 Eosinophils % % 1.7 Basophils % % 0.8 Nucleated RBC % (0.0-0.3) % 0.0 Absolute Neutrophils (1.2-6.7) 10^3/uL 5.27 Absolute Lymphocytes (1.2-3.4) 10^3/uL 1.29 Absolute Monocytes (0.1-0.8) 10^3/uL 0.66 Absolute Eosinophils (0.0-0.7) 10^3/uL 0.13 Absolute Basophils (0.0-0.2) 10^3/uL 0.06 Sodium (136-145) mmol/L 140 Potassium (3.5-5.1) mmol/L 3.9 Chloride (98-107) mmol/L 102 Carbon Dioxide (21.0-32.0) mmol/L 27.7 Anion Gap (3-11) mmol/L 10.3 BUN (7-18) mg/dL 16 Creatinine (0.70-1.30) mg/dL 1.0 Est GFR (CKD-EPI 2020) (mL/min/1.73m2) 91.69 Glucose (74-106) mg/dL 119 H Calcium (8.5-10.1) mg/dL 8.6 Magnesium (1.8-2.4) mg/dL 2.1 Total Bilirubin (0.2-1.0) mg/dL 0.6 AST (15-37) U/L 21 ALT (16-63) U/L 53 Alkaline Phosphatase (46-116) U/L 70 Total Protein (6.4-8.2) g/dL 7.4 Albumin (3.4-5.0) g/dL 3.7 TSH (0.36-3.74) uIU/mL 0.89 Medical Decision Making ASSESSMENT AND PLAN Initial Assessment: 49-year-old male patient presents with palpitations, feeling of skipped heartbeats. Recent heavy alcohol consumption this past weekend. Patient hypertensive 165/95 on initial vitals. Patient saturating well in no respiratory distress. No arrhythmia noted on engine monitor. Differential Diagnosis: - Cardiac irritability: Alcohol consumption contributing factor. Plan: Check electrolytes, liver, thyroid, kidney function, cardiac biomarkers. - Myocardial infarction: Atypical presentation. Plan: Obtain initial troponin level, recheck in 1 hour. - Anxiety: Contributing factor. Plan: Monitor symptoms, consider Holter monitor. ED Course: - Intravenous fluids administered for dehydration - Labs sent for electrolytes, liver function, thyroid function, kidney function, cardiac biomarkers - Continuous cardiac monitoring implemented - EKG was reviewed and interpreted by me: Please see report, sinus rhythm low voltage precordial leads, no signs of WPW, no STEMI, nondiagnostic. Clinical Impression: - Cardiac irritability - Anxiety - dehydration Disposition: - Follow-Up: Consult primary care physician for Holter monitor Patient Education: Alcohol and caffeine can cause cardiac irritability. Monitor symptoms and follow up with primary care physician. This document was written with the assistance of ANNIE Billingsley. The patient consented to its use. [facility] All Active Problems (Updated 05/02/25 @ 15:50 by ADEEL Schulte) Chest pain (Acute) Heart palpitations (Acute) Palpitations (Acute) Hyperplastic colon polyp (Acute ~08/2023) Constipation by delayed colonic transit (Acute) Diverticula of colon (Acute) External hemorrhoids with complication (Acute) Steatosis of liver (Acute) Allergic rhinitis (Acute) Thrombosed external hemorrhoid (Acute) GREER (obstructive sleep apnea) (Chronic) Closed fracture of fifth metacarpal bone of right hand (Acute 08/09/20) S/P closed reduction percutaneous pinnin08/13/2020 Fracture of base of fourth metacarpal bone of right hand (Acute 08/09/20) S/P closed reduction percutaneous pinnin08/13/2020 History of cigarette smoking (Acute) Erectile dysfunction (Acute) Gout (Chronic) Hypertension (Chronic) Fatigue (Acute) Obesity (Chronic) Medical History Metabolic syndrome X Hyperlipidemia Tinea pedis Onychomycosis due to dermatophyte Dysphonia (12/16/14) Gastroesophageal reflux disease (10/21/14) Diabetes Rectal bleeding Foot pain, left Fatty (change of) liver, not elsewhere classified Surgical History History of colonoscopy (~08/2023) Hx of arthroscopy of left knee Social History Smoking/Tobacco Use Status: Former Tobacco Use Quit Date: 06/20/04 Smoking risk assessment performed?: Yes Alcohol Intake: current Alcohol Intake frequency: 0-2 drinks per day Alcohol type: beer and hard liquor Drug use: Never Substance use type: does not use Housing: house Do you feel safe at home: Yes Do you feel safe in your relationship?: Yes PAWSS Have you Been Recently Intoxicated or Drunk Within the Last 30 days?: Yes Have you Ever Experienced Previous Episodes of Alcohol Withdrawal?: No Have you ever Experienced Withdrawal Seizures?: No Have you ever Experienced Delirium Tremens(DT)s?: No Have you ever undergone Alcohol Rehabilitation Treatment (i.e, inpt ot outpatient treatment programs)?: No Have you ever Experienced Blackouts?: No Have you ever Combined Alcohol with other Downers within the last 90 days?: No Have you ever Combined Alcohol with any other Substance of Abuse during the last 90 days?: No Positive Blood Alcohol level on Presentation? [PCS.BAL]: No Evidence of Increased Autonomic Activity (i.e. HR>120, tremor, sweating, agitation, nausea)?: No Result: 1
[2025-04-29 09:41] LABS: Troponin I < 4 ng/L (<or=76)
[2025-04-29 10:12] LABS: Troponin I < 4 ng/L (<or=76)
== END 2025-04-29 13:56 | disposition home or self-care (01) ==
PROVIDERS: Emergency Provider Student in an Organized Health Care Education/Training Program; PCP Physician Assistant
DX: R00.2 Palpitations (principal); I10 Essential (primary) hypertension
CPT/HCPCS: 36415; 80053; 93005; 96360; 96361; 99284; 83735; 84443; 84484; 85025; 93010

== ENCOUNTER 2025-05-02 12:51 | Emergency (ER) | payer BC, SELFPAY ==
[2025-05-02] VITALS (17 sets, daily range): BP systolic 133–156; BP diastolic 75–96; PULSE 72–113; RESP 14–27; TEMP 36.1; O2SAT 93–100
--- NOTE | 2025-05-02 12:45 | RT.EKG_ITS ---
APPROVED REPORT Exam: Resting ECG Reason for Exam: chest pain Patient Location: E HR:74 bpm ECG Measurements Heart Rate 74 AXIS DE 154 P 48 QRSd 104 QRS 48 QT 378 T 18 QTc 419 Conclusion Sinus rhythm...normal P axis, V-rate 60- 99 No STEMI
--- NOTE | 2025-05-02 13:00 | DI.RAD_ITS ---
Exam(s) XR PORTABLE CHEST AP EXAM: XR PORTABLE CHEST AP CLINICAL HISTORY: chest pain. TECHNIQUE: 2D digital imaging was performed. COMPARISON: CR XR CHEST 2V PA LATERAL from 09/28/2019 FINDINGS: Single AP portable view. Heart size is upper normal. The mediastinum is not widened. Lungs are clear. No infiltrates nor obvious pleural effusions. IMPRESSION: No acute pulmonary findings on this single AP portable view of the chest. DATA REPOSITORY: RADIATION DOSE DELIVERED:
[2025-05-02 13:22] LABS: Abs Immature Grans 0.03 10^3/uL (0.0-0.06); HCT 42.2 % (40.0-50.0); HGB 14.9 g/dL (13.5-17.5); Immature Grans % 0.4 %; MCH 31.5 pg (27.0-33.0); MCHC 35.3 % (32.0-36.0); MCV 89 fL (80-95); MPV 10.0 fL (8.0-11.0); Platelet Count 246 10^3/uL (130-400); RBC 4.73 10^6/uL (4.36-5.78); RDW 12.0 % (11.8-14.1); RDW-SD 39.4 fL; WBC 8.15 10^3/uL (4.4-10.8)
[2025-05-02 13:39] LABS: Lipase 41 U/L (<53)
[2025-05-02 13:42] LABS: ALT 57 U/L (10-49); AST 30 U/L (<34); Albumin 4.4 g/dL (3.4-5.0); Alkaline Phosphatase 63 U/L (46-116); Anion Gap 12.7 mmol/L (3-11); BUN 13 mg/dL (9-23); Bilirubin, Total 0.80 mg/dL (0.2-1.2); CO2 22.3 mmol/L (20.0-31.0); Calcium 9.0 mg/dL (8.3-10.6); Chloride 105 mmol/L (98-107); Glucose 122 mg/dL (74-106); Potassium 3.5 mmol/L (3.5-5.1); Sodium 140 mmol/L (136-145); Total Protein 7.2 g/dL (5.7-8.2)
[2025-05-02 13:44] LABS: TSH (W/Ref FT4) 0.77 uIU/mL (0.55-4.78)
[2025-05-02 13:49] LABS: D-Dimer 192 ng/mlFEU (<500)
[2025-05-02 15:02] LABS: Lab Add On Test DONE
[2025-05-02 15:38] LABS: Troponin I < 3 ng/L (<54)
[2025-05-02 15:42] LABS: Troponin I < 3 ng/L (<54)
--- NOTE | 2025-05-02 15:52 | W.ED.GENAD ---
Discharge Plan Disposition Patient Disposition: Home Condition: Stable Discharge Details Clinical Impression: Heart palpitations, Chest pain Primary Care Provider: Isaías Larios ED Provider: Asha Gonzalez Home Meds and New Rx's Prescriptions: Continued multivitamin Tablet 1 tab PO DAILY lorazepam 0.5 mg tablet 0.5 mg PO QHS PRN omeprazole 20 mg capsule,delayed release(DR/EC) 20 - 40 mg PO DAILY modafinil 100 mg tablet 100 mg PO QAM PRN valsartan-hydrochlorothiazide 320-12.5 mg tablet 1 tab PO DAILY albuterol sulfate [ProAir HFA] 90 mcg/actuation HFA aerosol inhaler 2 puff inhalation Q6H PRN ibuprofen 600 mg tablet 600 mg PO TID PRN (Reason: pain) Qty: 30 0RF acetaminophen 500 mg capsule 1,000 mg PO Q8H PRN PRNQty: 90 0RF Mounjaro 5 mg/0.5 mL pen injector 5 mg SUBCUT .weekly Patient Comments: INJECT 5MG UNDER THE SKIN EVERY WEEK atorvastatin 20 mg tablet 20 mg PO DAILY cetirizine [Zyrtec] 10 mg Tablet 10 mg PO PRN PRN dapagliflozin propanediol [Farxiga] 10 mg tablet 10 mg PO DAILY Discharge Instructions Instructions: Chest Pain (DC), Palpitations ED Additional Instructions: Follow up for the Holter monitor tomorrow Make sure you are drinking at least eight 8 ounce glasses of water daily Stay away from any alcohol consumption or caffeine Please follow-up with your PCP next week for reassessment and return earlier should you have new or worsening complaints Stand Alone Forms: Portal Information, Work Release Referrals: Isaías Larios [Primary Care Provider, Medicine] Discharge Data Discharge Date/Time-TO BE ENTERED AT DEPARTURE: 05/02/25 16:15 HPI General Date/Time Provider Initiated Documentation: 05/02/25 12:59. HPI Narrative: 49-year-old male with history of diabetes hyperlipidemia and high blood pressure presents with palpitations and presyncopal symptoms just prior to arrival. EMS was able to de-escalate patient as he appeared quite anxious upon arrival. Their EKG did not show acute ischemia or injury. Patient describes his symptoms as strong irregular heartbeat with some discomfort. He states he was evaluated for similar presentation on Tuesday. Denies recent flight surgeries long drives. Denies recent illnesses or change in medications. Patient states she is scheduled for an outpatient Holter monitor but has not had it applied yet. He denies known exacerbating or alleviating factors. Denies nausea or shortness of breath. Denies exertional component to his symptoms. Blood sugar was 130 prior to arrival. Related Data Home Medications Medication Instructions Recorded Confirmed lorazepam 0.5 mg tablet 0.5 mg PO QHS PRN 09/25/19 05/02/25 atorvastatin 20 mg tablet 20 mg PO DAILY 06/17/20 05/02/25 acetaminophen 500 mg capsule 1,000 mg (2 x 500 mg) PO Q8H PRN 08/13/20 05/02/25 PRN #90 caps ibuprofen 600 mg tablet 600 mg PO TID PRN pain #30 tabs 08/13/20 05/02/25 cetirizine 10 mg tablet (Zyrtec) 10 mg PO PRN PRN 01/02/22 05/02/25 albuterol sulfate 90 mcg/actuation 2 puff inhalation Q6H PRN 07/11/23 05/02/25 aerosol inhaler (ProAir HFA) modafinil 100 mg tablet 100 mg PO QAM PRN 07/11/23 05/02/25 valsartan 320 1 tab PO DAILY 07/11/23 05/02/25 mg-hydrochlorothiazide 12.5 mg tablet multivitamin 1 tab PO DAILY 07/26/23 05/02/25 omeprazole 20 mg capsule,delayed 20 - 40 mg PO DAILY 07/26/23 05/02/25 release dapagliflozin propanediol 10 mg 10 mg PO DAILY 06/10/24 05/02/25 tablet (Farxiga) tirzepatide 5 mg/0.5 mL 5 mg subcut .weekly 04/29/25 05/02/25 subcutaneous pen injector (Heshamunsowmya) Previous Rx's Medication Instructions Recorded acetaminophen 500 mg capsule 1,000 mg (2 x 500 mg) PO Q8H PRN 08/13/20 PRN #90 caps ibuprofen 600 mg tablet 600 mg PO TID PRN pain #30 tabs 08/13/20 Allergies Allergy/AdvReac Type Severity Reaction Status Date / Time Penicillins Allergy Unknown Unsure Verified 05/02/25 13:26 happened as child grass pollen AdvReac Mild Other (See Verified 05/02/25 13:26 Comment) General Stated Complaint: Chest Pain CANDE: 3 Exam Narrative Exam Narrative: Alert and oriented male in no acute distress cardiac rate rhythm regular no abdominal tenderness, specifically no abdominal bruit or pulsatile mass no murmurs or rubs lungs clear to auscultation no respiratory distress calves no Kesling or tenderness appreciated Course Vital Signs Vital signs: Vital Signs Temperature 36.1 C L 05/02/25 12:51 Pulse 82 05/02/25 12:51 Respiratory Rate 16 05/02/25 12:51 Blood Pressure 135/95 H 05/02/25 12:51 Pulse Oximetry 100 05/02/25 12:51 Temperature 36.1 C L 05/02/25 12:51 Pulse 75 05/02/25 15:16 Pulse 92 H 05/02/25 15:16 Respiratory Rate 14 05/02/25 15:16 Respiratory Effort Normal 05/02/25 13:18 Respiratory Depth Normal 05/02/25 13:18 Respiratory Pattern Normal 05/02/25 13:18 Blood Pressure 133/75 05/02/25 15:16 Blood Pressure Mean 93 05/02/25 15:16 Blood Pressure Position Supine 05/02/25 12:51 Pulse Oximetry 93 05/02/25 15:16 Oxygen Delivery Method Room Air 05/02/25 12:51 Oxygen Flow Rate 0 05/02/25 12:51 Pain Level 3 05/02/25 12:51 Lab/Test Results Lab/Test Results: Laboratory Tests Range/Units 05/02/25 05/02/25 05/02/25 13:11 14:59 15:00 WBC (4.4-10.8) 10^3/uL 8.15 RBC (4.36-5.78) 10^6/uL 4.73 Hgb (13.5-17.5) g/dL 14.9 Hct (40.0-50.0) % 42.2 MCV (80-95) fL 89 MCH (27.0-33.0) pg 31.5 MCHC (32.0-36.0) % 35.3 RDW (11.8-14.1) % 12.0 Plt Count (130-400) 10^3/uL 246 MPV (8.0-11.0) fL 10.0 Immature Gran % % 0.4 Neutrophils % % 71.3 Lymphocytes % % 18.4 Monocytes % % 8.3 Eosinophils % % 0.9 Basophils % % 0.7 Nucleated RBC % (0.0-0.3) % 0.0 Absolute Neutrophils (1.2-6.7) 10^3/uL 5.81 Absolute Lymphocytes (1.2-3.4) 10^3/uL 1.50 Absolute Monocytes (0.1-0.8) 10^3/uL 0.68 Absolute Eosinophils (0.0-0.7) 10^3/uL 0.07 Absolute Basophils (0.0-0.2) 10^3/uL 0.06 D-Dimer (<500) ng/mlFEU 192 Sodium (136-145) mmol/L 140 Potassium (3.5-5.1) mmol/L 3.5 Chloride (98-107) mmol/L 105 Carbon Dioxide (20.0-31.0) mmol/L 22.3 Anion Gap (3-11) mmol/L 12.7 H BUN (9-23) mg/dL 13 Creatinine (0.73-1.18) mg/dL 0.9 Est GFR (CKD-EPI 2020) (mL/min/1.73m2) 85.83 Glucose (74-106) mg/dL 122 H Calcium (8.3-10.6) mg/dL 9.0 Total Bilirubin (0.2-1.2) mg/dL 0.80 AST (<34) U/L 30 ALT (10-49) U/L 57 H Alkaline Phosphatase (46-116) U/L 63 Troponin I (<54) ng/L < 3 < 3 Total Protein (5.7-8.2) g/dL 7.2 Albumin (3.4-5.0) g/dL 4.4 Lipase (<53) U/L 41 TSH (0.55-4.78) uIU/mL 0.77 Add-On Test Request DONE Medical Decision Making Results: Troponins negative x 2 white blood cell count and CBC including D-dimer within normal limits although patient appears slightly dehydrated, I reviewed patient's diagnostic labs from prior visit and there is no significant acute abnormality Assessment and plan: Patient in no acute distress, troponins negative x 2 presenting with chest discomfort and palpitations. He is encouraged to have a Holter monitor in the outpatient setting which will be applied tomorrow and he will be given a work note to rest tomorrow. He will need to follow-up with his PCP next week. I have low suspicion this is cardiac and he had a chest CT when in the past year that does not show evidence of thoracic aortic aneurysm or abdominal aortic aneurysm. There was a discussion regarding decreasing alcohol consumption at his prior visit he is encouraged to continue with this plan return precautions reviewed and patient expressed understanding. Patient's blood pressure and exam have remained stable his EKG is nonischemic D-dimer is 192 and troponin is less than 3 hours prior reassuring. Patient will remain classic outpatient follow-up and stress test at the discretion of his PCP. Return precautions reviewed and patient expressed understanding. PFSH All Active Problems (Updated 05/02/25 @ 15:50 by ADEEL Schulte) Chest pain (Acute) Heart palpitations (Acute) Palpitations (Acute) Hyperplastic colon polyp (Acute ~08/2023) Constipation by delayed colonic transit (Acute) Diverticula of colon (Acute) External hemorrhoids with complication (Acute) Steatosis of liver (Acute) Allergic rhinitis (Acute) Thrombosed external hemorrhoid (Acute) GREER (obstructive sleep apnea) (Chronic) Closed fracture of fifth metacarpal bone of right hand (Acute 08/09/20) S/P closed reduction percutaneous pinnin08/13/2020 Fracture of base of fourth metacarpal bone of right hand (Acute 08/09/20) S/P closed reduction percutaneous pinnin08/13/2020 History of cigarette smoking (Acute) Erectile dysfunction (Acute) Gout (Chronic) Hypertension (Chronic) Fatigue (Acute) Obesity (Chronic) Medical History Metabolic syndrome X Hyperlipidemia Tinea pedis Onychomycosis due to dermatophyte Dysphonia (12/16/14) Gastroesophageal reflux disease (10/21/14) Diabetes Rectal bleeding Foot pain, left Fatty (change of) liver, not elsewhere classified Surgical History History of colonoscopy (~08/2023) Hx of arthroscopy of left knee Social History Smoking/Tobacco Use Status: Former Tobacco Use Quit Date: 06/20/04 Smoking risk assessment performed?: Yes Alcohol Intake: current Alcohol Intake frequency: 0-2 drinks per day Alcohol type: beer and hard liquor Drug use: Never Substance use type: does not use Housing: house Do you feel safe at home: Yes Do you feel safe in your relationship?: Yes
== END 2025-05-02 16:15 | disposition home or self-care (01) ==
PROVIDERS: Emergency Provider Physician Assistant; PCP Physician Assistant
DX: R07.9 Chest pain, unspecified (principal); R00.2 Palpitations
CPT/HCPCS: 99284; 99285; 36416; 82962; 80053; 83690; 93005; 71045; 84443; 84484; 85025; 85379; 93010